=== PATIENT | female | born 1955 | race Caucasian/White ===

== ENCOUNTER 2023-04-13 06:42 | Outpatient (OUT) | payer MEDICARE, BC, SELFPAY ==
[2023-04-13 07:28] LABS: Basophils Percent Auto 0.5 % (0.2-2.0); Eosinophils Absolute Auto 0.2 10^3/uL (0.0-0.7); Eosinophils Percent Auto 2.4 % (0.9-7.0); Hematocrit 40.5 % (36.0-48.0); Hemoglobin 13.2 g/dL (12.0-16.0); Immature Granulocytes Abs Auto 0.03 10^3/uL (0.00-0.03); Immature Granulocytes Pct Auto 0.4 % (0.0-0.5); Mean Corpuscular HGB Conc 32.6 g/dL (29.9-35.2); Mean Corpuscular Hemoglobin 29.4 pg (26.7-34.0); Mean Corpuscular Volume 90.2 fL (81.0-99.0); Mean Platelet Volume 10.6 fL (9.5-13.5); Monocytes Absolute Auto 0.6 10^3/uL (0.3-0.8); Monocytes Percent Auto 6.9 % (1.7-12.0); Neutrophils Absolute Auto 5.2 10^3/uL (1.4-6.5); Neutrophils Percent Auto 64.8 % (43.0-75.0); Platelet Count 255 10^3/uL (150-450); Red Blood Count 4.49 10^6/uL (4.20-5.40); Red Cell Distribution Width 14.8 % (11.0-15.0); White Blood Count 8.1 10^3/uL (4.0-11.0)
[2023-04-13 08:36] LABS: Alanine Aminotransferase 17 U/L (14-59); Albumin Globulin Ratio 1.1; Alkaline Phosphatase 77 U/L (46-116); Anion Gap 10.5; Aspartate Amino Transferase 16 U/L (15-37); BUN Creatinine Ratio 10.7; Bilirubin Total 0.6 mg/dL (0.2-1.0); Calcium 9.4 mg/dL (8.5-10.1); Carbon Dioxide 29.9 mmol/L (21.0-32.0); Chloride 106 mmol/L (98-107); Chol HDL Ratio 3.5; Cholesterol 184 mg/dL (<=200); Estimated GFR (African America >60 (>=60); Estimated GFR (Non-African Ame >60 (>=60); Globulin 3.8 g/dL; Glucose 101 mg/dL (74-106); HDL Cholesterol 52 mg/dL (40-60); LDL Cholesterol Calculated 108.6 mg/dL; Potassium 4.4 mmol/L (3.5-5.1); Sodium 142 mmol/L (136-145); Thyroid Stimulating Hormone 2.246 uIU/mL (0.358-3.740); Total Protein 7.8 g/dL (6.4-8.2); Triglycerides 117 mg/dL (<=150); VLDL CHOLESTEROL 23.4 mg/dL
[2023-04-13 09:28] LABS: Estimated Average Glucose 103 mg/dL; Glycohemoglobin A1C 5.2 % (4.5-6.2)
== END 2023-04-13 06:43 | disposition home or self-care (01) ==
PROVIDERS: PCP Family Medicine; Visit Provider Family Medicine
DX: E05.90 Thyrotoxicosis, unspecified without thyrotoxic crisis or storm (principal); E78.5 Hyperlipidemia, unspecified; R73.09 Other abnormal glucose; D64.9 Anemia, unspecified
CPT/HCPCS: 36415; 80053; 80061; 83036; 83540; 84436; 84443; 84479; 85025

== ENCOUNTER 2023-12-04 12:12 | Outpatient (OUT) | payer MEDICARE, BC, SELFPAY ==
--- NOTE | 2023-12-04 12:26 | XR_ITS ---
The [address] [address] Patient Name: KEIKO ESCOBEDO MRN: [id number] date: 1955 Sex: F Assigned Patient Location: [facility] Current Patient Location: Accession/Order Number: [id number] Exam Date: 12/04/2023 12:20 Report Date: 12/05/2023 07:45 At the request of: JASS UNDERWOOD Procedure: XR cervical spine 5V EXAMINATION: XR cervical spine 5V HISTORY: Cervical Arthritis M46.92 ; chronic left side neck pain ; no known injury. COMPARISON: No relevant comparison available. FINDINGS: BONES: Grade 1 anterolisthesis of C4 on 5. No fracture or bone lesion. Mild degenerative facet arthropathy C4-C5, C5-C6. DISC SPACES: Moderate narrowing C5-C6, C6-C7 with posterior disc-osteophyte complexes causing bilateral foramen narrowing, and likely central canal narrowing. PARASPINOUS: Negative. No paraspinous abnormality is seen. OTHER: Negative. XR/XR cervical spine 5V IMPRESSION: 1. Degenerative disc disease of lower cervical spine resulting in foramen, and likely central canal, narrowing. Electronically authenticated by: EDINSON GREGORIO Date: 12/05/2023 07:45
== END 2023-12-04 12:13 | disposition home or self-care (01) ==
LOC: RAD 12:13
PROVIDERS: PCP Family Medicine; Visit Provider Family Medicine
DX: M46.92 Unspecified inflammatory spondylopathy, cervical region (principal); M50.30 Other cervical disc degeneration, unspecified cervical region
CPT/HCPCS: 72050

== ENCOUNTER 2023-12-10 13:27 | Outpatient (OUT) | payer MEDICARE, BC, SELFPAY ==
--- NOTE | 2023-12-10 13:31 | MR_ITS ---
[address] [address] Patient Name: KEIKO ESCOBEDO MRN: [id number] date: 1955 Sex: F Assigned Patient Location: MRI Current Patient Location: MRI Accession/Order Number: [id number] Exam Date: 12/10/2023 13:38 Report Date: 12/10/2023 14:37 At the request of: JASS UNDERWOOD Procedure: MR cervical spine wo con EXAM: MR cervical spine wo con HISTORY: Cervical Arthritis M46.92 COMPARISON: Cervical spine radiographs from 12/04/2023 TECHNIQUE: Multiplanar multisequence MRI was obtained through the cervical spine without contrast. FINDINGS: Osseous: The vertebral body heights are maintained. No fracture. No bone marrow edema. Disc height loss at C5-C6 and C6-C7 with associated osteophytes. Anterolisthesis of C4 relative to C5 of 0.2 cm. Cervical spinal cord: No abnormal signal is demonstrated within the substance of the cervical spinal cord. Soft tissues/ligaments: The ligaments appear intact. The prevertebral soft tissues and posterior paraspinal musculature are normal in signal intensity. Disc levels: C2-C3: No disc protrusion, spinal canal stenosis, or neural foraminal stenosis. C3-C4: Small posterior disc bulge. Mild spinal canal stenosis. No significant foraminal stenosis C4-C5: A small broad-based posterior disc bulge. Mild left facet arthrosis. Mild left foraminal stenosis. Mild spinal canal stenosis. C5-C6: Broad-based posterior disc bulge/osteophyte complex. Posterior ligamentous thickening. Moderate spinal canal stenosis. Mild left foraminal stenosis. C6-C7: Broad-based posterior disc bulge/osteophyte complex. Moderate spinal canal stenosis. Moderate left foraminal stenosis. C7-T1: Small posterior disc bulge. Mild spinal canal stenosis. Mild bilateral facet arthrosis. No significant spinal canal stenosis. MR/MR cervical spine wo con IMPRESSION: 1. Multilevel degenerative changes of the cervical spine most notably at C5-C6 and C6/C7 where there is moderate spinal canal stenosis and mild to moderate foraminal stenosis as above. Electronically authenticated by: JESUS QUIJANO Date: 12/10/2023 14:37
== END 2023-12-10 13:28 | disposition home or self-care (01) ==
LOC: MRI 13:27
PROVIDERS: PCP Family Medicine; Visit Provider Family Medicine
DX: M46.92 Unspecified inflammatory spondylopathy, cervical region (principal); M50.322 Other cervical disc degeneration at C5-C6 level; M50.323 Other cervical disc degeneration at C6-C7 level
CPT/HCPCS: 72141

== ENCOUNTER 2023-12-23 08:59 | Outpatient (OUT) | payer MEDICARE, BC, SELFPAY ==
--- NOTE | 2023-12-23 09:01 | MM_ITS ---
Patient Name: KEIKO ESCOBEDO MR#: [id number] : 1955 Exam Date: 12/23/2023 Ordering Doctor: DR Ivan Ortega . RADIOLOGY REPORT PROCEDURE: MM TOMOSYNTHESIS SCREENING BI COMPARISON: MG MAMM SCREEN 3D BEATRICE CAD, 09/18/2022. MG MAMM SCREEN 3D BEATRICE CAD, 02/27/2021. MG MAMM SCREEN BEATRICE W CAD, 02/28/2019. MG MAMM SCREEN BEATRICE W CAD, 01/12/2018. INDICATIONS: Screening Calculator Name NCI Breast Cancer Risk Assessment Tool 5 Year Breast Cancer Risk 2.40% Lifetime Breast Cancer Risk 6.90% Personal Breast Cancer No Personal Ovarian Cancer No Treatments None Family Cancers None LOCATION: [facility] BREAST COMPOSITION: Extremely dense, which lowers the sensitivity of mammography. FINDINGS: DIAGNOSTIC CATEGORY 2--BENIGN FINDING: RIGHT BREAST: No significant suspicious finding. Stable benign-appearing calcification. No significant change has occurred. LEFT BREAST: No significant suspicious finding. Stable benign-appearing calcification. No significant change has occurred. RECOMMENDATIONS: ROUTINE MAMMOGRAM AND CLINICAL EVALUATION IN 12 MONTHS. PLEASE NOTE: A NORMAL MAMMOGRAM DOES NOT EXCLUDE THE POSSIBILITY OF BREAST CANCER. A CLINICALLY SUSPICIOUS PALPABLE LUMP SHOULD BE BIOPSIED. Dictated by: Medhat Luciano M.D. on 12/23/2023 at 15:45 Approved by: Medhat Luciano M.D. on 12/23/2023 at 15:53
--- OUTSIDE RECORDS SUMMARY | 2023-12-23 09:19 | XMS_ITS | CCD ---
Author Organization [facility] Care Team Providers Care Nut Roaster Helper Name Role Phone CORINA Thompson Attending Provider [phone] Lydia Thompson Attending Unavailable Lydia Thompson Admitting Unavailable NO FAMILY, PHYSICIAN Primary Care Unavailable KJ, DR REGAN Admitting Unavailable RITAY, DR REGAN Primary Care Unavailable RITAY, DR REGAN Attending Unavailable HOY, DR REGAN Admitting Unavailable HOY, DR REGAN Primary Care Unavailable HOY, DR REGAN Consulting Unavailable RITAY, DR REGAN Attending Unavailable ZIEBER, DR EDINSON Asencio Consulting Unavailable KJ, DR REGAN Admitting Unavailable HOY, DR REGAN Primary Care Unavailable HOY, DR REGAN Consulting Unavailable KJ, DR REGAN Attending Unavailable Problems Active Problems Problem Classification Problem Date Documented Da te Episodic/Chronic Disorders of lipid metabolism (1 source) Hyperlipidemia, unspecified; Translations: [HYPERLIPIDEMIA UNSPECIFIED] Onset: 03-18-2022 Chronic Nutritional deficiencies (4 sources) Vitamin D deficiency, unspecified; Translations: [VITAMIN D DEFICIENCY UNSPECIFIED] Onset: 03-17-2022 Chronic Other screening for suspected conditions (not mental disorders or infectious disease) (4 sources) Encounter for screening mammogram for malignant neoplasm of breast; Translations: [ENC SCR MAMMO MALIG NEOPLASM BREAST] Onset: 09-18-2022 Episodic Unclassified (1 source) Frequency of micturition; Translations: [Frequency of micturition] Onset: 07-05-2022 Past or Other Problems Problem Classification Problem Date Documented Da te Episodic/Chronic Deficiency and other anemia (1 source) Anemia, unspecified; Translations: [ANEMIA UNSPECIFIED] Onset: 03-18-2022 Episodic Diabetes mellitus without complication (1 source) Other abnormal glucose; Translations: [OTHER ABNORMAL GLUCOSE] Onset: 03-18-2022 Episodic Other gastrointestinal disorders (1 source) Constipation, unspecified; Translations: [CONSTIPATION UNSPECIFIED] Onset: 03-18-2022 Episodic Results Test Name Value Interpretation Reference Range Facility MG MAMM SCREEN 3D BEATRICE CADon 09-18-2022 MG MAMM SCREEN 3D BEATRICE CAD Patient: KEIKO ESCOBEDO Exam Date: 09/18/2022 : 1955 Gender:F Ordering : DR JASS UNDERWOOD . Admission #: [id number] Family : Order #: [id number] CLICK HERE TO VIEW EXAM RADIOLOGY REPORT PROCEDURE: MAMMOGRAM SCREENING 3D BILATERAL CAD COMPARISON: MG MAMM SCREEN 3D BEATRICE CAD, 02/27/2021. MG MAMM SCREEN BEATRICE W CAD, 02/28/2019. INDICATIONS: Screening mammography Calculator Name NCI Breast Cancer Risk Assessment Tool 5 Year Breast Cancer Risk 2.40% Lifetime Breast Cancer Risk 7.30% Personal Breast Cancer No Personal Ovarian Cancer No Treatments None Family Cancers None LOCATION: [facility] BREAST COMPOSITION: Extremely dense, which lowers the sensitivity of mammography. FINDINGS: DIAGNOSTIC CATEGORY 2--BENIGN FINDING: RIGHT BREAST: No significant suspicious finding. Scattered benign-appearing calcifications are present. No significant change has occurred. LEFT BREAST: No significant suspicious finding. Scattered benign-appearing calcifications are present. No significant change has occurred. RECOMMENDATIONS: ROUTINE MAMMOGRAM AND CLINICAL EVALUATION IN 12 MONTHS. PLEASE NOTE: A NORMAL MAMMOGRAM DOES NOT EXCLUDE THE POSSIBILITY OF BREAST CANCER. A CLINICALLY SUSPICIOUS PALPABLE LUMP SHOULD BE BIOPSIED. Dictated by: Edinson Luciano M.D. on 09/18/2022 at 15:42 Approved by: Edinson Luciano M.D. on 09/18/2022 at 15:45 Normal [facility] Urine Cultureon 07-05-2022 Bacteria identified Cx Nom (U) Reason for Exam Urinary frequency Urine ORGANISM: Escherichia coli (O:ESCCOL) [place] Count >100,000 Aerobic LELAND Charge (NUC86) ----- SUSCEPTIBILITY ---- ORGANISM: O:ESCCOL ANTIBIOTIC INTERPRETATION LELAND Amikacin S <16 Ampicillin S <8 Ampicillin/Sulbactam S <8/4 Aztreonam S <4 Cefazolin S <2 Cefepime S <2 Ceftazidime S <1 Ceftazidime/Avibacta m S <8 Ceftriaxone S <1 Ciprofloxacin S <1 Ertapenem S <0.5 Gentamicin S <4 Levofloxacin S <2 Meropenem S <1 Nitrofurantoin S <32 Piperacillin/Tazobac olsen S <16 Tetracycline S <4 Tigecycline S <2 Tobramycin S <4 Trimethoprim/Sulfame thoxazole S <2/38 S = SUSCEPTIBLE I = INTERMEDIATE R = RESISTANT BLANK = DATA NOT AVAILABLE, OR DRUG NOT ADVISABLE OR TESTED R* = RESISTANCE DUE TO EXTENDED SPECTRUM BETA-LACTAMASES ESBL = EXTENDED SPECTRUM BETA-LACTAMASE TFG = THYMIDINE-DEPENDENT STRAIN LILA = BETA-LACTAMASE POSITIVE IB = INDUCIBLE BETA-LACTAMASE. APPEARS IN PLACE OF 'S' WITH SPECIES KNOWN TO POSSESS INDUCIBLE BETA-LACTAMASES. POTENTIALLY THEY MAY BECOME RESISTANT TO ALL B-LACTAM DRUGS. PERFORMED BY: [place] [address] PATHOLOGIST APPEALS REPRESENTATIVE EDI HARVEY M.D. Normal [facility] Comment on above: Performed By: #### C UU #### [address] INSULINon 03-18-2022 Insulin 3.5 uIU/mL Normal 2.6-24.9 [facility] Comment on above: Performed By: #### I NSULIN #### [facility] [address] [place] [address] Dr. Chantel James CBC AUTO DIFFon 03-17-2022 BASO # 0.0 103/ul Normal 0.0-0.1 [facility] Comment on above: Performed By: #### C BC #### [facility] [address] [place] [address] Dr. Chantel James Basophils/100 WBC (Bld) 0.5 % Normal 0.2-2.0 [facility] Comment on above: Performed By: #### C BC #### [facility] [address] [place] [address] Dr. Chantel James EO # 0.2 103/ul Normal 0.0-0.7 [facility] Comment on above: Performed By: #### C BC #### [facility] [address] [place] [address] Dr. Chantel James Eosinophils/100 WBC (Bld) 2.6 % Normal 0.9-7.0 [facility] Comment on above: Performed By: #### C BC #### [facility] [address] [place] [address] Dr. Chantel James Erythrocyte distribution width (RBC) [Ratio] 14.6 % Normal 11.0-15.0 [facility] Comment on above: Performed By: #### C BC #### [facility] [address] [place] [address] Dr. Chantel James Hematocrit (Bld) [Volume fraction] 39.4 % Normal 36.0-48.0 [facility] Comment on above: Performed By: #### C BC #### [facility] [address] [place] [address] Dr. Chantel James Hemoglobin (Bld) [Mass/Vol] 12.6 g/dL Normal 12.0-16.0 [facility] Comment on above: Performed By: #### C BC #### [facility] [address] [place] [address] Dr. Chantel James IG # 0.03 10e3/ul Normal 0.00-0.03 [facility] Comment on above: Performed By: #### C BC #### [facility] [address] [place] [address] Dr. Chantel James IG % 0.4 % Normal 0.0-0.5 [facility] Comment on above: Performed By: #### C BC #### [facility] [address] [place] [address] Dr. Chantel James LYMPH # 2.3 103/ul Normal 1.2-3.8 [facility] Comment on above: Performed By: #### C BC #### [facility] [address] [place] [address] Dr. Chantel James Lymphocytes/100 WBC (Bld) 28.0 % Normal 20.5-60.0 [facility] Comment on above: Performed By: #### C BC #### [facility] [address] [place] [address] Dr. Chantel James MANUAL DIFF REQ NO Normal [facility] Comment on above: Performed By: #### C BC #### [facility] [address] [place] [address] Dr. Chantel James MCH (RBC) [Entitic mass] 29.4 pg Normal 26.7-34.0 [facility] Comment on above: Performed By: #### C BC #### [facility] [address] [place] [address] Dr. Chantel James MCHC (RBC) [Mass/Vol] 32.0 g/dL Normal 29.9-35.2 [facility] Comment on above: Performed By: #### C BC #### [facility] [address] [place] [address] Dr. Chantel James MCV (RBC) [Entitic vol] 91.8 fL Normal 81.0-99.0 [facility] Comment on above: Performed By: #### C BC #### [facility] [address] [place] [address] Dr. Chantel James MONO # 0.6 103/ul Normal 0.3-0.8 [facility] Comment on above: Performed By: #### C BC #### [facility] [address] [place] [address] Dr. Chantel James Monocytes/100 WBC (Bld) 7.7 % Normal 1.7-12.0 [facility] Comment on above: Performed By: #### C BC #### [facility] [address] [place] [address] Dr. Chantel James NEUT # 4.9 103/ul Normal 1.4-6.5 [facility] Comment on above: Performed By: #### C BC #### [facility] [address] [place] [address] Dr. Chantel James Neutrophils/100 WBC (Bld) 60.8 % Normal 43.0-75.0 [facility] Comment on above: Performed By: #### C BC #### [facility] [address] [place] [address] Dr. Chantel James Platelet mean volume (Bld) [Entitic vol] 10.5 fL Normal 9.5-13.5 [facility] Comment on above: Performed By: #### C BC #### [facility] [address] [place] [address] Dr. Chantel James PLT 261 103/ul Normal 150-450 [facility] Comment on above: Performed By: #### C BC #### [facility] [address] [place] [address] Dr. Chantel James RBC 4.29 106/ul Normal 4.20-5.40 [facility] Comment on above: Performed By: #### C BC #### [facility] [address] [place] [address] Dr. Chantel James WBC 8.1 103/ul Normal 4.0-11.0 [facility] Comment on above: Performed By: #### C BC #### [facility] [address] [place] [address] Dr. Chantel James GLYCOHEMOGLOBIN A1Con 2021 ADA RECOMMENDATION SEE BELOW Normal [facility] Comment on above: Result Comment: ADA RECOMMENDED LIMIT 4.0 - 6.0 ADA THERAPEUTIC TARGET < 7.0 ACTION SUGGESTED > 7.0 Performed By: #### A 1C #### [facility] [address] [place] [address] Dr. Chantel James Glucose [Mass/Vol] 105 mg/dL Normal [facility] Comment on above: Performed By: #### A 1C #### [facility] [address] [place] [address] Dr. Chantel James HbA1c (Bld) [Mass fraction] 5.3 % Normal 4.5-6.2 [facility] Comment on above: Performed By: #### A 1C #### [facility] [address] [place] [address] Dr. Chantel James IRONon 03-17-2022 Iron [Mass/Vol] 83.0 ug/dL Normal 50.0-170.0 [facility] Comment on above: Performed By: #### V ITAD, IRON #### [facility] [address] [address] [address] Chantel James LIPID PROFILEon 03-17-2022 CHOL-HDL RATIO NORM SEE BELOW Normal [facility] Comment on above: Result Comment: 3.3 - 4.4 LOW RISK 4.4 - 7.1 AVERAGE RISK 7.1 - 11.0 MODERATE RISK >11.0 HIGH RISK Performed By: #### L IPID, TSH, CMP #### [facility] [address] [address] [address] Chantel James Cholesterol [Mass/Vol] 250 mg/dL Critically high <=200 [facility] Comment on above: Performed By: #### L IPID, TSH, CMP #### [facility] [address] [address] [address] Chantel James Cholesterol in HDL [Mass/Vol] 49 mg/dL Normal 40-60 [facility] Comment on above: Performed By: #### L IPID, TSH, CMP #### [facility] [address] [address] [address] Chantel James Cholesterol in LDL [Mass/Vol] 173.8 mg/dL Normal [facility] Comment on above: Performed By: #### L IPID, TSH, CMP #### [facility] [address] [address] [address] Chantel James Cholesterol.total/Cho lesterol in HDL [Mass ratio] 5.1 {ratio} Normal [facility] Comment on above: Performed By: #### L IPID, TSH, CMP #### [facility] [address] [address] [address] Chantel James HDL NORMAL > or = 60 mg/dl - LOW CARDIOVASCULAR RISK <40 mg/dl - HIGH CARDIOVASCULAR RISK Normal [facility] Comment on above: Performed By: #### L IPID, TSH, CMP #### [facility] [address] [place] [address] Dr. Chantel James LDL CALC NORMAL SEE BELOW Normal [facility] Comment on above: Result Comment: <100 mg/dl OPTIMAL 100 - 129 mg/dl NEAR OR ABOVE OPTIMAL 130 - 159 mg/dl BORDERLINE HIGH 160 - 189 mg/dl HIGH >190 mg/dl VERY HIGH Performed By: #### L IPID, TSH, CMP #### [facility] [address] [address] [address] Chantel James Triglyceride [Mass/Vol] 136 mg/dL Normal <=150 [facility] Comment on above: Performed By: #### L IPID, TSH, CMP #### [facility] [address] [address] [address] Chanetl James VLDL CALC 27.2 mg/dL Normal [facility] Comment on above: Performed By: #### L IPID, TSH, CMP #### [facility] [address] [place] [address] Dr. Chantel James PROF 14(COMP METB)on 022 Albumin [Mass/Vol] 4.0 g/dL Normal 3.4-5.0 [facility] Comment on above: Performed By: #### L IPID, TSH, CMP #### [facility] [address] [place] [address] Dr. Chantel James Albumin/Globulin [Mass ratio] 1.1 {ratio} Normal [facility] Comment on above: Performed By: #### L IPID, TSH, CMP #### [facility] [address] [place] [address] Dr. Chantel James ALP [Catalytic activity/Vol] 75 U/L Normal 46-116 [facility] Comment on above: Performed By: #### L IPID, TSH, CMP #### [facility] [address] [address] [address] Chantel James ALT [Catalytic activity/Vol] 26 U/L Normal 14-59 [facility] Comment on above: Performed By: #### L IPID, TSH, CMP #### [facility] [address] [place] [address] Dr. Chantel James Anion gap [Moles/Vol] 13.3 mmol/L Normal [facility] Comment on above: Performed By: #### L IPID, TSH, CMP #### [facility] [address] [place] [address] Dr. Chantel James AST [Catalytic activity/Vol] 25 U/L Normal 15-37 [facility] Comment on above: Performed By: #### L IPID, TSH, CMP #### [facility] [address] [address] [address] Chantel James Bilirubin [Mass/Vol] 0.5 mg/dL Normal 0.2-1.0 [facility] Comment on above: Performed By: #### L IPID, TSH, CMP #### [facility] [address] [address] [address] Chantel James Calcium [Mass/Vol] 9.2 mg/dL Normal 8.5-10.1 [facility] Comment on above: Performed By: #### L IPID, TSH, CMP #### [facility] [address] [place] [address] Dr. Chantel James Chloride [Moles/Vol] 104 mmol/L Normal 98-107 [facility] Comment on above: Performed By: #### L IPID, TSH, CMP #### [facility] [address] [place] [address] Dr. Chantel James CO2 [Moles/Vol] 28.4 mmol/L Normal 21.0-32.0 [facility] Comment on above: Performed By: #### L IPID, TSH, CMP #### [facility] [address] [place] [address] Dr. Chantel James Creatinine [Mass/Vol] 1.23 mg/dL Critically high 0.55-1.02 [facility] Comment on above: Performed By: #### L IPID, TSH, CMP #### [facility] [address] [place] [address] Dr. Chantel James EGFR-AF [place] 53 mL/min/1.73m2 Critically low >=60 [facility] Comment on above: Performed By: #### L IPID, TSH, CMP #### [facility] [address] [place] [address] Dr. Chantel James EGFR-NON AF [place] 43 mL/min/1.73m2 Critically low >=60 [facility] Comment on above: Performed By: #### L IPID, TSH, CMP #### [facility] [address] [address] [address] Chantel James Globulin (S) [Mass/Vol] 3.8 g/dL Normal [facility] Comment on above: Performed By: #### L IPID, TSH, CMP #### [facility] [address] [place] [address] Dr. Chantel James Glucose [Mass/Vol] 99 mg/dL Normal 74-106 [facility] Comment on above: Performed By: #### L IPID, TSH, CMP #### [facility] [address] [place] [address] Dr. Chantel James Potassium [Moles/Vol] 4.7 mmol/L Normal 3.5-5.1 [facility] Comment on above: Performed By: #### L IPID, TSH, CMP #### [facility] [address] [place] [address] Dr. Chantel James Protein [Mass/Vol] 7.8 g/dL Normal 6.4-8.2 [facility] Comment on above: Performed By: #### L IPID, TSH, CMP #### [facility] [address] [place] [address] Dr. Chantel James Sodium [Moles/Vol] 141 mmol/L Normal 136-145 [facility] Comment on above: Performed By: #### L IPID, TSH, CMP #### [facility] [address] [place] [address] Dr. Chantel James Urea nitrogen [Mass/Vol] 17.0 mg/dL Normal 7.0-18.0 [facility] Comment on above: Performed By: #### L IPID, TSH, CMP #### [facility] [address] [place] [address] Dr. Chantel James Urea nitrogen/Creatinine [Mass ratio] 13.8 mg/mg Normal [facility] Comment on above: Performed By: #### L IPID, TSH, CMP #### [facility] [address] [place] [address] Dr. Chantel James TSHon 03-17-2022 TSH 1.674 uIU/mL Normal 0.358-3.740 [facility] Comment on above: Performed By: #### L IPID, TSH, CMP #### [facility] [address] [address] [address] Chantel James VITAMIN D 25 OHon 03-17-2022 VIT D 25-OH 29.9 ng/mL Normal [facility] Comment on above: Performed By: #### V ITAD, IRON #### [facility] [address] [address] [address] Chantel James VIT D RANGES SEE BELOW Normal [facility] Comment on above: Result Comment: <20 ng/mL Vit D deficient 20 - <30 ng/mL Vit D insufficient 30 - 100 ng/mL Vit D sufficient >100 ng/mL Potential Toxicity Performed By: #### V ITAD, IRON #### [facility] [address] [address] [address] Chantel James Consent for COVID Vaccineon 12-06-2020 SARS-CoV-2 (COVID-19) RNA GRAYSON+probe Ql (Unsp spec) [id number] 5#1.00CD:127 Normal [facility] Consent for COVID Vaccineon 11-01-2020 SARS-CoV-2 (COVID-19) RNA GRAYSON+probe Ql (Unsp spec) [id number] 4#1.00CD:127 Normal [facility] Consent for Treatmenton Consent for Treatment [id number] 7#1.00CD:127 Normal [facility] Coding Summary.on 10-31-2020 Coding Summary. CODING DATE: 10/31/2020 FINAL [facility] DSC STATUS: PAYOR: Medicare APC DESCRIPTION [employer] - Level 1B ($11-$20) ADMIT DX: REASON FOR VISIT DX: Z23 Encounter for immunization FINAL DX: PRINCIPAL: Z23 Encounter for immunization SECONDARY: PYMT PROC APC STAT DESCRIPTION DOCTOR NAME DATE NOTE: The code number assigned matches the documented diagnosis and / or procedure in the patient's chart. However, the narrative phrase printed from the coding software may appear abbreviated, or result in slightly different terminology. Coded By: Kamila Nogueira CphT Date Saved: 10/31/2020 01:42 pm Normal [facility] Encounters Encounter Date Encounter Type Care Provider Facility Start: 09-18-2022 End: 09-19-[address] JASS UNDERWOOD Facility:[facility] Start: 07-05-2022 End: 07-05-2022 ambulatory Lydia Thompson Facility:[facility] Start: 07-05-2022 End: 07-05-2022 ambulatory [facility] Lydia Thompson Work Phone: [facility] Work Phone: Start: 07-05-2022 End: 07-05-2022 Departed Referred [facility] Lydia Thompson Work Phone: [facility] [place] Start: 03-17-2022 End: 03-18-[address] JASS UNDERWOOD Facility:[facility] Start: 01-17-[address] JASS UNDERWOOD Facility :[facility] Plan of Treatment Date Care Activity Detail Author Bacteria identified in Urine by Culture [facility] Payers Date Payer Category Payer Medicare [id number] 1961 Self-pay 1961 Unknown [id number] 1955 Unknown [id number] .16.84 [id number] 1955 Unknown [id number] .16.84 [id number] 1955 Unknown [id number] .16.84 [id number] Unknown [id number] .16.8 [id number] Social History Date Type Detail Facility [facility] Work Phone: Start: 1955 Sex Assigned At Female [facility] Evaluation note Note Date & Type Note Facility Evaluation note No assessment information availa luciano [facility] Work Phone: Summary Purpose Family History No Family History Records FoundNo Family History Records FoundNo Family History Records Found Advance Directives No Advanced Directives Records FoundNo Advanced Directives Records FoundNo Advanced Directives Records Found Chief Complaint and Reason for Visit Chief Complaint Urinary frequency Additional Source Comments INFORMATION SOURCE (unrecogn ized section and content) DATE CREATED AUTHOR 02/27/2021 [facility] DATE CREATED AUTHOR AUTHOR'S ORGANIZ ATION 07/09/2022 [facility] DATE CREATED AUTHOR AUTHOR'S ORGANIZ ATION 09/25/2022 [facility] Care Teams (unrecognized sec tion and content) Team Status: Inactive Member Role Status Dates CORINA Sabillon Attending Provider Active Goals (unrecognized section and content) Goals may be documented in a n alternate section FOR RECORDS PERTAINING TO PATIENTS WHO ARE OR HAVE BEEN ENROLLED IN A CHEMICAL DEPENDENCY/SUBSTANCEABUSE PROGRAM, SOME INFORMATION MAY BE OMITTED. This clinical summary was aggregated from multiple sources. Caution should be exercised in using it in the provision of clinical care. This summary normalizes information from multiple sources, and as a consequence, information in this document may materially change the coding, format and clinical context of patient data. In addition, data may be omitted in some cases. CLINICAL DECISIONS SHOULD BE BASED ON THE PRIMARY CLINICAL RECORDS. [facility] provides no warranty or guarantee of the accuracy or completeness of information in this document.
== END 2023-12-23 09:00 | disposition home or self-care (01) ==
LOC: MAMMO 08:59
PROVIDERS: PCP Family Medicine; Visit Provider Family Medicine
DX: Z12.31 Encounter for screening mammogram for malignant neoplasm of breast (principal)
CPT/HCPCS: 77063; 77067

== ENCOUNTER 2024-05-17 07:03 | Outpatient (OUT) | payer MEDICARE, BC, SELFPAY ==
--- OUTSIDE RECORDS SUMMARY | 2024-05-17 07:07 | XMS_ITS | CCD ---
Author Organization [facility] Care Team Providers Care Powdered Metal Supervisor Name Role Phone CORINA Thompson Attending Provider [phone] Lydia Thompson Attending Unavailable Lydia Thompson Admitting Unavailable NO FAMILY, PHYSICIAN Primary Care Unavailable KJ, DR REGAN Admitting Unavailable HOY, DR REGAN Primary Care Unavailable HOY, DR REGAN Attending Unavailable HOY, DR REGAN Admitting Unavailable HOY, DR REGAN Primary Care Unavailable HOY, DR REGAN Consulting Unavailable HOY, DR REGAN Attending Unavailable ZIEBER, DR EDINSON Asencio Consulting Unavailable KJ, DR REGAN Admitting Unavailable KJ, DR REGAN Primary Care Unavailable HOY, DR [...] : DR JASS UNDERWOOD . Admission #: [id number] Family : Order #: [id number] CLICK HERE TO VIEW EXAM RADIOLOGY REPORT [...] Treatments None Family Cancers None LOCATION: [facility] BREAST COMPOSITION: Extremely dense, which lowers the [...] M.D. on 09/18/2022 at 15:45 Normal [facility] Urine Cultureon 07-05-2022 Bacteria identified Cx Nom (U) Reason for Exam Urinary frequency Urine ORGANISM: Escherichia coli (O:ESCCOL) [place] Count >100,000 Aerobic LELAND Charge (NUC86) ----- [...] RESISTANT TO ALL B-LACTAM DRUGS. PERFORMED BY: [place] [id number] PATHOLOGIST CORE DRILLER HELPER EDI HARVEY M.D. [facility] Comment on above: Performed By: #### C UU #### [facility] [address] [place] [address] INSULINon 03-18-2022 Insulin 3.5 uIU/mL Normal 2.6-24.9 [facility] Comment on above: Performed By: #### I NSULIN #### [facility] [address] [place] [address] Dr. Chantel James CBC AUTO DIFFon 03-17-2022 BASO # 0.0 103/ul Normal 0.0-0.1 [facility] Comment on above: Performed By: #### C BC #### [facility] [address] [place] [address] Dr. Chantel James Basophils/100 WBC (Bld) 0.5 % Normal 0.2-2.0 [facility] Comment on above: Performed By: #### C BC #### [facility] [address] [place] [address] Dr. Chantel James EO # 0.2 103/ul Normal 0.0-0.7 [facility] Comment on above: Performed By: #### C BC #### [facility] [address] [place] [address] Dr. Chantel James Eosinophils/100 WBC (Bld) 2.6 % Normal 0.9-7.0 [facility] Comment on above: Performed By: #### C BC #### [facility] [address] [place] [address] Dr. Chantel James Erythrocyte distribution width (RBC) [Ratio] 14.6 % Normal 11.0-15.0 [facility] Comment on above: Performed By: #### C BC #### [facility] [address] [place] [address] Dr. Chantel James Hematocrit (Bld) [Volume fraction] 39.4 % Normal 36.0-48.0 [facility] Comment on above: Performed By: #### C BC #### [facility] [address] [place] [address] Dr. Chantel James Hemoglobin (Bld) [Mass/Vol] 12.6 g/dL Normal 12.0-16.0 [facility] Comment on above: Performed By: #### C BC #### [facility] [address] [place] [address] Dr. Chantel James IG # 0.03 10e3/ul Normal 0.00-0.03 [facility] Comment on above: Performed By: #### C BC #### [facility] [address] [place] [address] Dr. Chantel James IG % 0.4 % Normal 0.0-0.5 [facility] Comment on above: Performed By: #### C BC #### [facility] [address] [place] [address] Dr. Chantel James LYMPH # 2.3 103/ul Normal 1.2-3.8 [facility] Comment on above: Performed By: #### C BC #### [facility] [address] [place] [address] Dr. Chantel James Lymphocytes/100 WBC (Bld) 28.0 % Normal 20.5-60.0 [facility] Comment on above: Performed By: #### C BC #### [facility] [address] [place] [address] Dr. Chantel James MANUAL DIFF REQ NO Normal [facility] Comment on above: Performed By: #### C BC #### [facility] [address] [place] [address] Dr. Chantel James MCH (RBC) [Entitic mass] 29.4 pg Normal 26.7-34.0 [facility] Comment on above: Performed By: #### C BC #### [facility] [address] [place] [address] Dr. Chantel James MCHC (RBC) [Mass/Vol] 32.0 g/dL Normal 29.9-35.2 [facility] Comment on above: Performed By: #### C BC #### [facility] [address] [place] [address] Dr. Chantel James MCV (RBC) [Entitic vol] 91.8 fL Normal 81.0-99.0 [facility] Comment on above: Performed By: #### C BC #### [facility] [address] [place] [address] Dr. Chantel James MONO # 0.6 103/ul Normal 0.3-0.8 [facility] Comment on above: Performed By: #### C BC #### [facility] [address] [place] [address] Dr. Chantel James Monocytes/100 WBC (Bld) 7.7 % Normal 1.7-12.0 [facility] Comment on above: Performed By: #### C BC #### [facility] [address] [place] [address] Dr. Chantel James NEUT # 4.9 103/ul Normal 1.4-6.5 [facility] Comment on above: Performed By: #### C BC #### [facility] [address] [place] [address] Dr. Chantel James Neutrophils/100 WBC (Bld) 60.8 % Normal 43.0-75.0 [facility] Comment on above: Performed By: #### C BC #### [facility] [address] [place] [address] Dr. Chantel James Platelet mean volume (Bld) [Entitic vol] 10.5 fL Normal 9.5-13.5 [facility] Comment on above: Performed By: #### C BC #### [facility] [address] [place] [address] Dr. Chantel James PLT 261 103/ul Normal 150-450 [facility] Comment on above: Performed By: #### C BC #### [facility] [address] [address] [address] Chantel James RBC 4.29 106/ul Normal 4.20-5.40 [facility] Comment on above: Performed By: #### C BC #### [facility] [address] [place] [address] Dr. Chantel James WBC 8.1 103/ul Normal 4.0-11.0 [facility] Comment on above: Performed By: #### C BC #### [facility] [address] [place] [address] Dr. Chantel James GLYCOHEMOGLOBIN A1Con 2021 ADA RECOMMENDATION SEE BELOW Normal [facility] Comment on above: Result Comment: ADA RECOMMENDED LIMIT 4.0 - 6.0 ADA THERAPEUTIC TARGET < 7.0 ACTION SUGGESTED > 7.0 Performed By: #### A 1C #### [facility] [address] [place] [address] Dr. Chantel James Glucose [Mass/Vol] 105 mg/dL Normal [facility] Comment on above: Performed By: #### A 1C #### [facility] [address] [place] [address] Dr. Chantel James HbA1c (Bld) [Mass fraction] 5.3 % Normal 4.5-6.2 [facility] Comment on above: Performed By: #### A 1C #### [facility] [address] [place] [address] Dr. hCantel James IRONon 03-17-2022 Iron [Mass/Vol] 83.0 ug/dL Normal 50.0-170.0 [facility] Comment on above: Performed By: #### V ITAD, IRON #### [facility] [address] [address] [address] Chantel James LIPID PROFILEon 03-17-2022 CHOL-HDL RATIO NORM SEE BELOW Normal [facility] Comment on above: Result Comment: 3.3 - 4.4 LOW RISK 4.4 - 7.1 AVERAGE RISK 7.1 - 11.0 MODERATE RISK >11.0 HIGH RISK Performed By: #### L IPID, TSH, CMP #### [facility] [address] [address] [address] Chantel James Cholesterol [Mass/Vol] 250 mg/dL Critically high <=200 [facility] Comment on above: Performed By: #### L IPID, TSH, CMP #### [facility] [address] [address] [address] Chantel James Cholesterol in HDL [Mass/Vol] 49 mg/dL Normal 40-60 [facility] Comment on above: Performed By: #### L IPID, TSH, CMP #### [facility] [address] [address] [address] Chantel James Cholesterol in LDL [Mass/Vol] 173.8 mg/dL Normal [facility] Comment on above: Performed By: #### L IPID, TSH, CMP #### [facility] [address] [address] [address] Chantel James Cholesterol.total/Cho lesterol in HDL [Mass ratio] 5.1 {ratio} Normal [facility] Comment on above: Performed By: #### L IPID, TSH, CMP #### [facility] [address] [address] [address] Chantel James HDL NORMAL > or = 60 mg/dl - LOW CARDIOVASCULAR RISK <40 mg/dl - HIGH CARDIOVASCULAR RISK Normal [facility] Comment on above: Performed By: #### L IPID, TSH, CMP #### [facility] [address] [place] [address] Dr. Chantel James LDL CALC NORMAL SEE BELOW Normal [facility] Comment on above: Result Comment: <100 mg/dl OPTIMAL 100 - 129 mg/dl NEAR OR ABOVE OPTIMAL 130 - 159 mg/dl BORDERLINE HIGH 160 - 189 mg/dl HIGH >190 mg/dl VERY HIGH Performed By: #### L IPID, TSH, CMP #### [facility] [address] [place] [address] Dr. Chantel James Triglyceride [Mass/Vol] 136 mg/dL Normal <=150 [facility] Comment on above: Performed By: #### L IPID, TSH, CMP #### [facility] [address] [place] [address] Dr. Chantel James VLDL CALC 27.2 mg/dL Normal [facility] Comment on above: Performed By: #### L IPID, TSH, CMP #### [facility] [address] [place] [address] Dr. Chantel James PROF 14(COMP METB)on 022 Albumin [Mass/Vol] 4.0 g/dL Normal 3.4-5.0 [facility] Comment on above: Performed By: #### L IPID, TSH, CMP #### [facility] [address] [place] [address] Dr. Chantel James Albumin/Globulin [Mass ratio] 1.1 {ratio} Normal [facility] Comment on above: Performed By: #### L IPID, TSH, CMP #### [facility] [address] [place] [address] Dr. Chantel James ALP [Catalytic activity/Vol] 75 U/L Normal 46-116 [facility] Comment on above: Performed By: #### L IPID, TSH, CMP #### [facility] [address] [place] [address] Dr. Chantel James ALT [Catalytic activity/Vol] 26 U/L Normal 14-59 [facility] Comment on above: Performed By: #### L IPID, TSH, CMP #### [facility] [address] [place] [address] Dr. Chantel James Anion gap [Moles/Vol] 13.3 mmol/L Normal [facility] Comment on above: Performed By: #### L IPID, TSH, CMP #### [facility] [address] [place] [address] Dr. Chantel James AST [Catalytic activity/Vol] 25 U/L Normal 15-37 [facility] Comment on above: Performed By: #### L IPID, TSH, CMP #### [facility] [address] [address] [address] Chantel James Bilirubin [Mass/Vol] 0.5 mg/dL Normal 0.2-1.0 [facility] Comment on above: Performed By: #### L IPID, TSH, CMP #### [facility] [address] [place] [address] Dr. Chantel James Calcium [Mass/Vol] 9.2 mg/dL Normal 8.5-10.1 [facility] Comment on above: Performed By: #### L IPID, TSH, CMP #### [facility] [address] [place] [address] Dr. Chantel James Chloride [Moles/Vol] 104 mmol/L Normal 98-107 [facility] Comment on above: Performed By: #### L IPID, TSH, CMP #### [facility] [address] [place] [address] Dr. Chantel James CO2 [Moles/Vol] 28.4 mmol/L Normal 21.0-32.0 [facility] Comment on above: Performed By: #### L IPID, TSH, CMP #### [facility] [address] [place] [address] Dr. Chantel James Creatinine [Mass/Vol] 1.23 mg/dL Critically high 0.55-1.02 [facility] Comment on above: Performed By: #### L IPID, TSH, CMP #### [facility] [address] [place] [address] Dr. Chantel James EGFR-AF NIGERIAN 53 mL/min/1.73m2 Critically low >=60 [facility] Comment on above: Performed By: #### L IPID, TSH, CMP #### [facility] [address] [place] [address] Dr. Chantel James EGFR-NON AF NIGERIAN 43 mL/min/1.73m2 Critically low >=60 [facility] Comment on above: Performed By: #### L IPID, TSH, CMP #### [facility] [address] [address] [address] Chantel James Globulin (S) [Mass/Vol] 3.8 g/dL Normal [facility] Comment on above: Performed By: #### L IPID, TSH, CMP #### [facility] [address] [address] [address] Chantel James Glucose [Mass/Vol] 99 mg/dL Normal 74-106 [facility] Comment on above: Performed By: #### L IPID, TSH, CMP #### [facility] [address] [address] [address] Chantel James Potassium [Moles/Vol] 4.7 mmol/L Normal 3.5-5.1 [facility] Comment on above: Performed By: #### L IPID, TSH, CMP #### [facility] [address] [place] [address] Dr. Chantel James Protein [Mass/Vol] 7.8 g/dL Normal 6.4-8.2 [facility] Comment on above: Performed By: #### L IPID, TSH, CMP #### [facility] [address] [place] [address] Dr. Chantel James Sodium [Moles/Vol] 141 mmol/L Normal 136-145 [facility] Comment on above: Performed By: #### L IPID, TSH, CMP #### [facility] [address] [place] [address] Dr. Chantel James Urea nitrogen [Mass/Vol] 17.0 mg/dL Normal 7.0-18.0 [facility] Comment on above: Performed By: #### L IPID, TSH, CMP #### [facility] [address] [place] [address] Dr. Chantel James Urea nitrogen/Creatinine [Mass ratio] 13.8 mg/mg Normal [facility] Comment on above: Performed By: #### L IPID, TSH, CMP #### [facility] [address] [place] [address] Dr. Chantel James TSHon 03-17-2022 TSH 1.674 uIU/mL Normal 0.358-3.740 [facility] Comment on above: Performed By: #### L IPID, TSH, CMP #### [facility] [address] [place], [place] [address] Dr. Chantel James VITAMIN D 25 OHon 03-17-2022 VIT D 25-OH 29.9 ng/mL Normal [facility] Comment on above: Performed By: #### V ITAD, IRON #### [facility] [address] [place], [place] [address] Dr. Chantel James VIT D RANGES SEE BELOW Normal [facility] Comment on above: Result Comment: <20 ng/mL Vit D deficient 20 - <30 ng/mL Vit D insufficient 30 - 100 ng/mL Vit D sufficient >100 ng/mL Potential Toxicity Performed By: #### V ITAD, IRON #### [facility] [address] [place], [place] [address] Dr. Chantel James Consent for COVID Vaccineon 12-06-2020 SARS-CoV-2 (COVID-19) RNA GRAYSON+probe Ql (Unsp spec) [id number] 5#1.00CD:127 Normal [facility] Consent for COVID Vaccineon 11-01-2020 SARS-CoV-2 (COVID-19) RNA GRAYSON+probe Ql (Unsp spec) [id number] 4#1.00CD:127 Normal [facility] Consent for Treatmenton Consent for Treatment [id number] 7#1.00CD:127 Normal [facility] Coding Summary.on 10-31-2020 Coding Summary. CODING DATE: 10/31/2020 FINAL [facility] STATUS: PAYOR: Medicare APC DESCRIPTION 1492 New [...] CphT Date Saved: 10/31/2020 01:42 pm Normal [facility] Encounters Encounter Date Encounter Type Care Provider Facility Start: 09-18-2022 End: 09-19-[address] JASS UNDERWOOD Facility:[facility] Start: 07-05-2022 End: 07-05-2022 ambulatory Lydia Thompson Facility:[facility] Start: 07-05-2022 End: 07-05-2022 ambulatory [employer] Lydia Thompson Work Phone: [facility] Work Phone: Start: 07-05-2022 End: 07-05-2022 Departed Referred [employer] Lydia Thompson Work Phone: [facility] [place] Start: 03-17-2022 End: 03-18-[address] JASS UNDERWOOD Facility:[facility] Start: 01-17-[address] JASS UNDERWOOD Facility :[facility] Plan of Treatment Date Care Activity Detail Author Bacteria identified in Urine by Culture [facility] Payers Date Payer Category Payer Medicare [id number] 1961 Self-pay 1961 Unknown [id number] 1955 Unknown [id number] .16.84 [id number] 1955 Unknown [id number] .16.84 [id number] 1955 Unknown [id number] .16.84 [id number] Unknown [id number] Social History Date Type Detail [facility] Work Phone: Start: 1955 Sex Assigned At Female [facility] Evaluation note Note Date & Type Note Facility Evaluation note No assessment information availa luciano [facility] Work Phone: Summary Purpose Family History No Family History Records FoundNo Family History Records FoundNo Family History Records Found Advance Directives No Advanced Directives Records FoundNo Advanced Directives Records FoundNo Advanced Directives Records Found Chief Complaint and Reason for Visit Chief Complaint Urinary frequency Additional Source Comments INFORMATION SOURCE (unrecogn ized section and content) DATE CREATED AUTHOR 02/27/2021 [employer] [facility] DATE CREATED AUTHOR AUTHOR'S ORGANIZ ATION 07/09/2022 [facility] DATE CREATED AUTHOR AUTHOR'S ORGANIZ ATION 09/25/2022 [facility] Care Teams (unrecognized sec tion and content) [...] BE BASED ON THE PRIMARY CLINICAL RECORDS. [facility]. provides no warranty or guarantee of the accuracy or completeness of information in this document.
[2024-05-17 07:29] LABS: Basophils Percent Auto 0.5 % (0.2-2.0); Eosinophils Absolute Auto 0.2 10^3/uL (0.0-0.7); Eosinophils Percent Auto 2.1 % (0.9-7.0); Hemoglobin 12.3 g/dL (12.0-16.0); Immature Granulocytes Abs Auto 0.02 10^3/uL (0.00-0.03); Immature Granulocytes Pct Auto 0.2 % (0.0-0.5); Lymphocytes Absolute Auto 2.1 10^3/uL (1.2-3.8); Lymphocytes Percent Auto 25.9 % (20.5-60.0); Mean Corpuscular HGB Conc 32.4 g/dL (29.9-35.2); Mean Corpuscular Hemoglobin 29.5 pg (26.7-34.0); Mean Corpuscular Volume 91.1 fL (81.0-99.0); Mean Platelet Volume 10.7 fL (9.5-13.5); Monocytes Absolute Auto 0.6 10^3/uL (0.3-0.8); Monocytes Percent Auto 7.7 % (1.7-12.0); Neutrophils Absolute Auto 5.2 10^3/uL (1.4-6.5); Neutrophils Percent Auto 63.6 % (43.0-75.0); Platelet Count 291 10^3/uL (150-450); Red Blood Count 4.17 10^6/uL (4.20-5.40); Red Cell Distribution Width 15.1 % (11.0-15.0); White Blood Count 8.2 10^3/uL (4.0-11.0)
[2024-05-17 07:54] LABS: Estimated Average Glucose 108 mg/dL; Glycohemoglobin A1C 5.4 % (4.5-6.2)
[2024-05-17 08:05] LABS: Alanine Aminotransferase 20 U/L (14-59); Albumin Globulin Ratio 1.1; Albumin Level 3.7 g/dL (3.4-5.0); Alkaline Phosphatase 63 U/L (46-116); Aspartate Amino Transferase 15 U/L (15-37); Bilirubin Total 0.5 mg/dL (0.2-1.0); Calcium 9.4 mg/dL (8.5-10.1); Chloride 106 mmol/L (98-107); Chol HDL Ratio 3.5; Cholesterol 175 mg/dL (<=200); Estimated GFR (African America >60 (>=60); Estimated GFR (Non-African Ame >60 (>=60); Free T3 2.14 pg/mL (2.18-3.98); Globulin 3.3 g/dL; Glucose 94 mg/dL (74-106); HDL Cholesterol 50 mg/dL (40-60); Sodium 145 mmol/L (136-145); Triglycerides 100 mg/dL (<=150)
[2024-05-17 08:16] LABS: Anion Gap 12.4; Carbon Dioxide 30.6 mmol/L (21.0-32.0)
== END 2024-05-17 07:04 | disposition home or self-care (01) ==
LOC: LAB 07:05
PROVIDERS: PCP Family Medicine; Visit Provider Family Medicine
DX: E05.90 Thyrotoxicosis, unspecified without thyrotoxic crisis or storm (principal); E55.9 Vitamin D deficiency, unspecified; E78.5 Hyperlipidemia, unspecified; R73.09 Other abnormal glucose; D64.9 Anemia, unspecified
CPT/HCPCS: 36415; 80053; 80061; 82306; 83036; 84436; 84443; 84481; 85025

== ENCOUNTER 2025-01-02 09:52 | Outpatient (OUT) | payer MEDICARE, BC, SELFPAY ==
--- NOTE | 2025-01-02 09:58 | MM_ITS ---
Patient Name: KEIKO ESCOBEDO MR#: [id number] : 1955 Exam Date: 01/02/2025 Ordering Doctor: DR Ivan Ortega . RADIOLOGY REPORT PROCEDURE: MM TOMOSYNTHESIS SCREENING BI COMPARISON: MM TOMOSYNTHESIS SCREENING BI, 12/23/2023. MG MAMM SCREEN 3D BEATRICE CAD, 09/18/2022. MG MAMM SCREEN 3D BEATRICE CAD, 02/27/2021. MG MAMM SCREEN BEATRICE W CAD, 01/12/2018. INDICATIONS: Screening Calculator Name NCI Breast Cancer Risk Assessment Tool 5 Year Breast Cancer Risk 2.40% Lifetime Breast Cancer Risk 6.60% Personal Breast Cancer No Personal Ovarian Cancer No Treatments None Family Cancers None LOCATION: [facility] BREAST COMPOSITION: The breasts are heterogeneously dense,which may obscure small masses. FINDINGS: DIAGNOSTIC CATEGORY 1--NEGATIVE. LEFT BREAST: No significant suspicious finding. RIGHT BREAST: No significant suspicious finding. RECOMMENDATIONS: ROUTINE MAMMOGRAM AND CLINICAL EVALUATION IN 12 MONTHS. PLEASE NOTE: A NORMAL MAMMOGRAM DOES NOT EXCLUDE THE POSSIBILITY OF BREAST CANCER. A CLINICALLY SUSPICIOUS PALPABLE LUMP SHOULD BE BIOPSIED. Dictated by: Hasmukh Elder DO on 01/02/2025 at 15:53 Approved by: Hasmukh Elder DO on 01/02/2025 at 15:55
--- OUTSIDE RECORDS SUMMARY | 2025-01-02 10:03 | XMS_ITS | CCD ---
Author Organization [facility] Care Team Providers Care Wardrobe Supervisor Name Role Phone CORINA Thompson Attending Provider [phone] Lydia Thompson Attending Unavailable Lydia Thompson Admitting [...] : DR JASS UNDERWOOD . Admission #: [id number] Family : Order #: [id number] CLICK HERE TO VIEW EXAM RADIOLOGY REPORT [...] Treatments None Family Cancers None LOCATION: [facility] BREAST COMPOSITION: Extremely dense, which lowers the [...] M.D. on 09/18/2022 at 15:45 Normal [facility] Urine Cultureon 07-05-2022 Bacteria identified Cx Nom (U) Reason for Exam Urinary frequency Urine ORGANISM: Escherichia coli (O:ESCCOL) [place] Count >100,000 Aerobic LELAND Charge (NUC86) ----- [...] RESISTANT TO ALL B-LACTAM DRUGS. PERFORMED BY: [place] [address] PATHOLOGIST VIDEO GAME ANIMATOR EDI HARVEY M.D. [facility] Comment on above: Performed By: #### C UU #### [facility] [address] [place] [address] INSULINon 03-18-2022 Insulin 3.5 uIU/mL Normal 2.6-24.9 [facility] Comment on above: Performed By: #### I NSULIN #### [facility] [address] [place] [address] Dr. Chantel James CBC AUTO DIFFon 03-17-2022 BASO # 0.0 103/ul Normal 0.0-0.1 [facility] Comment on above: Performed By: #### C BC #### [facility] [address] [place] [address] Dr. Chantel James Basophils/100 WBC (Bld) 0.5 % Normal 0.2-2.0 [facility] Comment on above: Performed By: #### C BC #### [facility] [address] [place] [address] Dr. Chantel James EO # 0.2 103/ul Normal 0.0-0.7 [facility] Comment on above: Performed By: #### C BC #### [facility] [address] [place] [address] Dr. Chantel James Eosinophils/100 WBC (Bld) 2.6 % Normal 0.9-7.0 [facility] Comment on above: Performed By: #### C BC #### [facility] [address] [place] [address] Dr. Chantel James Erythrocyte distribution width (RBC) [Ratio] 14.6 % Normal 11.0-15.0 [facility] Comment on above: Performed By: #### C BC #### [facility] [address] [place] [address] Dr. Chantel James Hematocrit (Bld) [Volume fraction] 39.4 % Normal 36.0-48.0 [facility] Comment on above: Performed By: #### C BC #### [facility] [address] [place] [address] Dr. Chantel James Hemoglobin (Bld) [Mass/Vol] 12.6 g/dL Normal 12.0-16.0 [facility] Comment on above: Performed By: #### C BC #### [facility] [address] [place] [address] Dr. Chantel James IG # 0.03 10e3/ul Normal 0.00-0.03 [facility] Comment on above: Performed By: #### C BC #### [facility] [address] [place] [address] Dr. Chantel James IG % 0.4 % Normal 0.0-0.5 [facility] Comment on above: Performed By: #### C BC #### [facility] [address] [place] [address] Dr. Chantel James LYMPH # 2.3 103/ul Normal 1.2-3.8 [facility] Comment on above: Performed By: #### C BC #### [facility] [address] [place] [address] Dr. Chantel James Lymphocytes/100 WBC (Bld) 28.0 % Normal 20.5-60.0 [facility] Comment on above: Performed By: #### C BC #### [facility] [address] [place] [address] Dr. Chantel James MANUAL DIFF REQ NO Normal [facility] Comment on above: Performed By: #### C BC #### [facility] [address] [place] [address] Dr. Chantel James MCH (RBC) [Entitic mass] 29.4 pg Normal 26.7-34.0 [facility] Comment on above: Performed By: #### C BC #### [facility] [address] [place] [address] Dr. Chantel James MCHC (RBC) [Mass/Vol] 32.0 g/dL Normal 29.9-35.2 [facility] Comment on above: Performed By: #### C BC #### [facility] [address] [place] [address] Dr. Chantel James MCV (RBC) [Entitic vol] 91.8 fL Normal 81.0-99.0 [facility] Comment on above: Performed By: #### C BC #### [facility] [address] [place] [address] Dr. Chantel James MONO # 0.6 103/ul Normal 0.3-0.8 [facility] Comment on above: Performed By: #### C BC #### [facility] [address] [place] [address] Dr. Chantel James Monocytes/100 WBC (Bld) 7.7 % Normal 1.7-12.0 [facility] Comment on above: Performed By: #### C BC #### [facility] [address] [place] [address] Dr. Chantel James NEUT # 4.9 103/ul Normal 1.4-6.5 [facility] Comment on above: Performed By: #### C BC #### [facility] [address] [place] [address] Dr. Chantel James Neutrophils/100 WBC (Bld) 60.8 % Normal 43.0-75.0 [facility] Comment on above: Performed By: #### C BC #### [facility] [address] [place] [address] Dr. Chantel James Platelet mean volume (Bld) [Entitic vol] 10.5 fL Normal 9.5-13.5 [facility] Comment on above: Performed By: #### C BC #### [facility] [address] [place] [address] Dr. Chantel James PLT 261 103/ul Normal 150-450 [facility] Comment on above: Performed By: #### C BC #### [facility] [address] [address] [address] Chantel James RBC 4.29 106/ul Normal 4.20-5.40 [facility] Comment on above: Performed By: #### C BC #### [facility] [address] [place] [address] Dr. Chantel James WBC 8.1 103/ul Normal 4.0-11.0 [facility] Comment on above: Performed By: #### C BC #### [facility] [address] [place] [address] Dr. Chantel James GLYCOHEMOGLOBIN A1Con 2021 ADA RECOMMENDATION SEE BELOW Normal [facility] Comment on above: Result Comment: ADA RECOMMENDED LIMIT 4.0 - 6.0 ADA THERAPEUTIC TARGET < 7.0 ACTION SUGGESTED > 7.0 Performed By: #### A 1C #### [facility] [address] [place] [address] Dr. Chantel James Glucose [Mass/Vol] 105 mg/dL Normal [facility] Comment on above: Performed By: #### A 1C #### [facility] [address] [place] [address] Dr. Chantel James HbA1c (Bld) [Mass fraction] 5.3 % Normal 4.5-6.2 [facility] Comment on above: Performed By: #### A 1C #### [facility] [address] [place] [address] Dr. Chantel James IRONon 03-17-2022 Iron [Mass/Vol] 83.0 ug/dL Normal 50.0-170.0 [facility] Comment on above: Performed By: #### V ITAD, IRON #### [facility] [address] [address] [address] Chantel James LIPID PROFILEon 03-17-2022 CHOL-HDL RATIO NORM SEE BELOW Normal [facility] Comment on above: Result Comment: 3.3 - 4.4 LOW RISK 4.4 - 7.1 AVERAGE RISK 7.1 - 11.0 MODERATE RISK >11.0 HIGH RISK Performed By: #### L IPID, TSH, CMP #### [facility] [address] [address] [address] Chantel James Cholesterol [Mass/Vol] 250 mg/dL Critically high <=200 [facility] Comment on above: Performed By: #### L IPID, TSH, CMP #### [facility] [address] [address] [address] Chantel James Cholesterol in HDL [Mass/Vol] 49 mg/dL Normal 40-60 [facility] Comment on above: Performed By: #### L IPID, TSH, CMP #### [facility] [address] [address] [address] Chantel James Cholesterol in LDL [Mass/Vol] 173.8 mg/dL Normal [facility] Comment on above: Performed By: #### L IPID, TSH, CMP #### [facility] [address] [address] [address] Chantel James Cholesterol.total/Cho lesterol in HDL [Mass ratio] 5.1 {ratio} Normal [facility] Comment on above: Performed By: #### L IPID, TSH, CMP #### [facility] [address] [address] [address] Chantel James HDL NORMAL > or = 60 mg/dl - LOW CARDIOVASCULAR RISK <40 mg/dl - HIGH CARDIOVASCULAR RISK Normal [facility] Comment on above: Performed By: #### L IPID, TSH, CMP #### [facility] [address] [place] [address] Dr. Chantel James LDL CALC NORMAL SEE BELOW Normal [facility] Comment on above: Result Comment: <100 mg/dl OPTIMAL 100 - 129 mg/dl NEAR OR ABOVE OPTIMAL 130 - 159 mg/dl BORDERLINE HIGH 160 - 189 mg/dl HIGH >190 mg/dl VERY HIGH Performed By: #### L IPID, TSH, CMP #### [facility] [address] [place] [address] Dr. Chantel James Triglyceride [Mass/Vol] 136 mg/dL Normal <=150 [facility] Comment on above: Performed By: #### L IPID, TSH, CMP #### [facility] [address] [place] [address] Dr. Chantel James VLDL CALC 27.2 mg/dL Normal [facility] Comment on above: Performed By: #### L IPID, TSH, CMP #### [facility] [address] [place] [address] Dr. Chantel James PROF 14(COMP METB)on 022 Albumin [Mass/Vol] 4.0 g/dL Normal 3.4-5.0 [facility] Comment on above: Performed By: #### L IPID, TSH, CMP #### [facility] [address] [place] [address] Dr. Chantel James Albumin/Globulin [Mass ratio] 1.1 {ratio} Normal [facility] Comment on above: Performed By: #### L IPID, TSH, CMP #### [facility] [address] [place] [address] Dr. Chantel James ALP [Catalytic activity/Vol] 75 U/L Normal 46-116 [facility] Comment on above: Performed By: #### L IPID, TSH, CMP #### [facility] [address] [place] [address] Dr. Chantel James ALT [Catalytic activity/Vol] 26 U/L Normal 14-59 [facility] Comment on above: Performed By: #### L IPID, TSH, CMP #### [facility] [address] [place] [address] Dr. Chantel James Anion gap [Moles/Vol] 13.3 mmol/L Normal [facility] Comment on above: Performed By: #### L IPID, TSH, CMP #### [facility] [address] [place] [address] Dr. Chantel James AST [Catalytic activity/Vol] 25 U/L Normal 15-37 [facility] Comment on above: Performed By: #### L IPID, TSH, CMP #### [facility] [address] [address] [address] Chantel James Bilirubin [Mass/Vol] 0.5 mg/dL Normal 0.2-1.0 [facility] Comment on above: Performed By: #### L IPID, TSH, CMP #### [facility] [address] [place] [address] Dr. Chantel James Calcium [Mass/Vol] 9.2 mg/dL Normal 8.5-10.1 [facility] Comment on above: Performed By: #### L IPID, TSH, CMP #### [facility] [address] [place] [address] Dr. Chantel James Chloride [Moles/Vol] 104 mmol/L Normal 98-107 [facility] Comment on above: Performed By: #### L IPID, TSH, CMP #### [facility] [address] [place] [address] Dr. Chantel James CO2 [Moles/Vol] 28.4 mmol/L Normal 21.0-32.0 [facility] Comment on above: Performed By: #### L IPID, TSH, CMP #### [facility] [address] [place] [address] Dr. Chantel James Creatinine [Mass/Vol] 1.23 mg/dL Critically high 0.55-1.02 [facility] Comment on above: Performed By: #### L IPID, TSH, CMP #### [facility] [address] [place] [address] Dr. Chantel James EGFR-AF TOGOLESE 53 mL/min/1.73m2 Critically low >=60 [facility] Comment on above: Performed By: #### L IPID, TSH, CMP #### [facility] [address] [place] [address] Dr. Chantel James EGFR-NON AF TOGOLESE 43 mL/min/1.73m2 Critically low >=60 [facility] Comment on above: Performed By: #### L IPID, TSH, CMP #### [facility] [address] [address] [address] Chantel James Globulin (S) [Mass/Vol] 3.8 g/dL Normal [facility] Comment on above: Performed By: #### L IPID, TSH, CMP #### [facility] [address] [address] [address] Chantel James Glucose [Mass/Vol] 99 mg/dL Normal 74-106 [facility] Comment on above: Performed By: #### L IPID, TSH, CMP #### [facility] [address] [address] [address] Chantel James Potassium [Moles/Vol] 4.7 mmol/L Normal 3.5-5.1 [facility] Comment on above: Performed By: #### L IPID, TSH, CMP #### [facility] [address] [place] [address] Dr. Chantel James Protein [Mass/Vol] 7.8 g/dL Normal 6.4-8.2 [facility] Comment on above: Performed By: #### L IPID, TSH, CMP #### [facility] [address] [place] [address] Dr. Chantel James Sodium [Moles/Vol] 141 mmol/L Normal 136-145 [facility] Comment on above: Performed By: #### L IPID, TSH, CMP #### [facility] [address] [place] [address] Dr. Chantel James Urea nitrogen [Mass/Vol] 17.0 mg/dL Normal 7.0-18.0 [facility] Comment on above: Performed By: #### L IPID, TSH, CMP #### [facility] [address] [place] [address] Dr. Chantel James Urea nitrogen/Creatinine [Mass ratio] 13.8 mg/mg Normal [facility] Comment on above: Performed By: #### L IPID, TSH, CMP #### [facility] [address] [place] [address] Dr. Chantel James TSHon 03-17-2022 TSH 1.674 uIU/mL Normal 0.358-3.740 [facility] Comment on above: Performed By: #### L IPID, TSH, CMP #### [facility] [address] [place], [place] [address] Dr. Chantel James VITAMIN D 25 OHon 03-17-2022 VIT D 25-OH 29.9 ng/mL Normal [facility] Comment on above: Performed By: #### V ITAD, IRON #### [facility] [address] [place], [place] [address] Dr. Chantel James VIT D RANGES SEE BELOW Normal [facility] Comment on above: Result Comment: <20 ng/mL Vit D deficient 20 - <30 ng/mL Vit D insufficient 30 - 100 ng/mL Vit D sufficient >100 ng/mL Potential Toxicity Performed By: #### V ITAD, IRON #### [facility] [address] [place], [place] [address] Dr. Chantel James Consent for COVID Vaccineon 12-06-2020 SARS-CoV-2 (COVID-19) RNA GRAYSON+probe Ql (Unsp spec) [id number] 5#1.00CD:127 Normal [facility] Consent for COVID Vaccineon 11-01-2020 SARS-CoV-2 (COVID-19) RNA GRAYSON+probe Ql (Unsp spec) [id number] 4#1.00CD:127 Normal [facility] Consent for Treatmenton Consent for Treatment [id number] 7#1.00CD:127 Normal [facility] Coding Summary.on 10-31-2020 Coding Summary. CODING DATE: 10/31/2020 FINAL [facility] STATUS: PAYOR: Medicare APC DESCRIPTION [...] CphT Date Saved: 10/31/2020 01:42 pm Normal [facility] Encounters Encounter Date Encounter Type Care Provider Facility Start: 09-18-2022 End: 09-19-[address] JASS UNDERWOOD Facility:[facility] Start: 07-05-2022 End: 07-05-2022 ambulatory Lydia Thompson Facility:[facility] Start: 07-05-2022 End: 07-05-2022 ambulatory [facility] Lydia Thompson Work Phone: [facility] Work Phone: Start: 07-05-2022 End: 07-05-2022 Departed Referred [facility] Lydia Thompson Work Phone: [facility] [place] Start: 03-17-2022 End: 03-18-[address] JASS UNDERWOOD Facility:[facility] Start: 01-17-[address] JASS UNDERWOOD Facility :[facility] Plan of Treatment Date Care Activity Detail Author Bacteria identified in Urine by Culture [facility] Payers Date Payer Category Payer Medicare [id number] 1961 Self-pay 1961 Unknown [id number] 1955 Unknown [id number] [id number] 1955 Unknown [id number] .16.84 [id number] 1955 Unknown [id number] .16.84 [id number] Unknown [id number] Social History Date Type Detail [facility] Work Phone: Start: 1955 Sex Assigned At Female F [facility] [place] [facility] Evaluation note Note Date & [...] section and content) DATE CREATED AUTHOR 02/27/2021 [employer] [facility] DATE CREATED AUTHOR AUTHOR'S ORGANIZ ATION 07/09/2022 [facility] DATE CREATED AUTHOR AUTHOR'S ORGANIZ ATION 09/25/2022 [facility] Care Teams (unrecognized sec tion and content) [...] BE BASED ON THE PRIMARY CLINICAL RECORDS. [facility] [facility]. provides no warranty or guarantee of the accuracy or completeness of information in this document.
== END 2025-01-02 09:53 | disposition home or self-care (01) ==
LOC: MAMMO 09:52
PROVIDERS: PCP Family Medicine; Visit Provider Family Medicine
DX: Z12.31 Encounter for screening mammogram for malignant neoplasm of breast (principal); Z00.00 Encounter for general adult medical examination without abnormal findings
CPT/HCPCS: 77063; 77067

== ENCOUNTER 2025-06-22 06:54 | Outpatient (OUT) | payer MEDICARE, BC, SELFPAY ==
--- OUTSIDE RECORDS SUMMARY | 2025-06-21 05:00 | XMS_ITS ---
Author Organization The [facility] in [place] Address [address] [place] [address] Care Team Providers Care Office Agent Name Role Phone Shannon Michael Primary Care Provider [phone] Allergies No Known Allergies REASON FOR VISIT medicare wellness Medications Medication SIG (Take, Route, Fr equency, Duration) Notes Start Date End Date Status Lactulose 10 GM/15ML 30ml Oral QID-as ne eded for constipation; Duration: 90 days Active Simvastatin 20 MG TAKE ONE TABLET BY M OUT ONCE DAILY Oral; Duration: 90 Days Ac tive Social History Tobacco Use: Social History Observation Description Date Details (start date - stop date) Former Smoker 09/28/1990 - 09/28/1990 Tobacco Use/Smoking Question Answer Notes Patient is a former smoker When did you start smoking? 09/28/1990 When did you stop smoking? 09/28/1990 AUDIT-C (Standard) Question Answer Notes Did you have a drink containing alcohol in the p ast year? No Points 0 Interpretation Negative Vital Signs Weight 114 lbs 06/21/2025 Height 61 in 06/21/2025 Blood pressure systolic 110 mm Hg 06/21/20 25 Blood pressure diastolic 62 mm Hg 025 BMI 21.54 kg/m2 06/21/2025 Encounters Encounter Location Date Provider Diagnosis [facility] Medicine [address] [facility] [place] [address] 06/21/2025 Michael Ortega Encounter for Medica re annual wellness exam Z00.00 ; Vitamin D deficiency E55.9 ; Hyperthyroidism E05.90 and Cervical arthritis M46.92 Assessments Encounter Date Diagnosis (ICD Code) Assessment Notes Treatment Notes Treatment Clinical Notes Section Notes 06/21/2025 Encounter for Medicare annual wellness exam (ICD-10 - Z00.00) patient presents to the office for a subsequent medicare wellness appointment, completed was a anxiety screening, safety screening and depression screening, all were completed without concerns. A slums memory test was completed and the patient scored a 28/30. patient is up to date on her colonoscopy and immunizations, dexa scan is 3 years old, labs were ordered. a total of 15 minutes was spent with the patient 06/21/2025 Vitamin D deficiency (ICD-10 - E55.9) patient presents to the office for a subsequent medicare wellness appointment, completed was a anxiety screening, safety screening and depression screening, all were completed without concerns. A slums memory test was completed and the patient scored a 28/30. patient is up to date on her colonoscopy and immunizations, dexa scan is 3 years old, labs were ordered. a total of 15 minutes was spent with the patient 06/21/2025 Hyperthyroidism (ICD-10 - E05.90) patient presents to the office for a subsequent medicare wellness appointment, completed was a anxiety screening, safety screening and depression screening, all were completed without concerns. A slums memory test was completed and the patient scored a 28/30. patient is up to date on her colonoscopy and immunizations, dexa scan is 3 years old, labs were ordered. a total of 15 minutes was spent with the patient 06/21/2025 Cervical arthritis (ICD-10 - M46.92) patient presents to the office for a subsequent medicare wellness appointment, completed was a anxiety screening, safety screening and depression screening, all were completed without concerns. A slums memory test was completed and the patient scored a 28/30. patient is up to date on her colonoscopy and immunizations, dexa scan is 3 years old, labs were ordered. a total of 15 minutes was spent with the patient Plan Of Treatment Pending Test Test Name Order Date COMPREHENSIVE METABOLIC PROFILE WITH GFR 06/21/2025 OCCULT BLOOD, FECAL, IMMUNOASSAY 025 CBC W/AUTO DIFF 06/21/2025 GLYCOHEMOGLOBIN A1C 06/21/2025 THYROID PANEL (T4/TSH/FREE T3) Vitamin D 06/21/2025 Lipid Panel 06/21/2025 Progress Notes * Natali ESCOBEDOOB:1955 (70 yo F)Acc No.[id number]:06/21/2025 UNLOCKED PROGRESS NOTE Progress Note Patient: Natali HERRING Provider: Polly Ortega ([facility])MD :1955 A ge:70 Y S ex:Female Date:06/21/2025 Address:[address] [place] [address] , [place], [id number] Check In:08:50 AM ESTCheck O ut:09:53 AM EST Subjective: * Chief Complaints: * 1 . Medicare wellness. * HPI: Riky parekh Annual Wellness Visit: Type of Visit: S nathaliaoleg Annual Wellness Visit (SAWV).? Visual Acuity: N /A. Other Providers of Care: C are Team reviewed with patient: Damaris sellers, and updates made in [place] of Care Physical Activity: D o you exercise regularly? Y es T ype of exercise: _ __ F requency: _ __ Nutrition/Diet: O n a typical day, how many servings of fruits and vegetables do you consume? 0 I n a typical week, how many servings of fried or high fat (such as cheese, fatty meat) do you consume? 0 I n a typical week, how many servings of high fiber or whole grain foods do you consume? 0 Seat Belt: D o you always use your seat belt in your car??Yes A re you having difficulties driving your car??No C an you get to places out of walking distance without help? Y es Dental: H ow would you describe the condition of your mouth and teeth, including any false teeth or dentures? E xcellent Medication List Follow-Up: D uring the past four weeks, how much bodily pain do you have? N o pain D o you have a current opioid prescription??No Self Assessment of Health: H ow would you rate your overall health the past four weeks? E xcellent H ow confident are you that you can control and manage most of your health problems? V myke confident H ow have things been going for you during the past four weeks? V myke well; could hardly be better D uring the past four weeks, was someone available to help you if you needed and wanted help? Y es, as much as I wanted (Example: if you felt nervous, lonely, or blue; got sick and had to stay in bed; needed someone to talk to; help with daily chores; or needed help just taking care of yourself) D o you have any sexual problems? N o D o you have any troubles eating well? N o D o you have any problems with tiredness or fatigue? N o H ave you noticed any hearing difficulties??No Sun Exposure: D o you protect yourself from over exposure to the sun when outdoors? Y es Mental Wellness: D uring the past four weeks, how much have you been bothered by emotional problems such as feeling anxious, depressed, irritable, sad, or downhearted and blue? N ot at all D uring the past four weeks, has your physical and emotional health limited your social activities with family, friends, neighbors, or groups??Not at all Functional Ability and Safety Screening: D o you need assistance with any of the following? Select all that apply. N one D oes your home have rugs in the hallway, lack grab bars in the bathroom, lack handrails on the stairs or have poor lighting? N o D o you feel unsteady and/or dizzy when standing or walking? N o D o you have smoke detectors in your home and routinely change the batteries? Y es D o you have a fire extinguisher and know how to use it properly? Y es D o you have any problems with your living situation, food, transportation, utilities, or safety? N o Cognitive Screening: H ave you experienced any memory issues or problems with thinking? N o H ave your family members, friends, caretakers, or others raised any concerns? N o D o you get confused or easily distracted more than you used to? N o H as your ability to concentrate seem to have declined recently? N o O verall Cognitive Status I ntact End of Life Planning: D o you have a living will? Y es D o you have a Durable Power of Relay Shop Supervisor? Y es W ould you like to discuss this topic today??Yes SDOH A gree to complete Social Determinants of Health questionnaire Y es W ithin the past 12 months, did you worry that your food would run out before you got money to buy more? N o W ithin the past 12 months, did the food you bought just not last and you didn't have money to buy more? N o W ithin the past 12 months, have you ever stayed: outside, in a car, in a a tent, in an overnight care home, or temporarily in someone else's home??No A re you worried about losing your housing??No W ithin the past 12 months, have you been able to get utilities (heat, electricity) when it was really needed? N o W ithin the past 12 months, has a lack of transportation kept you from medical appointments or from doing things needed for daily living? N o D o you feel physically or emotionally unsafe where you currently live? N o W ould you like help with any of these needs that you have identified? 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 * Surgical History: T ubal 1988, left breast biopsy 1999, bilat cataract , cyst removal left arm , colonooscopy 2013, 2016. * Hospitalization/Major Diagno stic Procedure: s ee above . * Family History: F ather: , diagnosed with Unspecified heart disease, Chronic kidney disease, unspecified, Atrial fibrillation, unspecified type. M other: , alzheimers, macular deg, high cholesterol, , glaucoma. B rother(s): alive, macular degeneration, diagnosed with Diabetes mellitus without mention of complication, type II or unspecified type, not stated as uncontrolled. S ister(s): alive, Sjoren's syndrome, Raynauds, diagnosed with Other malignant neoplasm of unspecified site. S on(s): alive, Cerebral palsy. D elizaer(s): alive, diagnosed with Diabetes mellitus without mention of complication, type II or unspecified type, not stated as uncontrolled. 1 brother(s) , 2 sister(s) . 1 son(s) , 1 daughter(s) . . 1 sister from liver ca. * Social History: T obacco Use: T obacco Use/Smoking P atient is a f ormer smoker W hen did you start smoking? 0 09/28/1990 W hen did you stop smoking? 0 09/28/1990 D rug/Alcohol: A WALTER-C (Standard) D id you have a drink containing alcohol in the past year? N o P oints 0 I nterpretation N egative * Medications: T aking Lactulose 10 GM/15ML Solution 30ml Oral QID-as needed for constipation , Taking Simvastatin 20 MG Tablet TAKE ONE TABLET BY MOUTH ONCE DAILY Oral , Medication List reviewed and reconciled with the patient * Allergies: N .K.D.A. Objective: * Vitals: W t:114lbs, Ht: 61 in, BP:110/62mm Hg, BMI:21.54Index. Assessment: * Assessment: 1. E ncounter for Medicare annual wellness exam - Z00.00 (Primary) 2 . V itamin D deficiency - E55.9 3 . H yperthyroidism - E05.90 4 . C ervical arthritis - M46.92 patient presents to the [facility] for a subsequent medicare wellness appointment, completed was a anxiety screening, safety screening and depression screening, all were completed without concerns. A slums memory test was completed and the patient scored a 28/30. patient is up to date on her colonoscopy and immunizations, dexa scan is 3 years old, labs were ordered. a total of 15 minutes was spent with the patient Plan: * Treatment: 2. V itamin D deficiency L AB: COMPREHENSIVE METABOLIC PROFILE WITH GFR L AB: OCCULT BLOOD, FECAL, IMMUNOASSAY L AB: CBC W/AUTO DIFF L AB: GLYCOHEMOGLOBIN A1C L AB: THYROID PANEL (T4/TSH/FREE T3) L AB: Vitamin D L AB: Lipid Panel 3. H yperthyroidism L AB: COMPREHENSIVE METABOLIC PROFILE WITH GFR L AB: OCCULT BLOOD, FECAL, IMMUNOASSAY L AB: CBC W/AUTO DIFF L AB: GLYCOHEMOGLOBIN A1C L AB: THYROID PANEL (T4/TSH/FREE T3) L AB: Vitamin D L AB: Lipid Panel 4. C ervical arthritis L AB: COMPREHENSIVE METABOLIC PROFILE WITH GFR L AB: OCCULT BLOOD, FECAL, IMMUNOASSAY L AB: CBC W/AUTO DIFF L AB: GLYCOHEMOGLOBIN A1C L AB: THYROID PANEL (T4/TSH/FREE T3) L AB: Vitamin D L AB: Lipid Panel * Procedure Codes: G 0439 ANNUAL WELLNESS, SUBSEQ * Preventive Medicine: Screenings/Counseling: F ALL RISK SCREENING Fall Risk Assessment: N o falls in the past year Are you afraid of falling? N o * * Electronic signature of Michael Ortega MD, [id number] on 06/22/2025 at 06:57 AM EDT Sign off status: Pending Visit Status: Fadia ANN (Check Out) * Provider: Polly Ortega ([facility])MD Date: 0 06/21/2025 Generated for Juanitoi ng/Faraoulg/eTransmitting on: 0 06/22/2025 06:57 AM EDT History and Physical Notes * HPI (History of Present Illness) Category Sub-Category Detail Notes Category Not es Medicare Annual Wellness Visit Type of Visit: Subsequent Annual Wellness Visit (SAWV) Cognitive Screening: Have you experience d any memory issues or problems with thinking?: No Have your family members, fr iends, caretakers, or others raised any concerns?: No Do you get confused or easily distracted more than you used to?: No Has your ability to concentrate seem to have declined recently?: No Overall Cognitive Status: Intact Self Assessment of Health: How would you rate your overall health the past four weeks?: Excellent How confident are you that y ou can control and manage most of your health problems?: Very confident How have things been going f or you during the past four weeks?: Very well; could hardly be better During the past four weeks, was someone available to help you if you needed and wanted help?: Yes, as much as I wanted (Example: if you felt nervous, lonely, o r blue; got sick and had to stay in bed; needed someone to talk to; help with daily chores; or needed help just taking care of yourself) Do you have any sexual problems?: No Do you have any troubles eating well?: N o Do you have any problems wit h tiredness or fatigue?: No Have you noticed any hearing difficulties?: No Physical Activity: Do you exercise regularly?: Y es Type of exercise:: ___ Frequency:: ___ Functional Ability and Safety Screening: Do you need assistance with any of the following? Select all that apply.: None Does your home have rugs in the hallway, lack grab bars in the bathroom, lack handrails on the stairs or have poor lighting?: No Do you feel unsteady and/or dizzy when s tanding or walking?: No Do you have smoke detectors in your home and routinely change the batteries?: Yes Do you have a fire extinguisher and know how to use it properly?: Yes Do you have any problems wit h your living situation, food, transportation, utilities, or safety?: No Visual Acuity: N/A Nutrition/Diet: On a typical day, ho w many servings of fruits and vegetables do you consume?: 0 In a typical week, how many servings of fried or high fat (such as cheese, fatty meat) do you consume?: 0 In a typical week, how many servings of high fiber or whole grain foods do you consume?: 0 Seat Belt: Do you always use your seat belt in your car?: Yes Are you having difficulties driving your car?: No Can you get to places out of walking dis tance without help?: Yes Dental: How would you descri be the condition of your mouth and teeth, including any false teeth or dentures?: Excellent Medication List Follow-Up: During the st four weeks, how much bodily pain do you have?: No pain Do you have a current opioid prescriptio n?: No Mental Wellness: During the past four weeks, how much have you been bothered by emotional problems such as feeling anxious, depressed, irritable, sad, or downhearted and blue?: Not at all During the past four weeks, has your physical and emotional health limited your social activities with family, friends, neighbors, or groups?: Not at all Sun Exposure: Do you protect yours elf from over exposure to the sun when outdoors?: Yes End of Life Planning: Do you have a living will? : Yes Do you have a Durable Power of Relay Shop Supervisor? : Yes Would you like to discuss this topic tod ay?: Yes Other Providers of Care: Care Team karen solano with patient:: Yes, and updates made in [place] of Care [facility] Agree to complete So [facility] Determinants of Health questionnaire: Yes Within the past 12 months, did you worry that your food would run out before you got money to buy more?: No Within the past 12 months, did the food you bought just not last and you didn't have money to buy more?: No Within the past 12 months, have you ever stayed: outside, in a car, in a a tent, in an overnight care home, or temporarily in someone else's home?: No Are you worried about losing your housing?: No Within the past 12 months, have you been able to get utilities (heat, electricity) when it was really needed?: No Within the past 12 months, has a lack of transportation kept you from medical appointments or from doing things needed for daily living?: No Do you feel physically or emotionally unsafe where you currently live?: No Would you like help with any of these needs that you have identified?: No
--- OUTSIDE RECORDS SUMMARY | 2025-06-21 05:25 | XMS_ITS ---
Author Organization The [facility] in [place] Address [address] [place] [address] Care Team Providers Care Rectifier Operator Name Role Phone Michael Ortega Primary Care Provider REASON FOR VISIT medicare wellness Encounters Encounter Location Date Provider Diagnosis [facility] [address] [place] [facility] [place] [address] 06/21/2025 Michael Ortega Senile osteopenia M85.80 Assessments Encounter Date Diagnosis (ICD Code) Assessment Notes Treatment Notes Treatment Clinical Notes Section Notes 06/21/2025 Senile osteopenia (ICD-10 - M85.80) Plan Of Treatment Pending Test Test Name Order Date XR DEXA BONE DENSITY 06/21/2025 Progress Notes * Natali ESCOBEDO KDOB:1955 (70 yo F)Acc No.[id number]:06/21/2025 Patient: Elif XIAO Natali Cisneros :1955 A ge:70 Y S ex:Female Address:[address] [place] [address] [place], [address] Subjective: * Chief Complaints: * M edicare wellness * Medical History: * Surgical History: * Hospitalization/Major Diagno stic Procedure: * Medications: Objective: * Vitals: * Physical Examination: Assessment: * Assessment: 1. S enile osteopenia - M85.80 (Primary) Plan: * Treatment: * Procedure Codes: * true * Date: Generated for Printi ng/Faxing/eTransmitting on: 0 06/22/2025 06:58 AM EDT
--- OUTSIDE RECORDS SUMMARY | 2025-06-22 06:58 | XMS_ITS | Clinical Summary ---
Author Organization [facility] Address [address] [facility] [place] [address] Care Team Providers Care Maintenance Planning Clerk Name Role Phone Unavailable Primary Care Provider Unavailabl e Source Comments The following information is NOT included in Care Everywhere downloads:Psychiatric notes, ECG results, Cardiac Rehab notes, Pulmonary Function notes, data from [facility] [employer] (includes but not limited toPregnancy data,audiograms, eye exams, pre-surgical evaluation notes, well-child exam data).[facility] Allergies No known active allergies Medications No known medications Social History Tobacco Use Types Packs/Day Years Used Date Smoking Tobacco: Never Assessed Comments Unknown Sex and Gender Information Value Date Recorded Sex Assigned at Not on file Legal Sex Female 10:09 AM EDT Gender Identity Not on file Sexual Orientation Not on file Last Filed Vital Signs Vital Sign Reading Time Taken Comments Blood Pressure 144/66 01/15/2016 3:01 PM EDT Pulse 78 01/15/2016 3:01 PM EDT Temperature 36.7 C (98 F) 01/15/2016 3:01 PM EDT Respiratory Rate 17 01/15/2016 3:01 PM EDT Oxygen Saturation 98% 01/15/2016 3:01 PM EDT Inhaled Oxygen Concentration - - Weight - - Height - - Body Mass Index - - Plan of Treatment Health Maintenance Due Date Last Done Comments Colonoscopy 1955 Hepatitis C Antibody 1971 Tdap Booster 1971 Hepatitis A (HAV) Vaccine (optional start 19+ years) 0 1972 Mammography 1993 CRC Screening 1998 Cholesterol 1998 Cologuard (Stool DNA) 1998 FIT 1998 Pneumococcal Vaccine(s) (50+ yrs) (1 of 1 - PCV) 06/14 Shingles (RZV) Vaccine (1 of 2) 2003 Hepatitis B (HBV) Vaccine (optional start 60+ years) 0 2013 Bone Densitometry 2018 COVID-19 Vaccine ( season) 2025 Influenza Vaccine (#1) 2025 RSV vaccine (adult) (1 - 1-dose 75+ series) 2028 [place] [address] [facility]
--- OUTSIDE RECORDS SUMMARY | 2025-06-22 06:58 | XMS_ITS | Patient Health Record ---
Author Organization [facility] in [place] Address [address] [place] [address] Care Team Providers Care Procedures Analyst Name Role Phone Michael Ortega Primary Care Provider Allergies No Known Allergies Results Component Value Reference Range Notes MM tomosynthesis screening B I Reviewed date:01/02/2025 06:08:36 PM Interpretation: Performing Lab: Notes/Report: Source Facility: [place] [address] Mammography Report Signed Patient: NATALI ESCOBEDO MR#: [id number] : 1955 Acct:[id number] Age/Sex: 69 / F ADM Date: 01/02/25 Loc: MAMMO Attending Dr: Ivan Ortega M.D. Ordering Physician: Ivan Ortega M.D. Results: Date of Service: 01/02/25 Follow Up: Procedure(s): MM tomosynthesis screening BI Accession Number(s): [id number] cc: Ivan Ortega M.D. Patient Name: NATALI ESCOBEDO MR#: [id number] : 1955 Exam Date: 01/02/2025 Ordering Doctor: DR Ivan Ortega . RADIOLOGY REPORT PROCEDURE: MM TOMOSYNTHESIS SCREENING BI COMPARISON: MM TOMOSYNTHESIS SCREENING BI, 12/23/2023. MG MAMM SCREEN 3D BEATRICE CAD, 09/18/2022. MG MAMM SCREEN 3D BEATRICE CAD, 02/27/2021. MG MAMM SCREEN BEATRICE W CAD, 01/12/2018. INDICATIONS: Screening Calculator Name NCI Breast Cancer Risk Assessment Tool 5 Year Breast Cancer Risk 2.40% Lifetime Breast Cancer Risk 6.60% Personal Breast Cancer No Personal Ovarian Cancer No Treatments None Family Cancers None LOCATION: [facility] BREAST COMPOSITION: The breasts are heterogeneously dense,which may obscure small masses. FINDINGS: DIAGNOSTIC CATEGORY 1--NEGATIVE. LEFT BREAST: No significant suspicious finding. RIGHT BREAST: No significant suspicious finding. RECOMMENDATIONS: ROUTINE MAMMOGRAM AND CLINICAL EVALUATION IN 12 MONTHS. PLEASE NOTE: A NORMAL MAMMOGRAM DOES NOT EXCLUDE THE POSSIBILITY OF BREAST CANCER. A CLINICALLY SUSPICIOUS PALPABLE LUMP SHOULD BE BIOPSIED. Dictated by: Hasmukh Elder DO on 01/02/2025 at 15:53 Approved by: Hasmukh Elder DO on 01/02/2025 at 15:55 Dictated By: Hasmukh Elder M.D. Signed By: 01/02/25 1556 DD/ 1556 TD/TT: Dish Person: Reason For Referral No Information Medications Medication SIG (Take, Route, Fr equency, Duration) Notes Start Date End Date Status Lactulose 10 GM/15ML 30ml Oral QID-as ne eded for constipation; Duration: 90 days Active Simvastatin 20 MG TAKE ONE TABLET BY M OUT ONCE DAILY Oral; Duration: 90 Days Ac tive Immunizations Vaccine Route Administration Date Status Comme nts Flu, Fluad (14068) 65 yrs + High Dose Seasonal (3976-9912) Unknown 07/11/2022 Administered Flu, Fluad (41701) 65 yrs an d older, single-dose syringe () Unknown 08/13/2018 Administered Flu, Fluad (89944) 65 yrs an d older, single-dose syringe () Unknown 08/01/2019 Administered Flu, Fluad (70770) 65 yrs an d older, single-dose syringe () Unknown 07/04/2021 Administered Flu, Fluad (91051) 65 yrs an d older, single-dose syringe () Unknown 06/29/2024 Administered Flu, Fluzone (14518) 6-35mo, multi-dose vial () Unknown 08/07/2014 Administered Flu, Fluzone (31930) 6-35mo, multi-dose vial (2570-5831) Unknown 07/18/2015 Administered Flu, Fluzone (90512) 6-35mo, multi-dose vial (9698-0367) Unknown 07/11/2016 Administered Flu, Fluzone (61750) 6-35mo, multi-dose vial (7038-2799) Unknown 08/03/2017 Administered Flu, Unspecified Unknown 07/29/2013 Administered Pneumococcal (Pneumovax 23) Unknown 08/21/2020 Administ ered Pneumococcal (Prevnar 13) Unknown 08/01/2019 Administer ed SARS-COV-2 (COVID 19 Moderna - Booster 0.25mL) Unknown 10/31/2020 Administered SARS-COV-2 (COVID 19 Moderna - Booster 0.25mL) Unknown 11/28/2020 Administered SARS-COV-2 (COVID 19 Moderna - Booster 0.25mL) Unknown 08/26/2021 Administered ZOSTER (SHINGLES) VACCINE (HZV) Unknown 09/26/2019 Admi nistered ZOSTER (SHINGLES) VACCINE (HZV) Unknown 12/09/2019 Admi nistered Social History Tobacco Use: Social History Observation Description Date Details (start date - stop date) Former Smoker 09/28/1990 - 09/28/1990 Tobacco Use/Smoking Question Answer Notes Patient is a former smoker When did you start smoking? 09/28/1990 When did you stop smoking? 09/28/1990 Alcohol Screen (Audit-C) Question Answer Notes Did you have a drink containing alcohol in the p ast year? No Points 0 Interpretation Negative AUDIT-C (Standard) Question Answer Notes Did you have a drink containing alcohol in the p ast year? No Points 0 Interpretation Negative Problems Problem Type SNOMED Code ICD Code Onset Dates Problem Status W/U Status Risk Notes Problem Thyrotoxicosis (19697206) Thyrotoxicosis, unspecified without thyrotoxic crisis or storm (E05.90) Active confirmed Problem Vitamin D deficiency (24916994) Vitamin D deficiency (E55.9) Active confirmed Problem Constipation (01641156) Constipation (K59.00) Active confirmed Problem Well adult (731067738) Well adult (Z00.00) Active confirmed Problem Hyperthyroidism (56167728) Hyperthyroidism (E05.90) Active confirmed Problem Cervical arthritis (284858379) Cervical arthritis (M46.92) Active confirmed Vital Signs Blood pressure diastolic 62 mm Hg 06/21/2025 Height 61 in 06/21/2025 Blood pressure systolic 110 mm Hg 06/21/2025 Weight 114 lbs 06/21/2025 BMI 21.54 kg/m2 06/21/2025 Encounters Encounter Location Date Provider Diagnosis [facility] [address] [facility] [place] [address] 12/26/2024 Michael Ortega Hyperthyroidism E05. 90 [facility] [address] [place] [address] 01/02/2025 Michael Sharmay [facility] [address] [facility] [place] [address] 06/21/2025 Michael Ortega Senile osteopenia M8 5.[address] [address] 06/21/2025 Michael Ortega Encounter for [employer] annual wellness exam Z00.00 ; Vitamin D deficiency E55.9 ; Hyperthyroidism E05.90 and Cervical arthritis M46.92 [facility] [address] [place] [address] 12/21/2024 Michael Ortega Well adult Z00.00 Assessments Encounter Date Diagnosis (ICD Code) Assessment Notes Treatment Notes Treatment Clinical Notes Section Notes 12/21/2024 Well adult (ICD-10 - Z00.00) 06/21/2025 Encounter for Medicare annual wellness exam [...] 15 minutes was spent with the patient 12/26/2024 Hyperthyroidism (ICD-10 - E05.90) 06/21/2025 Senile osteopenia (ICD-10 - M85.80) 06/21/2025 Hyperthyroidism (ICD-10 - E05.90) patient presents [...] Treatment Pending Test Test Name Order Date CMP (COMPLETE METABOLIC PANEL) 4 HEMOGLOBIN A1C (GLYCO) 12/21/2023 LIPID PANEL (CHOL/TRIG/HDL/LDL) 12/21/19 24 CBC WITH DIFF 12/21/2023 VITAMIN D, 25 LEVEL (TOTAL) 12/21/2023 MAMM Mammograms CAD 12/21/2023 MRI Cervical Spine w/o contrast * 2023 COMPREHENSIVE METABOLIC PROFILE WITH GFR 06/21/2025 OCCULT BLOOD, FECAL, IMMUNOASSAY 025 CBC W/AUTO DIFF 06/21/2025 GLYCOHEMOGLOBIN A1C 06/21/2025 XR CSPINE MIN 4 VIEWS 12/04/2023 XR DEXA BONE DENSITY 06/21/2025 THYROID PANEL (T4/TSH/FREE T3) THYROID PANEL (T4/TSH/FREE T3) 5 MM screening mammo BI 12/21/2024 Vitamin D 06/21/2025 Lipid Panel 06/21/2025 Insurance Providers Payer Name Payer Address Payer Phone Subscriber Number Group Number Insured Name Patient Relationship to Insured Coverage Start Date Coverage End Date [place]IC[place] [address] [place] [address] [phone] [id number] Natali Escobedo Self - patient is the insured [facility] MEDIC[facility] SUPPLEMENT [address] [place] [address] [id number] Natali Escobedo Self - patient is the insured Medical (General) History Medical History History ICD Code Vitamin D deficiency E55.9 Constipation K59.00 Arterial thoracic 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
--- OUTSIDE RECORDS SUMMARY | 2025-06-22 06:59 | XMS_ITS | CCD ---
Author Organization [facility] Care Team Providers Care Tribunal Member Name Role Phone CORINA Thompson Attending Provider [phone] Lydia Thompson Attending Unavailable Lydia Thompson Admitting [...] : DR JASS UNDERWOOD . Admission #: [id number] Family : Order #: [id number] CLICK HERE TO VIEW EXAM RADIOLOGY REPORT [...] Treatments None Family Cancers None LOCATION: [facility] BREAST COMPOSITION: Extremely dense, which lowers the [...] M.D. on 09/18/2022 at 15:45 Normal [facility] Urine Cultureon 07-05-2022 Bacteria identified Cx Nom (U) Reason for Exam Urinary frequency Urine ORGANISM: Escherichia coli (O:ESCCOL) [place] Count >100,000 Aerobic LELAND Charge (NUC86) ----- [...] RESISTANT TO ALL B-LACTAM DRUGS. PERFORMED BY: [place] [address] PATHOLOGIST CONTROL AND RECOVERY COMBAT RESCUE EDI HARVEY M.D. [facility] Comment on above: Performed By: #### C UU #### [facility] [address] [place] [address] INSULINon 03-18-2022 Insulin 3.5 uIU/mL Normal 2.6-24.9 [facility] Comment on above: Performed By: #### I NSULIN #### [facility] [address] [place] [address] Dr. Chantel James CBC AUTO DIFFon 03-17-2022 BASO # 0.0 103/ul Normal 0.0-0.1 [facility] Comment on above: Performed By: #### C BC #### [facility] [address] [place] [address] Dr. Chantel James Basophils/100 WBC (Bld) 0.5 % Normal 0.2-2.0 [facility] Comment on above: Performed By: #### C BC #### [facility] [address] [place] [address] Dr. Chantel James EO # 0.2 103/ul Normal 0.0-0.7 [facility] Comment on above: Performed By: #### C BC #### [facility] [address] [place] [address] Dr. Chantel James Eosinophils/100 WBC (Bld) 2.6 % Normal 0.9-7.0 [facility] Comment on above: Performed By: #### C BC #### [facility] [address] [place] [address] Dr. Chantel James Erythrocyte distribution width (RBC) [Ratio] 14.6 % Normal 11.0-15.0 [facility] Comment on above: Performed By: #### C BC #### [facility] [address] [place] [address] Dr. Chantel James Hematocrit (Bld) [Volume fraction] 39.4 % Normal 36.0-48.0 [facility] Comment on above: Performed By: #### C BC #### [facility] [address] [place] [address] Dr. Chantel James Hemoglobin (Bld) [Mass/Vol] 12.6 g/dL Normal 12.0-16.0 [facility] Comment on above: Performed By: #### C BC #### [facility] [address] [place] [address] Dr. Chantel James IG # 0.03 10e3/ul Normal 0.00-0.03 [facility] Comment on above: Performed By: #### C BC #### [facility] [address] [place] [address] Dr. Chantel James IG % 0.4 % Normal 0.0-0.5 [facility] Comment on above: Performed By: #### C BC #### [facility] [address] [place] [address] Dr. Chantel James LYMPH # 2.3 103/ul Normal 1.2-3.8 [facility] Comment on above: Performed By: #### C BC #### [facility] [address] [place] [address] Dr. Chantel James Lymphocytes/100 WBC (Bld) 28.0 % Normal 20.5-60.0 [facility] Comment on above: Performed By: #### C BC #### [facility] [address] [place] [address] Dr. Chantel James MANUAL DIFF REQ NO Normal [facility] Comment on above: Performed By: #### C BC #### [facility] [address] [place] [address] Dr. Chantel James MCH (RBC) [Entitic mass] 29.4 pg Normal 26.7-34.0 [facility] Comment on above: Performed By: #### C BC #### [facility] [address] [place] [address] Dr. Chantel James MCHC (RBC) [Mass/Vol] 32.0 g/dL Normal 29.9-35.2 [facility] Comment on above: Performed By: #### C BC #### [facility] [address] [place] [address] Dr. Chantel James MCV (RBC) [Entitic vol] 91.8 fL Normal 81.0-99.0 [facility] Comment on above: Performed By: #### C BC #### [facility] [address] [place] [address] Dr. Chantel James MONO # 0.6 103/ul Normal 0.3-0.8 [facility] Comment on above: Performed By: #### C BC #### [facility] [address] [place] [address] Dr. Chantel James Monocytes/100 WBC (Bld) 7.7 % Normal 1.7-12.0 [facility] Comment on above: Performed By: #### C BC #### [facility] [address] [place] [address] Dr. Chantel James NEUT # 4.9 103/ul Normal 1.4-6.5 [facility] Comment on above: Performed By: #### C BC #### [facility] [address] [place] [address] Dr. Chantel James Neutrophils/100 WBC (Bld) 60.8 % Normal 43.0-75.0 [facility] Comment on above: Performed By: #### C BC #### [facility] [address] [place] [address] Dr. Chantel James Platelet mean volume (Bld) [Entitic vol] 10.5 fL Normal 9.5-13.5 [facility] Comment on above: Performed By: #### C BC #### [facility] [address] [place] [address] Dr. Cahntel James PLT 261 103/ul Normal 150-450 [facility] Comment on above: Performed By: #### C BC #### [facility] [address] [address] [address] Chantel James RBC 4.29 106/ul Normal 4.20-5.40 [facility] Comment on above: Performed By: #### C BC #### [facility] [address] [place] [address] Dr. Chantel James WBC 8.1 103/ul Normal 4.0-11.0 [facility] Comment on above: Performed By: #### C BC #### [facility] [address] [place] [address] Dr. Chantel James GLYCOHEMOGLOBIN A1Con 2021 ADA RECOMMENDATION SEE BELOW Normal [facility] Comment on above: Result Comment: ADA RECOMMENDED LIMIT 4.0 - 6.0 ADA THERAPEUTIC TARGET < 7.0 ACTION SUGGESTED > 7.0 Performed By: #### A 1C #### [facility] [address] [place] [address] Dr. Chantel James Glucose [Mass/Vol] 105 mg/dL Normal [facility] Comment on above: Performed By: #### A 1C #### [facility] [address] [place] [address] Dr. Chantel James HbA1c (Bld) [Mass fraction] 5.3 % Normal 4.5-6.2 [facility] Comment on above: Performed By: #### A 1C #### [facility] [address] [place] [address] Dr. Chantel James IRONon 03-17-2022 Iron [Mass/Vol] 83.0 ug/dL Normal 50.0-170.0 [facility] Comment on above: Performed By: #### V ITAD, IRON #### [facility] [address] [address] [address] Chantel James LIPID PROFILEon 03-17-2022 CHOL-HDL RATIO NORM SEE BELOW Normal [facility] Comment on above: Result Comment: 3.3 - 4.4 LOW RISK 4.4 - 7.1 AVERAGE RISK 7.1 - 11.0 MODERATE RISK >11.0 HIGH RISK Performed By: #### L IPID, TSH, CMP #### [facility] [address] [address] [address] Chantel James Cholesterol [Mass/Vol] 250 mg/dL Critically high <=200 [facility] Comment on above: Performed By: #### L IPID, TSH, CMP #### [facility] [address] [address] [address] Chanetl James Cholesterol in HDL [Mass/Vol] 49 mg/dL Normal 40-60 [facility] Comment on above: Performed By: #### L IPID, TSH, CMP #### [facility] [address] [address] [address] Chantel James Cholesterol in LDL [Mass/Vol] 173.8 mg/dL Normal [facility] Comment on above: Performed By: #### L IPID, TSH, CMP #### [facility] [address] [address] [address] Chantel James Cholesterol.total/Cho lesterol in HDL [Mass ratio] 5.1 {ratio} Normal [facility] Comment on above: Performed By: #### L IPID, TSH, CMP #### [facility] [address] [address] [address] Chantel James HDL NORMAL > or = 60 mg/dl - LOW CARDIOVASCULAR RISK <40 mg/dl - HIGH CARDIOVASCULAR RISK Normal [facility] Comment on above: Performed By: #### L IPID, TSH, CMP #### [facility] [address] [place] [address] Dr. Chantel James LDL CALC NORMAL SEE BELOW Normal [facility] Comment on above: Result Comment: <100 mg/dl OPTIMAL 100 - 129 mg/dl NEAR OR ABOVE OPTIMAL 130 - 159 mg/dl BORDERLINE HIGH 160 - 189 mg/dl HIGH >190 mg/dl VERY HIGH Performed By: #### L IPID, TSH, CMP #### [facility] [address] [place] [address] Dr. Chantel James Triglyceride [Mass/Vol] 136 mg/dL Normal <=150 [facility] Comment on above: Performed By: #### L IPID, TSH, CMP #### [facility] [address] [place] [address] Dr. Chantel James VLDL CALC 27.2 mg/dL Normal [facility] Comment on above: Performed By: #### L IPID, TSH, CMP #### [facility] [address] [place] [address] Dr. Chantel James PROF 14(COMP METB)on 022 Albumin [Mass/Vol] 4.0 g/dL Normal 3.4-5.0 [facility] Comment on above: Performed By: #### L IPID, TSH, CMP #### [facility] [address] [place] [address] Dr. Chantel James Albumin/Globulin [Mass ratio] 1.1 {ratio} Normal [facility] Comment on above: Performed By: #### L IPID, TSH, CMP #### [facility] [address] [place] [address] Dr. Chantel James ALP [Catalytic activity/Vol] 75 U/L Normal 46-116 [facility] Comment on above: Performed By: #### L IPID, TSH, CMP #### [facility] [address] [place] [address] Dr. Chantel James ALT [Catalytic activity/Vol] 26 U/L Normal 14-59 [facility] Comment on above: Performed By: #### L IPID, TSH, CMP #### [facility] [address] [place] [address] Dr. Chantel James Anion gap [Moles/Vol] 13.3 mmol/L Normal [facility] Comment on above: Performed By: #### L IPID, TSH, CMP #### [facility] [address] [place] [address] Dr. Chantel James AST [Catalytic activity/Vol] 25 U/L Normal 15-37 [facility] Comment on above: Performed By: #### L IPID, TSH, CMP #### [facility] [address] [address] [address] Chantel James Bilirubin [Mass/Vol] 0.5 mg/dL Normal 0.2-1.0 [facility] Comment on above: Performed By: #### L IPID, TSH, CMP #### [facility] [address] [place] [address] Dr. Chantel James Calcium [Mass/Vol] 9.2 mg/dL Normal 8.5-10.1 [facility] Comment on above: Performed By: #### L IPID, TSH, CMP #### [facility] [address] [place] [address] Dr. Chantel James Chloride [Moles/Vol] 104 mmol/L Normal 98-107 [facility] Comment on above: Performed By: #### L IPID, TSH, CMP #### [facility] [address] [place] [address] Dr. Chantel James CO2 [Moles/Vol] 28.4 mmol/L Normal 21.0-32.0 [facility] Comment on above: Performed By: #### L IPID, TSH, CMP #### [facility] [address] [place] [address] Dr. Chantel James Creatinine [Mass/Vol] 1.23 mg/dL Critically high 0.55-1.02 [facility] Comment on above: Performed By: #### L IPID, TSH, CMP #### [facility] [address] [place] [address] Dr. Chantel James EGFR-AF [place]IZ[place] 53 mL/min/1.73m2 Critically low >=60 [facility] Comment on above: Performed By: #### L IPID, TSH, CMP #### [facility] [address] [place] [address] Dr. Chantel James EGFR-NON AF [place]IZEN [place] 43 mL/min/1.73m2 Critically low >=60 [facility] Comment on above: Performed By: #### L IPID, TSH, CMP #### [facility] [address] [address] [address] Chantel James Globulin (S) [Mass/Vol] 3.8 g/dL Normal [facility] Comment on above: Performed By: #### L IPID, TSH, CMP #### [facility] [address] [address] [address] Chantel James Glucose [Mass/Vol] 99 mg/dL Normal 74-106 [facility] Comment on above: Performed By: #### L IPID, TSH, CMP #### [facility] [address] [address] [address] Chantel James Potassium [Moles/Vol] 4.7 mmol/L Normal 3.5-5.1 [facility] Comment on above: Performed By: #### L IPID, TSH, CMP #### [facility] [address] [place] [address] Dr. Chantel James Protein [Mass/Vol] 7.8 g/dL Normal 6.4-8.2 [facility] Comment on above: Performed By: #### L IPID, TSH, CMP #### [facility] [address] [place] [address] Dr. Chantel James Sodium [Moles/Vol] 141 mmol/L Normal 136-145 [facility] Comment on above: Performed By: #### L IPID, TSH, CMP #### [facility] [address] [place] [address] Dr. Chantel James Urea nitrogen [Mass/Vol] 17.0 mg/dL Normal 7.0-18.0 [facility] Comment on above: Performed By: #### L IPID, TSH, CMP #### [facility] [address] [place] [address] Dr. Chantel James Urea nitrogen/Creatinine [Mass ratio] 13.8 mg/mg Normal [facility] Comment on above: Performed By: #### L IPID, TSH, CMP #### [facility] [address] [place] [address] Dr. Chantel James TSHon 03-17-2022 TSH 1.674 uIU/mL Normal 0.358-3.740 [facility] Comment on above: Performed By: #### L IPID, TSH, CMP #### [facility] [address] [place], [place] [address] Dr. Chantel James VITAMIN D 25 OHon 03-17-2022 VIT D 25-OH 29.9 ng/mL Normal [facility] Comment on above: Performed By: #### V ITAD, IRON #### [facility] [address] [place], [place] [address] Dr. Chantel James VIT D RANGES SEE BELOW Normal [facility] Comment on above: Result Comment: <20 ng/mL Vit D deficient 20 - <30 ng/mL Vit D insufficient 30 - 100 ng/mL Vit D sufficient >100 ng/mL Potential Toxicity Performed By: #### V ITAD, IRON #### [facility] [address] [place], [place] [address] Dr. Chantel James Consent for COVID Vaccineon 12-06-2020 SARS-CoV-2 (COVID-19) RNA GRAYSON+probe Ql (Unsp spec) [id number] 5#1.00CD:127 Normal [facility] Consent for COVID Vaccineon 11-01-2020 SARS-CoV-2 (COVID-19) RNA GRAYSON+probe Ql (Unsp spec) [id number] 4#1.00CD:127 Normal [facility] Consent for Treatmenton Consent for Treatment [id number] 7#1.00CD:127 Normal [facility] Coding Summary.on 10-31-2020 Coding Summary. CODING DATE: 10/31/[address] [facility] STATUS: PAYOR: Medicare APC DESCRIPTION [id number] [...] CphT Date Saved: 10/31/2020 01:42 pm Normal [facility] Encounters Encounter Date Encounter Type Care Provider Facility Start: 09-18-2022 End: 09-19-[address] JASS UNDERWOOD Facility:[facility] Start: 07-05-2022 End: 07-05-2022 ambulatory Lydia Thompson Facility:[facility] Start: 07-05-2022 End: 07-05-2022 ambulatory THERAPY MANAGER-C Lydia Thompson Work Phone: [facility] Work Phone: Start: 07-05-2022 End: 07-05-2022 Departed Referred THERAPY MANAGER-C Lydia Thompson Work Phone: [facility] [place] Start: 03-17-2022 End: 03-18-[address] JASS UNDERWOOD Facility:[facility] Start: 01-17-[address] JASS UNDERWOOD Facility :[facility] Plan of Treatment Date Care Activity Detail Author Bacteria identified in Urine by Culture [facility] Payers Date Payer Category Payer Medicare [id number] 1961 Self-pay 1961 Unknown [id number] 1955 Unknown [id number] .16.84 [id number] 1955 Unknown [id number] .16.84 [id number] 1955 Unknown [id number] .16.84 [id number] Unknown [id number] Social History Date Type Detail [facility] Work Phone: Start: 1955 Sex Assigned At Female F [facility] Evaluation note Note Date & Type Note Facility Evaluation note No assessment information availa luciano [facility] Work Phone: Summary Purpose Family History No Family History Records FoundNo Family History Records FoundNo Family History Records Found Advance Directives No Advanced Directives Records FoundNo Advanced Directives Records FoundNo Advanced Directives Records Found Chief Complaint and Reason for Visit Chief Complaint Urinary frequency Additional Source Comments INFORMATION SOURCE (unrecogn ized section and content) DATE CREATED AUTHOR 02/27/2021 [facility] DATE CREATED AUTHOR AUTHOR'S ORGANIZ ATION 07/09/2022 [facility] DATE CREATED AUTHOR AUTHOR'S ORGANIZ ATION 09/25/2022 [facility] Care Teams (unrecognized sec tion and content) [...] BE BASED ON THE PRIMARY CLINICAL RECORDS. [facility] [facility]. provides no warranty or guarantee of the accuracy or completeness of information in this document.
[2025-06-22 07:13] LABS: Hematocrit 38.5 % (36.0-48.0); Hemoglobin 12.7 g/dL (12.0-16.0); Immature Granulocytes Abs Auto 0.02 10^3/uL (0.00-0.03); Immature Granulocytes Pct Auto 0.3 % (0.0-0.5); Lymphocytes Absolute Auto 1.8 10^3/uL (1.2-3.8); Mean Corpuscular HGB Conc 33.0 g/dL (29.9-35.2); Mean Corpuscular Hemoglobin 29.8 pg (26.7-34.0); Mean Corpuscular Volume 90.4 fL (81.0-99.0); Platelet Count 283 10^3/uL (150-450); Red Blood Count 4.26 10^6/uL (4.20-5.40); White Blood Count 7.4 10^3/uL (4.0-11.0)
[2025-06-22 07:54] LABS: Alanine Aminotransferase 18 U/L (14-59); Albumin Globulin Ratio 1.0; Albumin Level 3.8 g/dL (3.4-5.0); Alkaline Phosphatase 70 U/L (46-116); Anion Gap 10.1; Aspartate Amino Transferase 17 U/L (15-37); Blood Urea Nitrogen 11.0 mg/dL (7.0-18.0); Calcium 9.3 mg/dL (8.5-10.1); Carbon Dioxide 31.2 mmol/L (21.0-32.0); Chloride 106 mmol/L (98-107); Cholesterol 172 mg/dL (<=200); Estimated GFR (African America >60 (>=60 mL/min/1.73m^2); Estimated GFR (Non-African Ame >60 (>=60 mL/min/1.73m^2); Free T3 2.39 pg/mL (2.18-3.98); Globulin 3.8 g/dL; Glucose 96 mg/dL (74-106); HDL Cholesterol 47 mg/dL (40-60); Potassium 4.3 mmol/L (3.5-5.1); Sodium 143 mmol/L (136-145); Thyroid Stimulating Hormone 2.338 uIU/mL (0.358-3.740); Total Protein 7.6 g/dL (6.4-8.2); Triglycerides 138 mg/dL (<=150); VLDL CHOLESTEROL 27.6 mg/dL
== END 2025-06-22 06:55 | disposition home or self-care (01) ==
LOC: LAB 06:56
PROVIDERS: PCP Family Medicine; Visit Provider Family Medicine
DX: Z00.00 Encounter for general adult medical examination without abnormal findings (principal); E55.9 Vitamin D deficiency, unspecified; E05.90 Thyrotoxicosis, unspecified without thyrotoxic crisis or storm; M46.92 Unspecified inflammatory spondylopathy, cervical region
CPT/HCPCS: 36415; 80053; 80061; 82306; 83036; 84436; 84443; 84481; 85025

== ENCOUNTER 2025-06-23 08:12 | Outpatient (REF) | payer MEDICARE, BC, SELFPAY ==
--- OUTSIDE RECORDS SUMMARY | 2025-06-23 08:17 | XMS_ITS | CCD ---
Author Organization [facility] Care Team Providers Care Dog Pound Attendant Name Role Phone CORINA Thompson Attending Provider [phone] Lydia Thompson Attending Unavailable Lydia Thompson Admitting [...] : DR JASS UNDERWOOD . Admission #: [id number] Family : Order #: [id number] CLICK HERE TO VIEW EXAM RADIOLOGY REPORT [...] Treatments None Family Cancers None LOCATION: [facility] BREAST COMPOSITION: Extremely dense, which lowers the [...] M.D. on 09/18/2022 at 15:45 Normal [facility] Urine Cultureon 07-05-2022 Bacteria identified Cx Nom (U) Reason for Exam Urinary frequency Urine ORGANISM: Escherichia coli (O:ESCCOL) Percy Count >100,000 Aerobic LELAND Charge (NUC86) ----- [...] RESISTANT TO ALL B-LACTAM DRUGS. PERFORMED BY: [place] [address] PATHOLOGIST PLASTIC BLOCK BOILER RELINER EDI HARVEY M.D. [facility] Comment on above: Performed By: #### C UU #### [facility] [address] [place] [address] INSULINon 03-18-2022 Insulin 3.5 uIU/mL Normal 2.6-24.9 [facility] Comment on above: Performed By: #### I NSULIN #### [facility] Laboratory [address] [place] [address] Dr. Chantel James CBC AUTO DIFFon 03-17-2022 BASO # 0.0 103/ul Normal 0.0-0.1 [facility] Comment on above: Performed By: #### C BC #### [facility] Laboratory [address] [place] [address] Dr. Chantel James Basophils/100 WBC (Bld) 0.5 % Normal 0.2-2.0 [facility] Comment on above: Performed By: #### C BC #### [facility] [address] [place] [address] Dr. Chantel James EO # 0.2 103/ul Normal 0.0-0.7 [facility] Comment on above: Performed By: #### C BC #### [facility] [address] [place] [address] Dr. Chantel James Eosinophils/100 WBC (Bld) 2.6 % Normal 0.9-7.0 [facility] Comment on above: Performed By: #### C BC #### [facility] [address] [place] [address] Dr. Chantel James Erythrocyte distribution width (RBC) [Ratio] 14.6 % Normal 11.0-15.0 [facility] Comment on above: Performed By: #### C BC #### [facility] [address] [place] [address] Dr. Chantel James Hematocrit (Bld) [Volume fraction] 39.4 % Normal 36.0-48.0 [facility] Comment on above: Performed By: #### C BC #### [facility] [address] [place] [address] Dr. Chantel James Hemoglobin (Bld) [Mass/Vol] 12.6 g/dL Normal 12.0-16.0 [facility] Comment on above: Performed By: #### C BC #### [facility] [address] [place] [address] Dr. Chantel James IG # 0.03 10e3/ul Normal 0.00-0.03 [facility] Comment on above: Performed By: #### C BC #### [facility] [address] [place] [address] Dr. Chantel James IG % 0.4 % Normal 0.0-0.5 [facility] Comment on above: Performed By: #### C BC #### [facility] [address] [place] [address] Dr. Chantel James LYMPH # 2.3 103/ul Normal 1.2-3.8 [facility] Comment on above: Performed By: #### C BC #### [facility] [address] [place] [address] Dr. Chantel James Lymphocytes/100 WBC (Bld) 28.0 % Normal 20.5-60.0 [facility] Comment on above: Performed By: #### C BC #### [facility] [address] [place] [address] Dr. Chantel James MANUAL DIFF REQ NO Normal [facility] Comment on above: Performed By: #### C BC #### [facility] [address] [place] [address] Dr. Chantel James MCH (RBC) [Entitic mass] 29.4 pg Normal 26.7-34.0 [facility] Comment on above: Performed By: #### C BC #### [facility] [address] [place] [address] Dr. Chantel James MCHC (RBC) [Mass/Vol] 32.0 g/dL Normal 29.9-35.2 [facility] Comment on above: Performed By: #### C BC #### [facility] [address] [place] [address] Dr. Chantel James MCV (RBC) [Entitic vol] 91.8 fL Normal 81.0-99.0 [facility] Comment on above: Performed By: #### C BC #### [facility] [address] [place] [address] Dr. Chantel James MONO # 0.6 103/ul Normal 0.3-0.8 [facility] Comment on above: Performed By: #### C BC #### [facility] [address] [place] [address] Dr. Chantel James Monocytes/100 WBC (Bld) 7.7 % Normal 1.7-12.0 [facility] Comment on above: Performed By: #### C BC #### [facility] [address] [place] [address] Dr. Chantel James NEUT # 4.9 103/ul Normal 1.4-6.5 [facility] Comment on above: Performed By: #### C BC #### [facility] [address] [place] [address] Dr. Chantel James Neutrophils/100 WBC (Bld) 60.8 % Normal 43.0-75.0 [facility] Comment on above: Performed By: #### C BC #### [facility] [address] [place] [address] Dr. Chantel James Platelet mean volume (Bld) [Entitic vol] 10.5 fL Normal 9.5-13.5 [facility] Comment on above: Performed By: #### C BC #### [facility] [address] [place] [address] Dr. Chantel James PLT 261 103/ul Normal 150-450 [facility] Comment on above: Performed By: #### C BC #### [facility] [address] [address] [address] Chantel James RBC 4.29 106/ul Normal 4.20-5.40 [facility] Comment on above: Performed By: #### C BC #### [facility] [address] [place] [address] Dr. Chantel James WBC 8.1 103/ul Normal 4.0-11.0 [facility] Comment on above: Performed By: #### C BC #### [facility] [address] [place] [address] Dr. Chantel James GLYCOHEMOGLOBIN A1Con 2021 ADA RECOMMENDATION SEE BELOW Normal [facility] Comment on above: Result Comment: ADA RECOMMENDED LIMIT 4.0 - 6.0 ADA THERAPEUTIC TARGET < 7.0 ACTION SUGGESTED > 7.0 Performed By: #### A 1C #### [facility] [address] [place] [address] Dr. Chantel James Glucose [Mass/Vol] 105 mg/dL Normal [facility] Comment on above: Performed By: #### A 1C #### [facility] [address] [place] [address] Dr. Chantel James HbA1c (Bld) [Mass fraction] 5.3 % Normal 4.5-6.2 [facility] Comment on above: Performed By: #### A 1C #### [facility] [address] [place] [address] Dr. Chantel James IRONon 03-17-2022 Iron [Mass/Vol] 83.0 ug/dL Normal 50.0-170.0 [facility] Comment on above: Performed By: #### V ITAD, IRON #### [facility] [address] [address] [address] Chantel James LIPID PROFILEon 03-17-2022 CHOL-HDL RATIO NORM SEE BELOW Normal [facility] Comment on above: Result Comment: 3.3 - 4.4 LOW RISK 4.4 - 7.1 AVERAGE RISK 7.1 - 11.0 MODERATE RISK >11.0 HIGH RISK Performed By: #### L IPID, TSH, CMP #### [facility] [address] [address] [address] Chantel James Cholesterol [Mass/Vol] 250 mg/dL Critically high <=200 [facility] Comment on above: Performed By: #### L IPID, TSH, CMP #### [facility] [address] [address] [address] Chantel James Cholesterol in HDL [Mass/Vol] 49 mg/dL Normal 40-60 [facility] Comment on above: Performed By: #### L IPID, TSH, CMP #### [facility] [address] [address] [address] Chantel James Cholesterol in LDL [Mass/Vol] 173.8 mg/dL Normal [facility] Comment on above: Performed By: #### L IPID, TSH, CMP #### [facility] [address] [address] [address] Chantel James Cholesterol.total/Cho lesterol in HDL [Mass ratio] 5.1 {ratio} Normal [facility] Comment on above: Performed By: #### L IPID, TSH, CMP #### [facility] [address] [address] [address] Chantel James HDL NORMAL > or = 60 mg/dl - LOW CARDIOVASCULAR RISK <40 mg/dl - HIGH CARDIOVASCULAR RISK Normal [facility] Comment on above: Performed By: #### L IPID, TSH, CMP #### [facility] [address] [place] [address] Dr. Chantel James LDL CALC NORMAL SEE BELOW Normal [facility] Comment on above: Result Comment: <100 mg/dl OPTIMAL 100 - 129 mg/dl NEAR OR ABOVE OPTIMAL 130 - 159 mg/dl BORDERLINE HIGH 160 - 189 mg/dl HIGH >190 mg/dl VERY HIGH Performed By: #### L IPID, TSH, CMP #### [facility] [address] [place] [address] Dr. Chantel James Triglyceride [Mass/Vol] 136 mg/dL Normal <=150 [facility] Comment on above: Performed By: #### L IPID, TSH, CMP #### [facility] [address] [place] [address] Dr. Chantel James VLDL CALC 27.2 mg/dL Normal [facility] Comment on above: Performed By: #### L IPID, TSH, CMP #### [facility] [address] [place] [address] Dr. Chantel James PROF 14(COMP METB)on 022 Albumin [Mass/Vol] 4.0 g/dL Normal 3.4-5.0 [facility] Comment on above: Performed By: #### L IPID, TSH, CMP #### [facility] [address] [place] [address] Dr. Chantel James Albumin/Globulin [Mass ratio] 1.1 {ratio} Normal [facility] Comment on above: Performed By: #### L IPID, TSH, CMP #### [facility] [address] [place] [address] Dr. Chantel James ALP [Catalytic activity/Vol] 75 U/L Normal 46-116 [facility] Comment on above: Performed By: #### L IPID, TSH, CMP #### [facility] [address] [place] [address] Dr. Chantel James ALT [Catalytic activity/Vol] 26 U/L Normal 14-59 [facility] Comment on above: Performed By: #### L IPID, TSH, CMP #### [facility] [address] [place] [address] Dr. Chantel James Anion gap [Moles/Vol] 13.3 mmol/L Normal [facility] Comment on above: Performed By: #### L IPID, TSH, CMP #### [facility] [address] [place] [address] Dr. Chantel James AST [Catalytic activity/Vol] 25 U/L Normal 15-37 [facility] Comment on above: Performed By: #### L IPID, TSH, CMP #### [facility] [address] [address] [address] Chantel James Bilirubin [Mass/Vol] 0.5 mg/dL Normal 0.2-1.0 [facility] Comment on above: Performed By: #### L IPID, TSH, CMP #### [facility] [address] [place] [address] Dr. Chantel James Calcium [Mass/Vol] 9.2 mg/dL Normal 8.5-10.1 [facility] Comment on above: Performed By: #### L IPID, TSH, CMP #### [facility] [address] [place] [address] Dr. Chantel James Chloride [Moles/Vol] 104 mmol/L Normal 98-107 [facility] Comment on above: Performed By: #### L IPID, TSH, CMP #### [facility] [address] [place] [address] Dr. Chantel James CO2 [Moles/Vol] 28.4 mmol/L Normal 21.0-32.0 [facility] Comment on above: Performed By: #### L IPID, TSH, CMP #### [facility] [address] [place] [address] Dr. Chantel James Creatinine [Mass/Vol] 1.23 mg/dL Critically high 0.55-1.02 [facility] Comment on above: Performed By: #### L IPID, TSH, CMP #### [facility] [address] [place] [address] Dr. Chantel James EGFR-AF RUSSIAN 53 mL/min/1.73m2 Critically low >=60 [facility] Comment on above: Performed By: #### L IPID, TSH, CMP #### [facility] [address] [place] [address] Dr. Chantel James EGFR-NON AF RUSSIAN 43 mL/min/1.73m2 Critically low >=60 [facility] Comment on above: Performed By: #### L IPID, TSH, CMP #### [facility] [address] [address] [address] Chantel James Globulin (S) [Mass/Vol] 3.8 g/dL Normal [facility] Comment on above: Performed By: #### L IPID, TSH, CMP #### [facility] [address] [address] [address] Chantel James Glucose [Mass/Vol] 99 mg/dL Normal 74-106 [facility] Comment on above: Performed By: #### L IPID, TSH, CMP #### [facility] [address] [address] [address] Chantel James Potassium [Moles/Vol] 4.7 mmol/L Normal 3.5-5.1 [facility] Comment on above: Performed By: #### L IPID, TSH, CMP #### [facility] [address] [place] [address] Dr. Chantel James Protein [Mass/Vol] 7.8 g/dL Normal 6.4-8.2 [facility] Comment on above: Performed By: #### L IPID, TSH, CMP #### [facility] [address] [place] [address] Dr. Chantel James Sodium [Moles/Vol] 141 mmol/L Normal 136-145 [facility] Comment on above: Performed By: #### L IPID, TSH, CMP #### [facility] [address] [place] [address] Dr. Chantel James Urea nitrogen [Mass/Vol] 17.0 mg/dL Normal 7.0-18.0 [facility] Comment on above: Performed By: #### L IPID, TSH, CMP #### [facility] [address] [place] [address] Dr. Chantel James Urea nitrogen/Creatinine [Mass ratio] 13.8 mg/mg Normal [facility] Comment on above: Performed By: #### L IPID, TSH, CMP #### [facility] [address] [place] [address] Dr. Chantel James TSHon 03-17-2022 TSH 1.674 uIU/mL Normal 0.358-3.740 [facility] Comment on above: Performed By: #### L IPID, TSH, CMP #### [facility] [address] [place], [place] [address] Dr. Chantel James VITAMIN D 25 OHon 03-17-2022 VIT D 25-OH 29.9 ng/mL Normal [facility] Comment on above: Performed By: #### V ITAD, IRON #### [facility] [address] [place], [place] [address] Dr. Chantel James VIT D RANGES SEE BELOW Normal [facility] Comment on above: Result Comment: <20 ng/mL Vit D deficient 20 - <30 ng/mL Vit D insufficient 30 - 100 ng/mL Vit D sufficient >100 ng/mL Potential Toxicity Performed By: #### V ITAD, IRON #### [facility] [address] [place], [place] [address] Dr. Chantel James Consent for COVID Vaccineon 12-06-2020 SARS-CoV-2 (COVID-19) RNA GRAYSON+probe Ql (Unsp spec) [id number] 5#1.00CD:127 Normal [facility] Consent for COVID Vaccineon 11-01-2020 SARS-CoV-2 (COVID-19) RNA GRAYSON+probe Ql (Unsp spec) [id number] 4#1.00CD:127 Normal [facility] Consent for Treatmenton Consent for Treatment [id number] 7#1.00CD:127 Normal [facility] Coding Summary.on 10-31-2020 Coding Summary. CODING DATE: 10/31/2020 FINAL [facility] STATUS: PAYOR: Medicare APC DESCRIPTION [...] CphT Date Saved: 10/31/2020 01:42 pm Normal [facility] Encounters Encounter Date Encounter Type Care Provider Facility Start: 09-18-2022 End: 09-19-[address] JASS UNDERWOOD Facility:[facility] Start: 07-05-2022 End: 07-05-2022 ambulatory Lydia Thompson Facility:[facility] Start: 07-05-2022 End: 07-05-2022 ambulatory EDUCATION ANALYST-C Lydia Thompson Work Phone: [facility] Work Phone: Start: 07-05-2022 End: 07-05-2022 Departed Referred EDUCATION ANALYST-C Lydia Thompson Work Phone: [facility] [place] Start: 03-17-2022 End: 03-18-[address] JASS UNDERWOOD Facility:[facility] Start: 01-17-[address] JASS UNDERWOOD Facility :[facility] Plan of Treatment Date Care Activity Detail Author Bacteria identified in Urine by Culture [facility] Payers Date Payer Category Payer Medicare [id number] 1961 Self-pay 1961 Unknown [id number] 1955 Unknown [id number] [id number] 1955 Unknown [id number] .16.84 [id number] 1955 Unknown [id number] .16.84 [id number] Unknown [id number] Social History Date Type Detail [facility] Work Phone: Start: 1955 Sex Assigned At Female F [facility] Evaluation note Note Date & Type Note Facility Evaluation note No assessment information availa luciano [facility] Work Phone: Summary Purpose Family History No Family History Records FoundNo Family History Records FoundNo Family History Records Found Advance Directives No Advanced Directives Records FoundNo Advanced Directives Records FoundNo Advanced Directives Records Found Chief Complaint and Reason for Visit Chief Complaint Urinary frequency Additional Source Comments INFORMATION SOURCE (unrecogn ized section and content) DATE CREATED AUTHOR 02/27/2021 [facility] DATE CREATED AUTHOR AUTHOR'S ORGANIZ ATION 07/09/2022 [facility] DATE CREATED AUTHOR AUTHOR'S ORGANIZ ATION 09/25/2022 [facility] Care Teams (unrecognized sec tion and [...] BE BASED ON THE PRIMARY CLINICAL RECORDS. [facility] Transfer To [facility]. provides no warranty or guarantee of the accuracy or completeness of information in this document.
== END 2025-06-23 08:13 | disposition home or self-care (01) ==
LOC: LAB 08:12
PROVIDERS: PCP Family Medicine; Visit Provider Family Medicine
DX: Z00.00 Encounter for general adult medical examination without abnormal findings (principal); E55.9 Vitamin D deficiency, unspecified; E05.90 Thyrotoxicosis, unspecified without thyrotoxic crisis or storm; M46.92 Unspecified inflammatory spondylopathy, cervical region
CPT/HCPCS: G0328

== ENCOUNTER 2025-06-28 08:09 | Outpatient (OUT) | payer MEDICARE, BC, SELFPAY ==
--- OUTSIDE RECORDS SUMMARY | 2025-06-21 05:00 | XMS_ITS ---
Author Organization The [facility] in [place] Address [address] [place] [address] Care Team Providers Care Conveyor Console Operator Name Role Phone Michael Ortega Primary Care Provider [phone] Allergies No Known Allergies Results Component Value Reference Range Notes GLYCOHEMOGLOBIN A1C Reviewed date:06/22/2025 12:53:32 PM Interpretation: Performing Lab: Notes/Report: [facility] , Glycohemoglobin A1C 5.6 4.5-6.2 % ADA RECOMMENDED LIMIT 4.0 - 6.0 ADA THERAPEUTIC TARGET < 7.0 ACTION SUGGESTED > 7.0 Estimated Average Glucose 114 Performing Lab: see note ML - [facility] REASON FOR VISIT medicare wellness Medications Medication [...] 06/21/2025 Encounters Encounter Location Date Provider Diagnosis [address] [place] [address] 06/21/2025 Michael Ortega Encounter for Medica re [...] FECAL, IMMUNOASSAY 025 CBC W/AUTO DIFF 06/21/2025 THYROID PANEL (T4/TSH/FREE T3) Vitamin D 06/21/2025 Lipid Panel 06/21/2025 Progress Notes * Natali ESCOBEDO KDOB:1955 (70 yo F)Acc No.[id number]:06/21/2025 Progress Note Patient: Natali HERRING Provider: Polly Ortega ([facility])MD :1955 A ge:70 Y S ex:Female Date:06/21/2025 Address:[address] [place] [address] , [place], [id number] Check In:08:50 AM ESTCheck O ut:09:53 AM EST Subjective: * Chief Complaints: * Riky parekh wellness * HPI: Riky parekh Annual Wellness Visit: [facility]: [facility] (SAWV[facility]? Visual Acuity: N /A. Other Providers of Care: C are Team reviewed with patient: Damaris marlo, and updates made in [place] of Care Physical Activity: D o you [...] o you have a Durable Power of Dye Machine Tender? Y es W ould you like to [...] in a a tent, in an overnight long-term, or temporarily in someone else's home??No A [...] that you have identified? N o * Active Problem List E55.9 Vitamin D deficiency Modified On:12/21/2023/U Status:confirmed K59.00 Constipation Modified On:12/04/2023U Status:confirmed E05.90 Hyperthyroidism Modified On:12/21/2023/U Status:confirmed E05.90 Thyrotoxicosis, unsp ecified without thyrotoxic crisis or storm Modified On:12/19/2022/U Status:confirmed M46.92 Cervical arthritis Modified On:12/07/2023/U Status:confirmed Z00.00 Well adult Modified On:12/21/2024/U Status:confirmed * Medical History: * Surgical History: T ubal 1989left breast biopsy 2000bilat cataract cyst removal left arm colonooscopy 2016 * Hospitalization/Major Diagno stic Procedure: s ee above * Family History: F ather: , diagnosed with Unspecified heart disease, Chronic kidney disease, unspecified, Atrial fibrillation, unspecified type. M other: , alzheimers, macular deg, high cholesterol, , glaucoma. B brader(s): alive, macular degeneration, diagnosed with Diabetes mellitus [...] I nterpretation N egative * Medications: T akingLactulose 10 GM/15ML Solution 30ml Oral QID-as needed for constipation Simvastatin 20 MG Tablet TAKE ONE TABLET BY MOUTH ONCE DAILY Oral Medication List reviewed and reconciled with the patientTaking Lactulose 10 GM/15ML Solution 30ml Oral QID-as needed for constipation Taking Simvastatin 20 MG Tablet TAKE ONE TABLET BY MOUTH ONCE DAILY Oral Medication List reviewed and reconciled with the patient * Allergies: N .K.D.A.no[Allergies Verified] Objective: * Vitals: W t:114lbs, Ht: 61 in, BP:110/62mm Hg, BMI:21.54Index. Assessment: * Assessment: 1. E ncounter for Medicare annual wellness exam - Z00.00 (Primary) 2 . V itamin D deficiency - E55.9 3 . H yperthyroidism - E05.90 4 . C ervical arthritis - M46.92 patient presents to the [facility] for a subsequent medicare wellness [...] L AB: CBC W/AUTO DIFF L AB: THYROID PANEL (T4/TSH/FREE T3) L AB: Vitamin D L AB: Lipid Panel L AB: GLYCOHEMOGLOBIN A1C (Collection Date & Time - 06/22/2025 07:09 AM) 3. H yperthyroidism L AB: COMPREHENSIVE METABOLIC PROFILE WITH GFR L AB: OCCULT BLOOD, FECAL, IMMUNOASSAY L AB: CBC W/AUTO DIFF L AB: THYROID PANEL (T4/TSH/FREE T3) L AB: Vitamin D L AB: Lipid Panel L AB: GLYCOHEMOGLOBIN A1C (Collection Date & Time - 06/22/2025 07:09 AM) 4. C ervical arthritis L AB: COMPREHENSIVE METABOLIC PROFILE WITH GFR L AB: OCCULT BLOOD, FECAL, IMMUNOASSAY L AB: CBC W/AUTO DIFF L AB: THYROID PANEL (T4/TSH/FREE T3) L AB: Vitamin D L AB: Lipid Panel L AB: GLYCOHEMOGLOBIN A1C (Collection Date & Time - 06/22/2025 07:09 AM) * Labs: * L ab: GLYCOHEMOGLOBIN A1C (Collection Date & Time - 06/22/2025 07:09 AM) * Procedure Codes: 3 078F DIAST BP < 80 MM [id number] SYST BP LT 130 MM [id number] ANNUAL WELLNESS, SUBSEQ * Preventive Medicine: Screenings/Counseling: F ALL RISK SCREENING Fall Risk Assessment: N o falls in the past year Are you afraid of falling? N o * * Sign off status: Completed Visit Status: C HK (Check Out) true * Provider: Polly Ortega ([facility])MD Date: 0 06/21/2025 Generated for Peter kraft/Azael/eTshannan on: 1 08:12 AM EDT History and Physical Notes * [...] dentures?: Excellent Medication List Follow-Up: During the pa st four weeks, how much bodily pain [...] Do you have a Durable Power of Dye Machine Tender? : Yes Would you like to discuss this topic tod ay?: Yes Other Providers of Care: Care Team karen solano with patient:: Yes, and updates made in [place] [facility] SDOH Agree to complete So [facility] Determinants of Health questionnaire: Yes Within [...] in a a tent, in an overnight long-term, or temporarily in someone else's home?: No [...]
--- OUTSIDE RECORDS SUMMARY | 2025-06-21 05:25 | XMS_ITS ---
Author Organization [facility] in [place] Address [address] [place] [address] Care Team Providers Care Greek Professor Name Role Phone Michael Ortega Primary Care Provider REASON FOR VISIT medicare wellness Encounters Encounter Location Date Provider Diagnosis [facility] [address] [facility] [place] [address] 06/21/2025 Michael Oretga Senile osteopenia M85.80 Assessments Encounter Date Diagnosis (ICD Code) Assessment Notes Treatment Notes Treatment Clinical Notes Section Notes 06/21/2025 Senile osteopenia (ICD-10 - M85.80) Plan Of Treatment Pending Test Test Name Order Date XR DEXA BONE DENSITY 06/21/2025 Progress Notes * Natali ESCOBEDO KDOB:1955 (70 yo F)Acc No.[id number]:06/21/2025 Patient: Elif XIAO Natali Cisneros :1955 A ge:70 Y S ex:Female Address:[address] [place] [address] [place], [address] Subjective: * Chief Complaints: * M edicare wellness * Medical History: * Surgical History: * Hospitalization/Major Diagno stic Procedure: * Medications: Objective: * Vitals: * Physical Examination: Assessment: * Assessment: 1. S enile osteopenia - M85.80 (Primary) Plan: * Treatment: * Procedure Codes: * true * Date: Generated for Printi ng/Faxing/eTransmitting on: 1 08:13 AM EDT
--- OUTSIDE RECORDS SUMMARY | 2025-06-23 08:00 | XMS_ITS ---
Author Organization [facility] in [place] Address [address] [place] [address] Care Team Providers Care Fresh Work Wrapper Layer Name Role Phone Michael Ortega Primary Care Provider Reason For Referral Reason egd and colonoscopy Diagnosis 1 Positive occult stoo l blood test (R19.5) Referral Organization [facility] Referring Provider First Name Michael Referring Provider Last Name Shannon [facility] icilolly Referred Provider Ashu Real Referred Provider Specialty General Surg myke Referral Priority Routine REASON FOR VISIT + OB- Encounters Encounter Location Date Provider Diagnosis [place] [address] [facility] [place] [address] 06/23/2025 Michael Ortega Positive occult stoo l blood test R19.5 Assessments Encounter Date Diagnosis (ICD Code) Assessment Notes Treatment Notes Treatment Clinical Notes Section Notes 06/23/2025 Positive occult stool blood test (ICD-10 - R19.5) Plan Of Treatment Referrals Referral Date Details 06/26/2025 06/26/2025, egd and colonoscopy, Ashu Real Progress Notes * Natali ESCOBEDO KDOB:1955 (70 yo F)Acc No.[id number]:06/23/2025 Patient: Elif SHRUTIVijayNatali :1955 A ge:70 Y S ex:Female Address:[address] [place] [address] [place], [address] Subjective: * Chief Complaints: * + OB- * Medical History: * Surgical History: * Hospitalization/Major Diagno stic Procedure: * Medications: Objective: * Vitals: * Physical Examination: Assessment: * Assessment: 1. P ositive occult stool blood test - R19.5 (Primary) Plan: * Treatment: * Procedure Codes: * true * Date: Generated for Peter kraft/Azael/Rinitting on: 1 08:13 AM EDT Consultation Request Notes Referral Date Referring Provider Referred Provider Not es 06/26/2025 Michael Ortega, Ashu jeff and flore[facility]
--- OUTSIDE RECORDS SUMMARY | 2025-06-26 10:21 | XMS_ITS ---
Author Name Auto Generated Organization OHIP PROBLEMS No Problem Records Found PROCEDURES No Procedure Records Found RESULTS No Result Records Found ALLERGIES DATE TYPE / CODE NAME / CODE REACTION SEVERITY SOURCE MARY [id number](SNOMED CT) No Known Allergies [facility] MARY [id number](SNOMED CT) Unable to obtain [facility] ENCOUNTERS ADMIT/DISCHARGE ACCOUNT NUMBER ADMITTING ENCOUNTER CLASS LOC ATION SOURCE 06/26/2025 [id number] [facility] PAYERS ENCOUNTER GUARANTOR PAYER SUBSCRIBER SOURCE 06/26/2025 KEIKO ESCOBEDODOB: [facility] DRTel: () Primary Insurance:MEDICAREPo licy Number: [id number] Date:[id number] [address]JN: KEIKO ARIAS [facility] 06/26/2025 Secondary Insurance:AnthemPoli cy Number: [id number] e Date:[id number]: 404 KEIKO ARIAS [facility]
--- OUTSIDE RECORDS SUMMARY | 2025-06-28 08:12 | XMS_ITS | Clinical Summary ---
Author Organization [facility] Address [address] [facility] [address] [place] [address] Care Team Providers Care Film Booker Name Role Phone Unavailable Primary Care Provider Unavailabl e Source Comments The following information is NOT included in Care Everywhere downloads:Psychiatric notes, ECG results, Cardiac Rehab notes, Pulmonary Function notes, data from [facility] (includes but not limited toPregnancy data,audiograms, eye exams, pre-surgical evaluation notes, well-child exam data).[facility] Allergies No known active allergies Medications No [...] 75+ series) 2028 [place] [address] [facility]
--- OUTSIDE RECORDS SUMMARY | 2025-06-28 08:13 | XMS_ITS | Patient Health Record ---
Author Organization [facility] [place] Address [address] [place] [address] Care Team Providers Care Automobile Damage Appraiser Name Role Phone Michael Ortega Primary Care Provider [phone] Allergies No Known Allergies Results Component Value Reference Range Notes GLYCOHEMOGLOBIN A1C Reviewed date:06/22/2025 12:53:32 PM Interpretation: Performing Lab: Notes/Report: [facility] , Glycohemoglobin A1C 5.6 4.5-6.2 % ACTION SUGGESTED > 7.0 ADA THERAPEUTIC TARGET < 7.0 ADA RECOMMENDED LIMIT 4.0 - 6.0 Estimated Average Glucose 114 Performing Lab: see note ML - [facility] LB VITAMIN D 25 OH Reviewed date:06/22/2025 12:53:32 PM Interpretation: Performing Lab: Notes/Report: [facility] , Vitamin D 18.9 20-<30 ng/mL Vit D insufficient 30-100 ng/mL Vit D sufficient >100 ng/mL Potential Toxicity <20 ng/mL Vit D deficient Performing Lab: see note ML - [facility] LB TSH Reviewed date:06/22/2025 12:53:32 PM Interpretation: Performing Lab: Notes/Report: [facility] , Thyroid Stimulating Hormone 2.338 0.358-3.740 u IU/mL Performing Lab: see note ML - [facility] LB T4 Reviewed date:06/22/2025 12:53:32 PM Interpretation: Performing Lab: Notes/Report: [facility] , T4 Thyroxine 8.20 4.80-13.90 ug/dL Performing Lab: see note ML - [facility] PROF 14(COMP METB) Reviewed date:06/22/2025 12:53:32 PM Interpretation: Performing Lab: Notes/Report: [facility] , Sodium 143 136-145 mmol/L Potassium 4.3 3.5-5.1 mmol/L Chloride 106 98-107 mmol/L Carbon Dioxide 31.2 21.0-32.0 mmol/L Anion Gap 10.1 Glucose 96 74-106 mg/dL Blood Urea Nitrogen 11.0 7.0-18.0 mg/dL Creatinine 0.89 0.55-1.02 mg/dL Estimated GFR ( Lulu >60 >=60 mL/min/1.73m 2 Estimated GFR (Non- Aracely >60 >=60 mL/min/1.73m 2 BUN Creatinine Ratio 12.4 Calcium 9.3 8.5-10.1 mg/dL Bilirubin Total 0.5 0.2-1.0 mg/dL Aspartate Amino Transferase 17 15-37 U/L Alanine Aminotransferase 18 14-59 U/L Alkaline Phosphatase 70 46-116 U/L Total Protein 7.6 6.4-8.2 g/dL Albumin Level 3.8 3.4-5.0 g/dL Globulin 3.8 Albumin Globulin Ratio 1.0 Performing Lab: see note ML - [facility] LB LIPID PROFILE Reviewed date:06/22/2025 12:53:32 PM Interpretation: Performing Lab: Notes/Report: [facility] , Triglycerides 138 <=150 mg/dL Cholesterol 172 <=200 mg/dL HDL Cholesterol 47 40-60 mg/dL > or =60 mg/dl - LOW CARDIOVASCULAR RISK <40 mg/dl - HIGH CARDIOVASCULAR RISK LDL Cholesterol Calculated 97.4 130-159 mg/dl BORDERLINE HIGH 100-129 mg/dl NEAR OR ABOVE OPTIMAL >190 mg/dl VERY HIGH <100 mg/dl OPTIMAL 160-189 mg/dl HIGH VLDL CHOLESTEROL 27.6 Chol HDL Ratio 3.7 7.1 - 11.0 MODERATE RISK 4.4 - 7.1 AVERAGE RISK 3.3 - 4.4 LOW RISK >11.0 HIGH RISK Performing Lab: see note ML - [facility] FREE T3 Reviewed date:06/22/2025 12:53:32 PM Interpretation: Performing Lab: Notes/Report: [facility] , Free T3 2.39 2.18-3.98 pg/mL Performing Lab: see note ML - [facility] LB CBC AUTO DIFF Reviewed date:06/22/2025 12:53:32 PM Interpretation: Performing Lab: Notes/Report: [facility] , White Blood Count 7.4 4.0-11.0 10 3/uL Red Blood Count 4.26 4.20-5.40 10 6/uL Hemoglobin 12.7 12.0-16.0 g/dL Hematocrit 38.5 36.0-48.0 % Mean Corpuscular Volume 90.4 81.0-99.0 fL Mean Corpuscular Hemoglobin 29.8 26.7-34.0 pg Mean Corpuscular HGB Conc 33.0 29.9-35.2 g/dL Red Cell Distribution Width 14.7 11.0-15.0 % Platelet Count 283 150-450 10 3/uL Mean Platelet Volume 10.3 9.5-13.5 fL Neutrophils Percent Auto 65.4 43.0-75.0 % Lymphocytes Percent Auto 24.1 20.5-60.0 % Monocytes Percent Auto 7.8 1.7-12.0 % Eosinophils Percent Auto 1.9 0.9-7.0 % Basophils Percent Auto 0.5 0.2-2.0 % Immature Granulocytes Pct Auto 0.3 0.0-0.5 % Neutrophils Absolute Auto 4.9 1.4-6.5 10 3/uL Lymphocytes Absolute Auto 1.8 1.2-3.8 10 3/uL Monocytes Absolute Auto 0.6 0.3-0.8 10 3/uL Eosinophils Absolute Auto 0.1 0.0-0.7 10 3/uL Basophils Absolute Auto 0.0 0.0-0.1 10 3/uL Immature Granulocytes Abs Auto 0.02 0.00-0.03 10 3/uL Performing Lab: see note ML - [facility] LB MM tomosynthesis screening B I Reviewed date:01/02/2025 06:08:36 PM Interpretation: Performing Lab: Notes/Report: Source Facility: [facility]-[address] [place] [address] [place] [address] Mammography Report Signed Patient: NATALI ESCOBEDO MR#: [id number] : 1955 Acct:[id number] Age/Sex: 69 / F ADM Date: 01/02/25 Loc: MAMMO Attending Dr: Ivan Ortega M.D. Ordering Physician: Ivan Ortega M.D. Results: Date of Service: 01/02/25 Follow Up: Procedure(s): MM tomosynthesis screening BI Accession Number(s): [id number] cc: Ivan Ortega M.D. Patient Name: NATALI ESCOBEDO MR#: [id number] : 1955 Exam Date: 01/02/2025 Ordering Doctor: [...] Family Cancers None LOCATION: [facility] BREAST COMPOSITION: The breasts are heterogeneously dense,which [...] Signed By: 01/02/25 1556 DD/ 1556 TD/TT: Hoisting Engine Operator: Occult Blood* Reviewed date:06/23/2025 12:02:09 PM Interpretation: Performing Lab: Notes/Report: [facility] , Occult Blood Positive Performing Lab: see note ML - [facility] LB Reason For Referral Reason egd and colonoscopy Diagnosis 1 Positive occult stoo l blood test (R19.5) Referral Organization [facility] Referring Provider First Name Michael Referring Provider Last Name Shannon Referring Provider Speciality Family Med yang Referred Provider Ashu Real Referred Provider Specialty General Surg myke Referral Priority Routine Medications Medication SIG (Take, Route, Frequency, Duration) Notes Start Date End Date Status Lactulose 10 GM/15ML 30ml Oral QID-as ne eded for constipation; Duration: 90 days Active Simvastatin 20 MG TAKE ONE TABLET BY M OUTH ONCE DAILY Oral; Duration: 90 Days Active Vitamin D (Cholecalciferol) 50 MCG (1999) 1 capsule Orally Once a day 06/22/2025 Active Immunizations Vaccine Route Administration Date Status Comme nts Flu, Fluad (20173) 65 yrs + High Dose Seasonal () Unknown 07/11/2022 Administered Flu, Fluad (40393) 65 yrs an d older, single-dose syringe () Unknown 08/13/2018 Administered Flu, Fluad (36972) 65 yrs an d older, single-dose syringe () Unknown 08/01/2019 Administered Flu, Fluad (24853) 65 yrs an d older, single-dose syringe () Unknown 07/04/2021 Administered Flu, Fluad (05818) 65 yrs an d older, single-dose syringe () Unknown 06/29/2024 Administered Flu, Fluzone (77763) 6-35mo, multi-dose vial () Unknown 08/07/2014 Administered Flu, Fluzone (53395) 6-35mo, multi-dose vial () Unknown 07/18/2015 Administered Flu, Fluzone (70375) 6-35mo, multi-dose vial () Unknown 07/11/2016 Administered Flu, Fluzone (69302) 6-35mo, multi-dose vial () Unknown 08/03/2017 Administered Flu, Unspecified Unknown 07/29/2013 [...] Status W/U Status Risk Notes Problem Thyrotoxicosis (96166561) Thyrotoxicosis, unspecified without thyrotoxic crisis or storm (E05.90) Active confirmed Problem Vitamin D deficiency (12433553) Vitamin D deficiency (E55.9) Active confirmed Problem Constipation (58443625) Constipation (K59.00) Active confirmed Problem Well adult (033269980) Well adult (Z00.00) Active confirmed Problem Hyperthyroidism (14355251) Hyperthyroidism (E05.90) Active confirmed Problem Cervical arthritis (771959288) Cervical arthritis (M46.92) Active confirmed Vital Signs Blood pressure diastolic 62 mm Hg 06/21/2025 Height 61 in 06/21/2025 Blood pressure systolic 110 mm Hg 06/21/2025 Weight 114 lbs 06/21/2025 BMI 21.54 kg/m2 06/21/2025 Encounters Encounter Location Date Provider Diagnosis [facility] [address] [place] [address] 06/21/2025 Michael Ortega Encounter for Medica re annual wellness exam Z00.00 ; Vitamin D deficiency E55.9 ; Hyperthyroidism E05.90 [address] M46.92 [facility] [address] [place] [place] [address] 12/21/2024 Michael Sharmay Well adult Z00.00 [facility] [address] [facility] [address] 12/26/2024 Michael Hoy Hyperthyroidism E05. 90 [facility] [address] [place] [place] [address] 01/02/[address] [facility] [address] [facility] [address] 06/21/2025 Michael Hoy Senile osteopenia M8 5.80 [facility] [address] [place] [address] 06/22/[address] [facility] [address] [place] [address] 06/23/2025 Michael Hoy Positive occult stoo l blood test R19.5 [...] E05.90) 06/21/2025 Senile osteopenia (ICD-10 - M85.80) 06/23/2025 Positive occult stool blood test (ICD-10 - R19.5) 06/21/2025 Hyperthyroidism (ICD-10 - E05.90) patient presents [...] A1C (GLYCO) 12/21/2023 LIPID PANEL (CHOL/TRIG/HDL/LDL) 12/21/19 CBC WITH DIFF 12/21/2023 VITAMIN D, 25 LEVEL (TOTAL) 12/21/2023 MAMM Mammograms CAD 12/21/2023 MRI Cervical Spine w/o contrast * 2023 COMPREHENSIVE METABOLIC PROFILE WITH GFR 06/21/2025 OCCULT BLOOD, FECAL, IMMUNOASSAY 025 CBC W/AUTO DIFF 06/21/2025 XR CSPINE MIN 4 VIEWS 12/04/2023 XR DEXA BONE DENSITY 06/21/2025 THYROID PANEL (T4/TSH/FREE T3) 5 THYROID PANEL (T4/TSH/FREE T3) 4 MM screening mammo BI 12/21/2024 Vitamin D 06/21/2025 Lipid Panel 06/21/2025 Insurance Providers Payer Name Payer Address Payer Phone Subscriber Number Group Number Insured Name Patient Relationship to Insured Coverage Start Date Coverage End Date [place]IC[place] [address] [place] [address] [id number] Natali Escobedo Self - patient is the insured [facility] SUPPLEMENT [address] [place] [address] [id number] Natali Escobedo Self - patient is the insured Medical (General) History Medical History History ICD Code Vitamin D deficiency E55.9 Constipation K59.00 Arterial thoracic 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
== END 2025-06-28 08:10 | disposition home or self-care (01) ==
LOC: RAD 08:10
PROVIDERS: PCP Family Medicine; Visit Provider Family Medicine
DX: M85.88 Other specified disorders of bone density and structure, other site (principal); M85.80 Other specified disorders of bone density and structure, unspecified site
CPT/HCPCS: 77080

== ENCOUNTER 2025-08-29 10:50 | Outpatient (OUT) | payer MEDICARE, BC, SELFPAY ==
--- OUTSIDE RECORDS SUMMARY | 2025-08-29 10:52 | XMS_ITS | Clinical Summary ---
Author Organization [facility] Address [address] [place] [facility] [place] [address] Care Team Providers Care Railroad Auditor Name Role Phone Unavailable Primary Care Provider Unavailabl e Social History Tobacco UseTypesPacks/DayYears UsedDateSmoking Tobacco: Never Assessed CommentsUnknownSex and Gender InformationValueDate RecordedSex Assigned at Not on fileLegal GpcYdbphm49/15/2023 6:52 PM EDTGender IdentityNot on fileSexual OrientationNot on file Plan of Treatment Not on file
--- OUTSIDE RECORDS SUMMARY | 2025-08-29 10:52 | XMS_ITS | Clinical Summary ---
Author Organization [facility] Address [address] [facility] [place] [address] Care Team Providers Care Telecasting Engineer Name Role Phone Unavailable Primary Care Provider Unavailabl e Source Comments The following information is NOT included in Care Everywhere downloads:Psychiatric notes, ECG results, Cardiac Rehab notes, Pulmonary Function notes, data from [facility] (includes but not limited toPregnancy data,audiograms, eye exams, pre-surgical evaluation notes, well-child exam data).[facility] Allergies No known active allergies Medications No known medications Social History Tobacco UseTypesPacks/DayYears UsedDateSmoking Tobacco: Never Assessed CommentsUnknownSex and Gender InformationValueDate RecordedSex Assigned at Not on fileLegal HovNmrwez74/19/2016 10:09 AM EDTGender IdentityNot on file Sexual OrientationNot on file Last Filed Vital Signs Vital SignReadingTime TakenCommentsBlood Gfbfyoov725/66001/15/2016 3:01 PM EDT Rcmrg932001/15/2016 3:01 PM MYIKewdlvlwpso84.7 ??C (98 ??F)01/15/2016 3:01 PM EDT Respiratory Kknn3687 3:01 PM EDTOxygen Tuhayyjhpo76%01/15/2016 3:01 PM EDTInhaled Oxygen Concentration--Weight--Height--Body Mass Index-- Plan of Treatment Health MaintenanceDue DateLast KpvyOfgeiitwJmotoflqzcp1955Hepatitis C Zorfmdye61/17/1971Tdap Qcinbyg1406/14/1971Hepatitis A (HAV) Vaccine (optional start 19+ years)06/14/19724794Jmnbatdeybp87/17/1993CRC Xpaluiprn03/17/1998 Btdtbkiitxv34/17/1998Cologuard (Stool DNA)1998FIT1998Pneumococcal Vaccine(s) (50+ yrs) (1 of 1 - PCV)2003Shingles (RZV) Vaccine (1 of 2) 2003Hepatitis B (HBV) Vaccine (optional start 60+ years)2013one Xgqpwvsdzmnv28/17/2018COVID-19 Vaccine (1 - 2024- season)2025Influenza Vaccine (#1)2025RSV vaccine (adult) (1 - 1-dose 75+ series)2028Pap SmearDiscontinued Insurance
--- OUTSIDE RECORDS SUMMARY | 2025-08-29 11:07 | XMS_ITS | CCD ---
Author Organization [facility] Care Team Providers Care Motorcycle Service Technician Name Role Phone CORINA Thompson Attending Provider Lydia Thompson Attending Unavailable Lydia Thompson Admitting Unavailable NO FAMILY, PHYSICIAN Primary Care Unavailable KJ, DR REGAN Admitting Unavailable KJ, DR REGAN Primary Care Unavailable KJ, DR REGAN Attending Unavailable KJ, DR REGAN Admitting Unavailable KJ, DR REGAN Primary Care Unavailable KJ, DR REGAN Consulting Unavailable KJ, DR REGAN Attending Unavailable DARLNIE, DR MEDHAT Asencio Consulting Unavailable KJ, DR REGAN Admitting Unavailable KJ, DR REGAN Primary Care Unavailable KJ, DR REGAN Consulting Unavailable KJ, DR REGAN Attending Unavailable Jass Ortega Primary Care Physician Ashu KINNEY Attending Unavailable Jass Ortega Referring Unavailable Allergies Allergy ClassificationReported Allergen(s)Allergy TypeDate of OnsetReaction(s) Facility (1 source)Unable to obtain; Translations: [Unable to obtain]Propensity to adverse reactions (disorder)[facility] Repository Medications Current Medications MedicationDrug Class(es)DatesSig (Normalized)Sig (Original)lactulose 667 mg/ml oral solution (1 source)Osmotic LaxativeStart: 46-23-4568znyw 20 g by mouth four times daily as needed for constipationlactulose 10 g/15 mL Oral Syrup 20 gm = 30 mL, Oral, QID, PRN as needed for constipation, Refills(s) 0 Start Date: 07/12/25 Status: Ordered Medication Dispense Status: Completed Total Allowed Fills: 1 Fills Dispensed: 0simvastatin 20 mg oral tablet (1 source)HMG-CoA Reductase InhibitorStart: 47-29-2731fkic 1 tablet by mouth once daily in the eveningsimvastatin 20 mg Tab 20 mg = 1 tab(s), Oral, qPM, Refills(s) 0 Start Date: 07/12/25 Status: Ordered Medication Dispense Status: Completed Total Allowed Fills: 1 Fills Dispensed: 0Vitamin D2 2000 intl units oral capsule (1 source)Start: 24-31-8608lrxt 1 capsule by mouth once dailyVitamin D2 2000 intl units oral capsule 50 mcg = 1 cap(s), Oral, Daily, cap(s), Refills(s) 0 Start Date: 07/12/25 Status: Ordered Medication Dispense Status: Completed Total Allowed Fills: 1 Fills Dispensed: 0 Problems Active Problems Problem ClassificationProblemDateDocumented DateEpisodic/ChronicDisorders of lipid metabolism (2 sources)Hyperlipidemia, unspecified; Translations: [Hyperlipidemia]Onset: 398650-74-2982IsyhnkzCymxxfmzypt deficiencies (5 sources)Vitamin D deficiency, unspecified; Translations: [Vitamin D deficiency]Onset: 28-49-2322MuncivvIlgqf gastrointestinal disorders (1 source)Other fecal abnormalitiesOnset: 00-42-0431IkhntihxZhsoi gastrointestinal disorders (1 source)Chronic mcfrowrnivyd12-48-1572ScexziiqLdipk gastrointestinal disorders (2 sources)Occult blood in jpujoq74-22-3981HiijknxxFagbu screening for suspected conditions (not mental disorders or infectious disease) (4 sources)Encounter for screening mammogram for malignant neoplasm of breast; Translations: [ENC SCR MAMMO MALIG NEOPLASM BREAST]Onset: 46-47-2167Mjewbyjc Thyroid disorders (1 source)Pxuudjxhmhlkble19-85-2405AuxodzwSysafnpxceri (1 source)Frequency of micturition; Translations: [Frequency of micturition] Onset: 07-05-2022 Past or Other Problems Problem ClassificationProblemDateDocumented DateEpisodic/ChronicDeficiency and other anemia (1 source)Anemia, unspecified; Translations: [ANEMIA UNSPECIFIED]Onset: 55-88-5671EgcnixipMyzmfchy mellitus without complication (1 source)Other abnormal glucose; Translations: [OTHER ABNORMAL GLUCOSE]Onset: 82-52-0468TpghgnjrNlwux gastrointestinal disorders (1 source)Constipation, unspecified; Translations: [CONSTIPATION UNSPECIFIED] Onset: 38-03-3637Gxxcmwrx Results Test NameValueInterpretationReference RangeFacilityAmbulatory Visit Summaryon 13-06-0630Czmbfapaic Visit SummaryAmbulatory Visit Summary KEIKO ESCOBEDO :1955 Visit Date:08/01/2025 Ambulatory Visit Instructions Your Care Team Attending Physician - GREGORIA GREENWOOD, Ashu Asencio Primary Care Physician - Jass Ortega MD Referring Physician - Jass Ortega MD This Is Your Medications List Contact prescribing physician if questions or concerns ergocalciferol (Vitamin D2 2000 intl units oral capsule) lactulose (lactulose 10 g/15 mL Oral Syrup) simvastatin (simvastatin 20 mg Tab) Procedures Performed Colonoscopy (12/01/2016), Bilateral cataract extraction, Biopsy of breast, Colonoscopy, Excision ofcyst, Tubal ligation. Discharge Vitals Heart Rate (Peripheral) 76 Respiratory Rate 16 Blood Pressure 136/76 Height 154.9 cm Height 61 in Weight 51.6 kg Weight 113.758 lb BMI 21.51 Medications What How Much When Instructions Unchanged ergocalciferol (Vitamin D2 2000 intl units oral capsule) 1 Capsules By Mouth Every day Contact prescribing physician if questions or concerns Unchanged lactulose (lactulose 10 g/ 15 mL Oral Syrup) 30 Milliliter By Mouth 4 times a day as needed for as needed for constipation Contact prescribing physician if questions or concerns Unchanged simvastatin (simvastatin 20 mg Tab) 1 Tablets By Mouth Once a day (in the evening) Contact prescribing physician if questions or concerns Allergies No Known Allergies Problems Ongoing - Any problem that you are currently receiving treatment for. Chronic constipation Hyperlipidemia Hyperthyroidism Occult blood positive stool Vitamin D deficiency Patient Survey You may receive a survey via text or e-mail asking about your office visit. Please share your experience with us by completing your survey. We appreciate your feedback and thank you for choosing us for your care. Patient Portal You may access all of your results and other medical record information on our secure patient portal. If you are not signed up for this yet, please contact [facility] at [phone] to get signed up today. Language Information Language assistance services are available as needed. [facility]D BEATRICE CADon 10-20-6362AT MAMM SCREEN 3D BEATRICE CADPatient: KEIKO ESCOBEDO Exam Date: 09/18/2022 : 1955 Gender:F Ordering : DR JASS ORTEGA . Admission #: [id number] Family : Order #: [id number] CLICK HERE TO VIEW EXAM RADIOLOGY REPORT [...] Treatments None Family Cancers None LOCATION: [facility] BREAST COMPOSITION: Extremely dense, which lowers the [...] PALPABLE LUMP SHOULD BE BIOPSIED. Dictated by: Medhat Luciano M.D. on 09/18/2022 at 15:42 Approved by: Medhat Luciano M.D. on 09/18/2022 at 15:45[facility] Cultureon 03-53-2117Jkrprhlp identified Cx Nom (U)Reason for Exam Urinary frequency Urine ORGANISM: Escherichia coli (O:ESCCOL) [place] Count >100,000 Aerobic LELAND Charge (NUC86) SUSCEPTIBILITY ORGANISM: O:ESCCOL ANTIBIOTIC INTERPRETATION LELAND Amikacin S <16 Ampicillin S <8 Ampicillin/Sulbactam S <8/4 Aztreonam S <4 Cefazolin S <2 Cefepime S <2 Ceftazidime S <1 Ceftazidime/Avibactam S <8 Ceftriaxone S <1 Ciprofloxacin S <1 Ertapenem S <0.5 Gentamicin S <4 Levofloxacin S <2 Meropenem S <1 Nitrofurantoin S <32 Piperacillin/Tazobactam S <16 Tetracycline S <4 Tigecycline S <2 Tobramycin S <4 Trimethoprim/Sulfamethoxazole S <2/38 S = SUSCEPTIBLE I = [...] RESISTANT TO ALL B-LACTAM DRUGS. PERFORMED BY: [facility] [address] [place] [address] PATHOLOGIST ERP SPECIALIST EDI HARVEY M.D.Del[facility] County HospitalComment on above: Performed By: #### CUU #### [facility] [address] [place] [address] USAINSULINon 92-54-6251Ocygviv3.5 uIU/mLNormal2.6-24.9The [facility] HealthComment on above:Performed By: #### INSULIN #### [facility] [address] [place] [address] Dr. Chantel Rocha AUTO DIFFon 24-18-0881CWPY #0.0 103/ulNormal0.0-0.1[facility] HospitalComment on above:Performed By: #### CBC #### [facility] [address] [address] [address] Chantel Rosenbaumsophils/100 WBC (Bld)0.5 %Normal0.2-2.0[facility] Comment on above:Performed By: #### CBC #### [facility] [address] [address] [address] Chantel Romero #0.2 103/ulNormal0.0-0.7The [facility] HealthComment on above: Performed By: #### CBC #### [facility] [address] [address] [address] Chantel Francisosinophils/100 WBC (Bld)2.6 %Normal0.9-7.0[facility] Comment on above:Performed By: #### CBC #### [facility] [address] [place] [address] Dr. Chantel Francisrythrocyte distribution width (RBC) [Ratio]14.6 %Fqvodx25.0-15.0 The [facility] HealthComment on above:Performed By: #### CBC #### [facility] [address] [place] [address] Dr. Chantel JamesHematocrit (Bld) [Volume fraction]39.4 %Fnxvrl22.0-48.0The [facility] HealthComment on above:Performed By: #### CBC #### [facility] [address] [place] [address] Dr. Chantel JamesHemoglobin (Bld) [Mass/Vol]12.6 g/jZSjytgh40.0-16.0The [facility] HealthComment on above:Performed By: #### CBC #### [facility] [address] [place] [address] Dr. Chantel Marinelli #0.03 10e3/ulNormal0.00-0.03The [facility] HealthComment on above:Performed By: #### CBC #### [facility] [address] [place] [address] Dr. Chantel Marinelli %0.4 %Normal0.0-0.5The [facility] HealthComment on above: Performed By: #### CBC #### [facility] [address] [place] [address] Dr. Chantel PorrasH #2.3 103/ulNormal1.2-3.8The [facility] HealthComment on above:Performed By: #### CBC #### [facility] [address] [place] [address] Dr. Chantel Mclainmphocytes/100 WBC (Bld)28.0 %Zysmji21.5-60.0The [facility] HealthComment on above:Performed By: #### CBC #### [facility] [address] [place] [address] Dr. Chantel Callahan DIFF REQNONormalThe [facility]view HealthComment on above: Performed By: #### CBC #### [facility] [address] [place] [address] Dr. Chantel Rodriguez (RBC) [Entitic mass]29.4 noTxsndn16.7-34.0The [facility] HealthComment on above:Performed By: #### CBC #### [facility] [address] [place] [address] Dr. Chantel Rodriguez (RBC) [Mass/Vol]32.0 g/rJIewvmu19.9-35.2The [facility] HealthComment on above:Performed By: #### CBC #### [facility] [address] [place] [address] Dr. Chantel Rodriguez (RBC) [Entitic vol]91.8 dNGdgicb07.0-99.0The [facility] HealthComment on above:Performed By: #### CBC #### [facility] [address] [place] [address] Dr. Chantel Vargas #0.6 103/ulNormal0.3-0.8The [facility] HealthComment on above:Performed By: #### CBC #### [facility] [address] [place] [address] Dr. Chantel Vegaocytes/100 WBC (Bld)7.7 %Normal1.7-12.0[facility] Comment on above:Performed By: #### CBC #### [facility] [address] [place] [address] Dr. Chantel Shelley #4.9 103/ulNormal1.4-6.5The [facility] HealthComment on above:Performed By: #### CBC #### [facility] [address] [place] [address] Dr. Chantel Desouzautrophils/100 WBC (Bld)60.8 %Yhvrxr07.0-75.0The [facility] HealthComment on above:Performed By: #### CBC #### [facility] [address] [place] [address] Dr. Chantel JamesPlatelet mean volume (Bld) [Entitic vol]10.5 fLNormal9.5-13.5The [facility] HealthComasc[facility] providence hospital on above:Performed By: #### CBC #### [facility] [address] [place] [address] Dr. Chantel JamesPLT261 103/cxGhsnua634-901Izu [facility] HealthCom[facility] on above: Performed By: #### CBC #### [facility] [address] [place] [address] Dr. Chantel JamesRBC4.29 106/ulNormal4.20-5.40The [facility] on above:Performed By: #### CBC #### [facility] [address] [place] [address] Dr. Chantel JamesWBC8.1 103/ulNormal4.0-11.0The [facility] on above: Performed By: #### CBC #### [facility] [address] [place] [address] Dr. Chantel JamesGLYCOHEMOGLOBIN A1Con 52-55-7328RKU RECOMMENDATIONSEE BELOWNormBlanchard Valley Health System Bluffton HospitalComascension providence hospital on above:Result Comment: ADA RECOMMENDED LIMIT 4.0 - 6.0 ADA THERAPEUTIC TARGET < 7.0 ACTION SUGGESTED > 7.0Performed By: #### A1C #### [facility] [address] [place] [address] Dr. Chantel JamesGlucose [Mass/Vol]105 mg/dLNormalThProvidence HospitalComascension providence hospital on above:Performed By: #### A1C #### [facility] [address] [place] [address] Dr. Chantel JamesHbA1c (Bld) [Mass fraction]5.3 %Normal4.5-6.2The [facility] on above:Performed By: #### A1C #### [facility] [address] [place] [address] Dr. Chantel JamesIROAlisa 25-01-3795Qcai [Mass/Vol]83.0 ug/rTDnboxk07.0-170.0The [facility] on above:Performed By: #### VITAD, IRON #### [facility] [address] [address] [address] Chantel TamayoID PROFILEon 23-36-2062URZD-HDL RATIO NORMSEE [facility] on above:Result Comment: 3.3 - 4.4 LOW RISK 4.4 - 7.1 AVERAGE RISK 7.1 - 11.0 MODERATE RISK >11.0 HIGH RISKPerformed By: #### LIPID, TSH, CMP #### [facility] [address] [address] [address] Chantel JamesCholesterol [Mass/Vol]250 mg/dLCritically high<=200[facility] on above:Performed By: #### LIPID, TSH, CMP #### [facility] [address] [address] [address] Chantel JamesCholesterol in HDL [Mass/Vol]49 mg/uHFmowpo29-51SkgSelect Medical Specialty Hospital - Trumbull on above:Performed By: #### LIPID, TSH, CMP #### [facility] [address] [address] [address] Chantel JamesCholesterol in LDL [Mass/Vol]173.8 mg/dLRegency Hospital Cleveland East on above:Performed By: #### LIPID, TSH, CMP #### [facility] [address] [address] [address] Chantel Singletonestershayan.total/Cholesterol in HDL [Mass ratio]5.1 {ratio} NormalThe [facility] on above:Performed By: #### LIPID, TSH, CMP #### [facility] [address] [address] [address] Chantel JamesHDL NORMAL> or = 60 mg/dl - LOW CARDIOVASCULAR RISK <40 mg/dl - HIGH CARDIOVASCULAR RISKRegency Hospital [facility] on above:Performed By: #### LIPID, TSH, CMP #### [facility] [address] [address] [address] Chantel JamesLDL CALC NORMALSEE BELOWNormalThe [place] HospitalComment on above:Result Comment: <100 mg/dl OPTIMAL 100 - 129 mg/dl NEAR OR ABOVE OPTIMAL 130 - 159 mg/dl BORDERLINE HIGH 160 - 189 mg/dl HIGH >190 mg/dl VERY HIGH Performed By: #### LIPID, TSH, CMP #### [facility] [address] [address] [address] hCantel JamesTriglyceride [Mass/Vol]136 mg/dLNormal<=150[facility] Comment on above:Performed By: #### LIPID, TSH, CMP #### [facility] [address] [address] [address] Chantel JamesVLDL CALC27.2 mg/dLNormalThe [facility] HealthComment on above: Performed By: #### LIPID, TSH, CMP #### [facility] [address] [place] [address] Dr. Chantel Chávez 14(COMP METB)on 81-90-4591Aydubve [Mass/Vol]4.0 g/dLNormal 3.4-5.0The [facility] HealthComment on above:Performed By: #### LIPID, TSH, CMP #### [facility] [address] [address] [address] Chantel JamesAlbumin/Globulin [Mass ratio]1.1 {ratio}NormalThe [facility] HealthComment on above:Performed By: #### LIPID, TSH, CMP #### [facility] [address] [place] [address] Dr. Chantel Rosario [Catalytic activity/Vol]75 U/ABrsmnb12-760Cny [facility] HealthComment on above:Performed By: #### LIPID, TSH, CMP #### [facility] [address] [address] [address] Chantel Santos [Catalytic activity/Vol]26 U/BHxkwue00-00Ydk [facility] HealthComment on above:Performed By: #### LIPID, TSH, CMP #### [facility] [address] [place] [address] Dr. Chantel Valenzuela gap [Moles/Vol]13.3 mmol/LNormalThe [facility] Comment on above:Performed By: #### LIPID, TSH, CMP #### [facility] [address] [place] [address] Dr. Chantel JamesAST [Catalytic activity/Vol]25 U/SGefvas88-55Ktp [facility] HealthComment on above:Performed By: #### LIPID, TSH, CMP #### [facility] [address] [place] [address] Dr. Chantel JamesBilirubin [Mass/Vol]0.5 mg/dLNormal0.2-1.0[facility] Comment on above:Performed By: #### LIPID, TSH, CMP #### [facility] [address] [place] [address] Dr. Chantel JamesCalcium [Mass/Vol]9.2 mg/dLNormal8.5-10.1The [facility] Comment on above:Performed By: #### LIPID, TSH, CMP #### [facility] [address] [place] [address] Dr. Chantel JamesChloride [Moles/Vol]104 mmol/PMnpnco97-990Csh [facility] Comment on above:Performed By: #### LIPID, TSH, CMP #### [facility] [address] [place] [address] Dr. Chantel JamesCO2 [Moles/Vol]28.4 mmol/ISqcovu74.0-32.0[facility] Comment on above:Performed By: #### LIPID, TSH, CMP #### [facility] [address] [place] [address] Dr. Chantel JamesCreatinine [Mass/Vol]1.23 mg/dLCritically high0.55-1.02The [facility] HealthComment on above:Performed By: #### LIPID, TSH, CMP #### [facility] [address] [place] [address] Dr. Chantel EucedaAF KLFRTBGI30 mL/min/1.98y4Adhcvxguna low>=60The [facility] HealthComment on above:Performed By: #### LIPID, TSH, CMP #### [facility] [address] [place] [address] Dr. Yilan ChangEGFR-NON AF HFIYYHDW28 mL/min/1.69s8Rthzormrmi low>=60The [facility] HealthComment on above:Performed By: #### LIPID, TSH, CMP #### [facility] [address] [address] [address] Chantel JamesGlobulin (S) [Mass/Vol]3.8 g/dLNormOhioHealth Riverside Methodist HospitalComment on above:Performed By: #### LIPID, TSH, CMP #### [facility] [address] [address] [address] Chantel JamesGlucose [Mass/Vol]99 mg/iDEojnrk05-259BkzCleveland Clinic [facility]inte Hospital Comment on above:Performed By: #### LIPID, TSH, CMP #### [facility] [address] [place] [address] Dr. Chantel JamesPotassium [Moles/Vol]4.7 mmol/LNormal3.5-5.1The [facility] Comment on above:Performed By: #### LIPID, TSH, CMP #### [facility] [address] [place] [address] Dr. Chantel JamesProtein [Mass/Vol]7.8 g/dLNormal6.4-8.2The [facility] Comment on above:Performed By: #### LIPID, TSH, CMP #### [facility] [address] [place] [address] Dr. Chantel JamesSodium [Moles/Vol]141 mmol/YLbvkwi888-899UbjCleveland Clinic South Pointe Hospital Comment on above:Performed By: #### LIPID, TSH, CMP #### [facility] [address] [place] [address] Dr. Chantel JamesUrea nitrogen [Mass/Vol]17.0 mg/dLNormal7.0-18.0The [facility] HealthComment on above:Performed By: #### LIPID, TSH, CMP #### [facility] [address] [place] [address] Dr. Chantel JamesUrea nitrogen/Creatinine [Mass ratio]13.8 mg/mgNoSelect Medical OhioHealth Rehabilitation HospitalComment on above:Performed By: #### LIPID, TSH, CMP #### [facility] [address] [address] [address] Chantel Perry 88-36-1193OWT9.674 uIU/mLNormal0.358-3.740The [facility] HealthComment on above:Performed By: #### LIPID, TSH, CMP #### [facility] [address] [address] [address] Chantel JamesVITAMIN D 25 OHon 35-83-5822UBO D 25-OH29.9 ng/mLNormalThe [facility] HealthComment on above:Performed By: #### VITAD, IRON #### [facility] [address] [place] [address] Dr. Chantel Matias [facility] HospitalComment on above: Result Comment: <20 ng/mL Vit D deficient 20 - <30 ng/mL Vit D insufficient 30 - 100 ng/mL Vit D sufficient >100 ng/mL Potential ToxicityPerformed By: #### VITAD, IRON #### [facility] [address] [place] [address] Dr. Chantel James Encounters Encounter DateEncounter TypeCare ProviderFacilityStart: 08-01-2025 End: 01-56-1448yqluektemlRomatas R NILLFacility:[facility]tart: 08-01-2025 End: 72-64-8706Lktxoty encounter procedureMichael R NILL [phone]-LtgxgClermont County Hospital [facility] [place] Start: 59-30-9788crzpmriwqrLhpfnwr NILLFacility:[facility] SystemueStart: 09-18-2022 End: 57-40-1079stkumhwliiBI DOUGLAS HOYFacility:H7Bybqi: 07-05-2022 End: 72-85-9414jbjkdnowymTrdredmre BreaultFacility:[facility] Centertart: 07-05-2022 End: 94-80-0908qsdqlxklcxLGR-C Stephanie Breault Work Phone: [facility] Work Phone: Start: 07-05-2022 End: 93-52-2373Mofzicvw ReferredFNP-C Lydia Thompson Work Phone: [facility] Main CampusStart: 03-17-2022 End: 78-94-0481uglobhlwdcCJ JASS HOYFacility:V0Hrzrh: 85-98-5970mmqunoqztsWF JASS HOYFacility:H1 Procedures DateProcedureProcedure DetailPerforming ClinicianStart: 35-61-6464Wkxrhebivxf Ashu NILL Bilateral cataract extractionMichael NILL Biopsy of breastMichael NILL ColonoscopyMichael NILL Excision of cystMichael NILL Ligation of fallopian tubeMichael NILL Plan of Treatment DateCare ActivityDetailAuthorBacteria identified in Urine by CultureHarrison Community Hospital Immunizations Immunization DateImmunizationNotesCare MdylvmfzOcdtxxsz16-12-4404lsfahbinj virus vaccine, unspecified formulationMichael NILL [phone]-CvwpcClermont County Hospital [facility] [place] 88-83-2867TMST-CoV-2 (COVID-19) mRNA-1273 vaccineMichael NILL [phone]-WtkykMartin [facility] [place] Comment on above:Result Comment: 2025-07-12: UJN4709-88-9948DVSE-NfZ-7 (COVID- 19) mRNA-1273 vaccineMichael NILL [facility] CenterComment on above:Reason for Medication: Other (see comment)10-89-8917CKCP-CoV-2 (COVID-19) mRNA-1273 vaccineMichael NILL [facility] CenterComment on above:Reason for Medication: Other (see comment) Payers DatePayer CategoryPayerPolicy [id number] 1960Self-pay [id number] [id number] [id number] [id number] [id number] Social History DateTypeDetailFacilityTobacco smoking status NHISUnknown if ever smokedSelect Medical Ohiohealth Rehabilitation Hospital Work Phone: Start: 03-49-4401Dvi Assigned At [facility] Generaltart: 78-73-6626Ytlecoa smoking statusEx-smoker (finding)[facility] [place]vueTobacco smoking statusNeverClermont County Hospital [facility] [place]vueSexual OrientationClermont County Hospital [facility] Chip Sex Assigned At [facility] Centertart: 71-54-5340NlrZcwbmw (finding)[facility] Clinical Note 08-01-2025 Note Date & GxcpVdinGtrdktop16-65-0045 NoteGeneral Surgery Office/Clinic Note Chief Complaint consultation for positive occult stool HPI Staff 70 year old female presents on consultation from Dr. Ortega for positive occult stool. Denies abdominal or rectal pain. No rectal bleeding or change in bowel habits. Patient with history of chronic constipation; utilizes Lactulose for this. Denies nausea, vomiting or weight loss. Last colonoscopy completed 11/2016 with spastic left colon. No known family history of colon cancer. History of Present Illness 70 yo female with h/o hyperlipidemia, hyperthyroidism, chronic constipation, referred for positive fecal occult blood test; patient denies change in bms or gross blood in stools, normal formed bm daily on lactulose; last colonoscopy 2016 with spastic colon; abd operations significant for tubal ligation; no asa or NSAID use; no tobacco use; no fmhx of GI malignancy or IBD. Review of Systems PHQ Score Initial Depression Screen Score: 0 SCORE ROS - Provider Constitutional: no fever, no sweats, no weight loss. Eyes: no glasses, no blurred vision, no visual loss. ENMT: no dentures, no hoarseness, no swallowing difficulties, no hearing loss, no ear infection(s),no nose bleeds. Cardiovascular: normal blood pressure, no chest pain, regular heartbeat, no heart murmur. Respiratory: no shortness of breath, no cough, no asthma, no wheezing. Gastrointestinal: no nausea, no vomiting, no diarrhea, no constipation, no blood in stool, no change in bowel habits, no abdominal pain, no hepatitis. Genitourinary: no kidney stones, no urine infection, no dysuria. Musculoskeletal: no pain, no weakness. Skin: no changing moles, no rash, no skin lumps. Neurologic: no seizures, no epilepsy, no headache. Psychiatric: no emotional or psychiatric problem. Heme/Lymph: no bleeding problems, no anemia, no blood clots, no transfusions. Allergy/Immunologic: no swollen lymph nodes/glands, no IV drug abuse. Other: Additional ROS info: Except as noted in the above Review of Systems and in the History of Present Illness, all other systems have been reviewed and are negative or noncontributory. Physical Exam Vitals & Measurements HR: 76(Peripheral) RR: 16 BP: 136/76 HT: 61 in HT: 154.9 cm WT: 113.758 lb WT: 51.6 kg BMI: 21.51 HEENT: normal conjunctiva, sclera clear, no scleral icterus, EOM intact, PERRLA, oral mucosa moist without lesions. Neck: trachea midline, no mass, symmetric, no thyromegaly or nodules, no adenopathy Respiratory: lungs CTA, respirations non labored. Cardiovascular: regular rate and rhythm, no murmur, no pedal edema or varicosities. Gastrointestinal: soft, non distended, no tenderness, no masses, no palpable hernias, diastasis recti no, no hepatosplenomegaly; normal bs Musculoskeletal: normal gait, digits and nails without infection, nodes, cyanosis, clubbing. Skin: no rashes, no lesions, no ulcers, no subcutaneous nodules, induration. Psychiatric/Neuro: oriented to time, place, person, judgement normal, affect appropriate for age, insight intact, no focal deficits. Tests: labs reviewed, , review of old records completed , Discussed surgical options, risks, and possible complications with patient. Assessment/Plan 1. Positive fecal occult blood test (R19.5: Other fecal abnormalities) plan colonoscopy under anesthesia, informed consent obtained. Follow-up No qualifying data available Problem List/Past Medical History Ongoing Chronic constipation Hyperlipidemia Hyperthyroidism Occult blood positive stool Positive fecal occult blood test Vitamin D deficiency Historical No qualifying data Procedure/Surgical History Colonoscopy (12/01/2016), Bilateral cataract extraction, Biopsy of breast, Colonoscopy, Excision ofcyst, Tubal ligation. Medications lactulose 10 g/15 mL Oral Syrup, 20 gm= 30 mL, Oral, QID, PRN simvastatin 20 mg Tab, 20 mg= 1 tab(s), Oral, qPM Vitamin D2 2000 intl units oral capsule, 50 mcg= 1 cap(s), Oral, Daily Allergies No Known Allergies Social History Alcohol - Denies Alcohol Use, 08/01/2025 Never., 07/27/2025 Substance Abuse - Denies Substance Abuse, 08/01/2025 Tobacco Former smoker, quit more than 30 days ago Tobacco Use:. Never Smokeless Tobacco Use:. Cigarettes, 0.5 per day. Started age 18.0 Years. Stopped age 36 Years., 08/01/2025 Family History Alzheimer's disease: Mother. Cardiac arrhythmia: Father. Diabetes mellitus type 2: Brother. Heart disease: Father. Hypercholesterolemia: Mother. Immunizations Vaccine Date Status Comments influenza virus vaccine, inactivated 07/05/2025 Recorded SARS-CoV-2 (COVID-19) mRNA-1273 vaccine 08/26/2021 Recorded 2025-07-12: [id number] SARS-CoV-2 (COVID-19) mRNA-1273 vaccine 11/28/2020 Given Other (see comment) SARS-CoV-2 (COVID-19) mRNA-1273 vaccine 10/31/2020 Given [facility] (see comment) [facility] Comment: Electronically Signed By: GREGORIA GREENWOOD, Ashu Rodríguez\Date and Time Signed: 08/01/25 15:26 EST Evaluation note Note Date & TypeNoteFacilityEvaluation noteNo assessment information available [facility] Work Phone: Hospital course Narrative Note Date & TypeNoteFacilityHospital course Narrative No data available for this section [facility] Discharge instructions Note Date & TypeNoteFacilityHospital Discharge instructions No data available for this section [facility] Progress note Note Date & TypeNoteFacilityProgress note No data available for this section [facility] Chief Complaint and Reason for Visit Chief Complaint Urinary frequency Summary Purpose Family History No Family History Records FoundNo Family History Records Found No data available for this section No Family History Records Found Advance Directives No Advanced Directives Records FoundNo Advanced Directives Records FoundNo Advanced Directives Records Found Additional Source Comments Care Teams (unrecognized sec tion and content) Team Status: Inactive Member Role Status Dates CORINA Sabillon Attending Provider Active Goals (unrecognized section and content) Goals may be documented in a n alternate section No data available for this section INFORMATION SOURCE (unrecogn ized section and content) DATE CREATED AUTHOR 07/09/2022 [facility] DATE CREATED AUTHOR AUTHOR'S ORGANIZ ATION 09/25/2022 [facility] DATE CREATED AUTHOR AUTHOR'S ORGANIZ ATION 08/03/2025 [facility] FOR RECORDS PERTAINING TO PATIENTS WHO ARE [...] BE BASED ON THE PRIMARY CLINICAL RECORDS. [facility]. provides no warranty or guarantee of the accuracy or completeness of information in this document.
== END 2025-08-29 10:51 | disposition home or self-care (01) ==
LOC: PST 10:50
PROVIDERS: PCP Family Medicine; Visit Provider Surgery
DX: Z01.818 Encounter for other preprocedural examination (principal); R19.5 Other fecal abnormalities

== ENCOUNTER 2025-09-06 06:25 | Day surgery (SDC) | payer MEDICARE, BC, SELFPAY ==
--- NOTE | 2025-09-06 | OP_ITS ---
OPERATION DATE: 09/06/2025 PREOPERATIVE DIAGNOSIS: Positive fecal occult blood test. POSTOPERATIVE DIAGNOSIS: Severe sigmoid diverticulosis. PROCEDURE: Colonoscopy to cecum. SURGEON: Ashu Real M.D. ANESTHESIA: Monitored anesthesia care. ESTIMATED BLOOD LOSS: Zero. INDICATIONS AND CONSENT: Patient is a 70-year-old female who presents for positive fecal occult blood testing. Indications, risks, benefits, alternatives of proceeding with colonoscopy were explained extensively to the patient, including the risks of bleeding, colon perforation or anesthetic complications. All of her questions were answered. Informed consent was obtained. PROCEDURE: Patient brought to the operating room, placed in the left lateral decubitus position. Monitored anesthesia care was provided. Rectal exam was performed which showed no masses or blood. The scope was inserted into the anal canal. Under direct visualization was advanced. It was advanced to the cecum where cecal markings were clearly identified. Upon withdrawal of the scope, mucosal surfaces were carefully examined. There were no mass lesions or polyps. No inflammatory changes or ulcerations. There was noted to be a good prep. There was severe sigmoid diverticulosis with spasm of the colon. No inflammatory changes or scarring. The scope was retroflexed in the anal canal. There was no significant hemorrhoidal disease. The scope was then withdrawn. Patient tolerated procedure well, was sent to recovery room in good condition. Follow up screening colonoscopy should be in 10 years, if patient remains in good health. CC: Ivan Ortega M.D. SHELIA
--- OUTSIDE RECORDS SUMMARY | 2025-09-06 06:28 | XMS_ITS | CCD ---
Author Organization [facility] Care Team Providers Care Cut In Station Operator Name Role Phone CORINA Thompson Attending Provider Lydia Thompson Attending Unavailable Lydia Thompson Admitting Unavailable NO FAMILY, PHYSICIAN Primary Care Unavailable KJ, DR REGAN Admitting Unavailable KJ, DR REGAN Primary Care Unavailable KJ, DR REGAN Attending Unavailable KJ, DR REGAN Admitting Unavailable KJ, DR REGAN Primary Care Unavailable KJ, DR REGAN Consulting Unavailable KJ, DR REGNA Attending Unavailable DARLINE, DR MEDHAT Asencio Consulting Unavailable KJ, DR RGEAN Admitting Unavailable KJ, DR REGAN Primary Care Unavailable KJ, DR REGAN Consulting Unavailable KJ, DR REGAN Attending Unavailable Jass Ortega Primary Care Physician [phone] Ashu KINNEY Attending Unavailable Jass Ortega Referring Unavailable Allergies Allergy ClassificationReported Allergen(s)Allergy TypeDate of OnsetReaction(s) Facility (1 source)Unable to obtain; Translations: [Unable to obtain]Propensity to adverse reactions (disorder)[facility] Medications Current Medications MedicationDrug Class(es)DatesSig (Normalized)Sig (Original)lactulose 667 mg/ml oral solution (1 source)Osmotic LaxativeStart: 33-85-8706jpzr 20 g by mouth four times daily as needed for constipationlactulose 10 g/15 mL Oral Syrup 20 gm = 30 mL, Oral, QID, PRN as needed for constipation, Refills(s) 0 Start Date: 07/12/25 Status: Ordered Medication Dispense Status: Completed Total Allowed Fills: 1 Fills Dispensed: 0simvastatin 20 mg oral tablet (1 source)HMG-CoA Reductase InhibitorStart: 62-07-7299vztd 1 tablet by mouth once daily in the eveningsimvastatin 20 mg Tab 20 mg = 1 tab(s), Oral, qPM, Refills(s) 0 Start Date: 07/12/25 Status: Ordered Medication Dispense Status: Completed Total Allowed Fills: 1 Fills Dispensed: 0Vitamin D2 2000 intl units oral capsule (1 source)Start: 81-28-2801lgdz 1 capsule by mouth once dailyVitamin D2 2000 intl units oral capsule 50 mcg = 1 cap(s), Oral, Daily, cap(s), Refills(s) 0 Start Date: 07/12/25 Status: Ordered Medication Dispense Status: Completed Total Allowed Fills: 1 Fills Dispensed: 0 Problems Active Problems Problem ClassificationProblemDateDocumented DateEpisodic/ChronicDisorders of lipid metabolism (2 sources)Hyperlipidemia, unspecified; Translations: [Hyperlipidemia]Onset: [id number] deficiencies (5 sources)Vitamin D deficiency, unspecified; Translations: [Vitamin D deficiency]Onset: 74-57-9861SylqlkcDlims gastrointestinal disorders (1 source)Other fecal abnormalitiesOnset: 38-36-0731YrcpxqnyUbvte gastrointestinal disorders (1 source)Chronic ovycqikbmelj34-91-2769ZptpqrwkIcsgi gastrointestinal disorders (2 sources)Occult blood in bdgixk56-90-6108UxdphgscQqjok screening for suspected conditions (not mental disorders or infectious disease) (4 sources)Encounter for screening mammogram for malignant neoplasm of breast; Translations: [ENC SCR MAMMO MALIG NEOPLASM BREAST]Onset: 35-41-2630Kqguxpkg Thyroid disorders (1 source)Lnrvuqxemgytgsm86-82-3731OezgsawQvcgaiibzovi (1 source)Frequency of micturition; Translations: [Frequency of micturition] Onset: 07-05-2022 Past or Other Problems Problem ClassificationProblemDateDocumented DateEpisodic/ChronicDeficiency and other anemia (1 source)Anemia, unspecified; Translations: [ANEMIA UNSPECIFIED]Onset: 34-54-6526CznitttiNqthdcpi mellitus without complication (1 source)Other abnormal glucose; Translations: [OTHER ABNORMAL GLUCOSE]Onset: 79-32-6357MxzwxrmnBzxjq gastrointestinal disorders (1 source)Constipation, unspecified; Translations: [CONSTIPATION UNSPECIFIED] Onset: 32-45-4120Ydnrshtu Results Test NameValueInterpretationReference RangeFacilityAmbulatory Visit Summaryon 37-00-1595Esprutbsjq Visit SummaryAmbulatory Visit Summary KEIKO ESCOBEDO :1955 [...] signed up for this yet, please contact [employer] at [phone] to get signed up today. Language Information Language assistance services are available as needed. [facility]D BEATRICE CADon 07-27-4886GZ MAMM SCREEN 3D BEATRICE CADPatient: KEIKO ESCOBEDO Exam Date: 09/18/2022 : 1955 Gender:F Ordering : DR JASS ORTEGA . Admission #: [id number] Family : Order #: [id number] CLICK HERE TO VIEW EXAM RADIOLOGY REPORT [...] Treatments None Family Cancers None LOCATION: [facility] BREAST COMPOSITION: Extremely dense, which lowers [...] by: Medhat Luciano M.D. on 09/18/2022 at 15:45[facility] Cultureon 66-91-2401Ughoesvh identified Cx Nom (U)Reason for Exam Urinary frequency Urine ORGANISM: Escherichia coli (O:ESCCOL) [place] Count >100,000 Aerobic LELAND Charge (NUC86) SUSCEPTIBILITY [...] RESISTANT TO ALL B-LACTAM DRUGS. PERFORMED BY: [facility] [address] [place] [address] PATHOLOGIST ENERGY CONTROL OFFICER EDI HARVEY M.D.[facility] Doctors HospitalComment on above: Performed By: #### CUU #### [facility] [address] [place] [address] USAINSULINon 14-22-9585Ymshvbi8.5 uIU/mLNormal2.6-24.9[facility] HospitalComment on above:Performed By: #### INSULIN #### [facility] [address] [place] [address] Dr. Chantel Rocha AUTO DIFFon 72-25-1306NSXD #0.0 103/ulNormal0.0-0.1St. [facility]'S HospitalComment on above:Performed By: #### CBC #### [facility] [address] [address] [address] Chantel Rosenbaumsophils/100 WBC (Bld)0.5 %Normal0.2-2.0[facility] Comment on above:Performed By: #### CBC #### [facility] [address] [address] [address] Chantel Romero #0.2 103/ulNormal0.0-0.7[facility] HospitalComment on above: Performed By: #### CBC #### [facility] [address] [address] [address] Chantel Francisosinophils/100 WBC (Bld)2.6 %Normal0.9-7.0[facility] Comment on above:Performed By: #### CBC #### [facility] [address] [place] [address] Dr. Chantel Francisrythrocyte distribution width (RBC) [Ratio]14.6 %Calfsj98.0-15.0 [facility] HospitalComment on above:Performed By: #### CBC #### [facility] [address] [place] [address] Dr. Chantel JamesHematocrit (Bld) [Volume fraction]39.4 %Rswbns70.0-48.0[facility] HospitalComment on above:Performed By: #### CBC #### [facility] [address] [place] [address] Dr. Chantel JamesHemoglobin (Bld) [Mass/Vol]12.6 g/aCWqzwmn44.0-16.0[facility] HospitalComment on above:Performed By: #### CBC #### [facility] [address] [place] [address] Dr. Chantel Marinelli #0.03 10e3/ulNormal0.00-0.03The [facility] HospitalComment on above:Performed By: #### CBC #### [facility] [address] [place] [address] Dr. Chantel Marinelli %0.4 %Normal0.0-0.5[facility] HospitalComment on above: Performed By: #### CBC #### [facility] [address] [place] [address] Dr. Chantel PorrasH #2.3 103/ulNormal1.2-3.8[facility] HospitalComment on above:Performed By: #### CBC #### [facility] [address] [place] [address] Dr. Chantel Mclainmphocytes/100 WBC (Bld)28.0 %Hgxjsl27.5-60.0[facility] HospitalComment on above:Performed By: #### CBC #### [facility] [address] [place] [address] Dr. Chantel Callahan DIFF REQNONormalThe [facility] HospitalComment on above: Performed By: #### CBC #### [facility] [address] [place] [address] Dr. Chantel Rodriguez (RBC) [Entitic mass]29.4 bgUiebik13.7-34.0[facility] HospitalComment on above:Performed By: #### CBC #### [facility] [address] [place] [address] Dr. Chantel Rodriguez (RBC) [Mass/Vol]32.0 g/fDJvmvvs55.9-35.2The [facility] HospitalComment on above:Performed By: #### CBC #### [facility] [address] [place] [address] Dr. Chantel Rodriguez (RBC) [Entitic vol]91.8 xBAinwqu87.0-99.0[facility] HospitalComment on above:Performed By: #### CBC #### [facility] [address] [place] [address] Dr. Chantel Vargas #0.6 103/ulNormal0.3-0.8[facility] HospitalComment on above:Performed By: #### CBC #### [facility] [address] [place] [address] Dr. Chantel Vegaocytes/100 WBC (Bld)7.7 %Normal1.7-12.0[facility] Comment on above:Performed By: #### CBC #### [facility] [address] [place] [address] Dr. Chantel Shelley #4.9 103/ulNormal1.4-6.5[facility] HospitalComment on above:Performed By: #### CBC #### [facility] [address] [place] [address] Dr. Chantel Desouzautrophils/100 WBC (Bld)60.8 %Tnmrrd16.0-75.0[facility] HospitalComment on above:Performed By: #### CBC #### [facility] [address] [place] [address] Dr. Chantel JamesPlatelet mean volume (Bld) [Entitic vol]10.5 fLNormal9.5-13.5The [facility] HospitalComuniversity of mich[facility] health on above:Performed By: #### CBC #### [facility] [address] [place] [address] Dr. Chantel JamesPLT261 103/esNfhuob570-134Omu [facility] HospitalComun[facility] on above: Performed By: #### CBC #### [facility] [address] [place] [address] Dr. Chantel JamesRBC4.29 106/ulNormal4.20-5.40[facility] on above:Performed By: #### CBC #### [facility] [address] [place] [address] Dr. Chantel JamesWBC8.1 103/ulNormal4.0-11.0[facility] on above: Performed By: #### CBC #### [facility] [address] [place] [address] Dr. Chantel JamesGLYCOHEMOGLOBIN A1Con 09-67-6540ETS RECOMMENDATIONSEE BELOWNormMercy Health West HospitalComuniversity of michigan health on above:Result Comment: ADA RECOMMENDED LIMIT 4.0 - 6.0 ADA THERAPEUTIC TARGET < 7.0 ACTION SUGGESTED > 7.0Performed By: #### A1C #### [facility] [address] [place] [address] Dr. Chantel JamesGlucose [Mass/Vol]105 mg/dLNormalThRegency Hospital Cleveland EastComuniversity of michigan health on above:Performed By: #### A1C #### [facility] [address] [place] [address] Dr. Chantel JamesHbA1c (Bld) [Mass fraction]5.3 %Normal4.5-6.2[facility] on above:Performed By: #### A1C #### [facility] [address] [place] [address] Dr. Chantel JamesIROAlisa 39-65-5938Dkzs [Mass/Vol]83.0 ug/zIYbszhj68.0-170.0[facility] on above:Performed By: #### VITAD, IRON #### [facility] [address] [address] [address] Chantel TamayoID PROFILEon 18-98-2787WTTT-HDL RATIO NORMSEE [facility] on above:Result Comment: 3.3 - 4.4 LOW RISK 4.4 - 7.1 AVERAGE RISK 7.1 - 11.0 MODERATE RISK >11.0 HIGH RISKPerformed By: #### LIPID, TSH, CMP #### [facility] [address] [address] [address] Chantel JamesCholesterol [Mass/Vol]250 mg/dLCritically high<=200[facility] on above:Performed By: #### LIPID, TSH, CMP #### [facility] [address] [address] [address] Chantel JamesCholesterol in HDL [Mass/Vol]49 mg/yQHvwfhf13-09TjiMemorial Health System on above:Performed By: #### LIPID, TSH, CMP #### [facility] [address] [address] [address] Chantel JamesCholesterol in LDL [Mass/Vol]173.8 mg/dLPremier Health Atrium Medical Center on above:Performed By: #### LIPID, TSH, CMP #### [facility] [address] [address] [address] Chantel Singletonestershayan.total/Cholesterol in HDL [Mass ratio]5.1 {ratio} NormalThe [facility] on above:Performed By: #### LIPID, TSH, CMP #### [facility] [address] [address] [address] Chantel JamesHDL NORMAL> or = 60 mg/dl - LOW CARDIOVASCULAR RISK <40 mg/dl - HIGH CARDIOVASCULAR RISKPremier Health Atrium Medical Center on above:Performed By: #### LIPID, TSH, CMP #### [facility] [address] [address] [address] Chantel JamesLDL CALC NORMALSEE BELOWNormalThe Chip HospitalComment on above:Result Comment: <100 mg/dl OPTIMAL 100 - 129 mg/dl NEAR OR ABOVE OPTIMAL 130 - 159 mg/dl BORDERLINE HIGH 160 - 189 mg/dl HIGH >190 mg/dl VERY HIGH Performed By: #### LIPID, TSH, CMP #### [facility] [address] [address] [address] Chantel JamesTriglyceride [Mass/Vol]136 mg/dLNormal<=150The [facility] Comment on above:Performed By: #### LIPID, TSH, CMP #### [facility] [address] [address] [address] Chantel JamesVLDL CALC27.2 mg/dLNormalThe [facility] HospitalComment on above: Performed By: #### LIPID, TSH, CMP #### [facility] [address] [place] [address] Dr. Chantel Chávez 14(COMP METB)on 24-44-3807Yrvwqyk [Mass/Vol]4.0 g/dLNormal 3.4-5.0[facility] HospitalComment on above:Performed By: #### LIPID, TSH, CMP #### [facility] [address] [address] [address] Chantel JamesAlbumin/Globulin [Mass ratio]1.1 {ratio}NormalThe [facility] HospitalComment on above:Performed By: #### LIPID, TSH, CMP #### [facility] [address] [place] [address] Dr. Chantel Rosario [Catalytic activity/Vol]75 U/PObnvma60-607Nfe [facility] HospitalComment on above:Performed By: #### LIPID, TSH, CMP #### [facility] [address] [address] [address] Chantel Santos [Catalytic activity/Vol]26 U/ULgvnxy08-38Wld [facility] HospitalComment on above:Performed By: #### LIPID, TSH, CMP #### [facility] [address] [place] [address] Dr. Chantel Valenzuela gap [Moles/Vol]13.3 mmol/LNormalThe [facility] Comment on above:Performed By: #### LIPID, TSH, CMP #### [facility] [address] [place] [address] Dr. Chantel JamesAST [Catalytic activity/Vol]25 U/SNqzljh73-96Icq [facility] HospitalComment on above:Performed By: #### LIPID, TSH, CMP #### [facility] [address] [place] [address] Dr. Chantel JamesBilirubin [Mass/Vol]0.5 mg/dLNormal0.2-1.0[facility] Comment on above:Performed By: #### LIPID, TSH, CMP #### [facility] [address] [place] [address] Dr. Chantel JamesCalcium [Mass/Vol]9.2 mg/dLNormal8.5-10.1The [facility] Comment on above:Performed By: #### LIPID, TSH, CMP #### [facility] [address] [place] [address] Dr. Chantel JamesChloride [Moles/Vol]104 mmol/POhxrfp36-908Jjn [facility] Comment on above:Performed By: #### LIPID, TSH, CMP #### [facility] [address] [place] [address] Dr. Chantel JamesCO2 [Moles/Vol]28.4 mmol/XFkthmq85.0-32.0[facility] Comment on above:Performed By: #### LIPID, TSH, CMP #### [facility] [address] [place] [address] Dr. Chantel JamesCreatinine [Mass/Vol]1.23 mg/dLCritically high0.55-1.02The [facility] HospitalComment on above:Performed By: #### LIPID, TSH, CMP #### [facility] [address] [place] [address] Dr. Chantel EucedaAF HXMCCJOX02 mL/min/1.74z6Aansufsbhz low>=60The [facility] HospitalComment on above:Performed By: #### LIPID, TSH, CMP #### [facility] [address] [place] [address] Dr. Yilan ChangEGFR-NON AF LTBCWOFI02 mL/min/1.93r7Kqtpxnqolx low>=60The [facility] HospitalComment on above:Performed By: #### LIPID, TSH, CMP #### [facility] [address] [address] [address] Chantel JamesGlobulin (S) [Mass/Vol]3.8 g/dLNormMcCullough-Hyde Memorial HospitalComment on above:Performed By: #### LIPID, TSH, CMP #### [facility] [address] [address] [address] Chantel JamesGlucose [Mass/Vol]99 mg/sOMmasmh04-332PgfSt. Anthony'S Hospital Comment on above:Performed By: #### LIPID, TSH, CMP #### [facility] [address] [place] [address] Dr. Chantel JamesPotassium [Moles/Vol]4.7 mmol/LNormal3.5-5.1The [facility] Comment on above:Performed By: #### LIPID, TSH, CMP #### [facility] [address] [place] [address] Dr. Chantel JamesProtein [Mass/Vol]7.8 g/dLNormal6.4-8.2The [facility] Comment on above:Performed By: #### LIPID, TSH, CMP #### [facility] [address] [place] [address] Dr. Chantel JamesSodium [Moles/Vol]141 mmol/IQakrzc288-471QfoSt. Anthony'S Hospital Comment on above:Performed By: #### LIPID, TSH, CMP #### [facility] [address] [place] [address] Dr. Chantel JamesUrea nitrogen [Mass/Vol]17.0 mg/dLNormal7.0-18.0The [facility] HospitalComment on above:Performed By: #### LIPID, TSH, CMP #### [facility] [address] [place] [address] Dr. Chantel JamesUrea nitrogen/Creatinine [Mass ratio]13.8 mg/mgNoParma Community General HospitalComment on above:Performed By: #### LIPID, TSH, CMP #### [facility] [address] [address] [address] Chantel Perry 19-24-0335VMH6.674 uIU/mLNormal0.358-3.740The [facility] HospitalComment on above:Performed By: #### LIPID, TSH, CMP #### [facility] [address] [address] [address] Chantel JamesVITAMIN D 25 OHon 79-97-0606IFQ D 25-OH29.9 ng/mLNormalThe [facility] HospitalComment on above:Performed By: #### VITAD, IRON #### [facility] [address] [place] [address] Dr. Chantel Matias [facility] HospitalComment on above: Result Comment: <20 ng/mL Vit D deficient 20 - <30 ng/mL Vit D insufficient 30 - 100 ng/mL Vit D sufficient >100 ng/mL Potential ToxicityPerformed By: #### VITAD, IRON #### [facility] [address] [place] [address] Dr. Chantel James Encounters Encounter DateEncounter TypeCare ProviderFacilityStart: 08-01-2025 End: 73-93-3017uvopvvcsegNxsxhwa R NILLFacility:[facility]utetart: 08-01-2025 End: 12-02-8370Ummciuy encounter procedureMichael R NILL [phone]-DyujeRiverview Health Institute [facility] [place] Start: 87-97-8176ulylykckhjKpnhsay NILLFacility:[facility] UnionueStart: 09-18-2022 End: 80-64-1240pmgujcmaicJL DOUGLAS HOYFacility:N8Fzqad: 07-05-2022 End: 67-52-9130aaafcuwztaKzniaheah BreaultFacility:[facility] Hospitaltart: 07-05-2022 End: 57-75-7925ohvkrmnrsvSXP-C Stephanie Breault Work Phone: [facility] Work Phone: Start: 07-05-2022 End: 69-98-9629Bsqppytf ReferredFNP-C Lydia Thompson Work Phone: [facility] Main CampusStart: 03-17-2022 End: 71-53-4237qvhtqyejwzXG JASS HOYFacility:X6Aepjf: 20-24-6346wfxrgnhbpvVP JASS HOYFacility:H1 Procedures DateProcedureProcedure DetailPerforming ClinicianStart: 23-31-2406Usfkmptelkq Ashu NILL Bilateral cataract extractionMichael NILL Biopsy of breastMichael NILL ColonoscopyMichael NILL Excision of cystMichael NILL Ligation of fallopian tubeMichael NILL Plan of Treatment DateCare ActivityDetailAuthorBacteria identified in Urine by CultureCleveland Clinic [facility]view [facility] Immunizations Immunization DateImmunizationNotesCare UkbitdgwKroqgtws83-88-6657llfwwcljp virus vaccine, unspecified formulationMichael NILL [phone]-GutgpRiverview Health Institute [facility] [place] 08-26-4606PHBN-CoV-2 (COVID-19) mRNA-1273 vaccineMichael NILL [phone]-YndumPeoples Hospital [facility] [place] Comment on above:Result Comment: 2025-07-12: KYQ2680-21-3550RCQY-BjD-3 (COVID- 19) mRNA-1273 vaccineMichael NILL [facility]Comment on above:Reason for Medication: Other (see comment)48-14-7446WSOW-CoV-2 (COVID-19) mRNA-1273 vaccineMichael NILL [facility]Comment on above:Reason for Medication: Other (see comment) Payers DatePayer CategoryPayerPolicy [id number] 1962Self-pay [id number] [id number] Social History DateTypeDetailFacilityTobacco smoking status NHISUnknown if ever smokedGalion Community Hospital Work Phone: Start: 31-64-9436Mof Assigned At [facility] Centertart: 75-09-7966Rxfgrpm smoking statusEx-smoker (finding)[facility] [place]vueTobacco smoking statusNeverRiverview Health Institute [facility] Surgery BellevueSexual OrientationRiverview Health Institute [facility] [place] Sex Assigned At [facility] Hospitaltart: 61-75-6254YktUexjui (finding)[facility] Clinical Note 08-01-2025 Note Date & MffwFykhAwyosedz09-75-2325 NoteGeneral Surgery Office/Clinic Note Chief Complaint consultation [...] mRNA-1273 vaccine 10/31/2020 Given Other (see comment) [facility] HealthComment on above:Result Comment: Electronically Signed By: GREGORIA GREENWOOD, Ashu Rodríguez\Date and Time Signed: 08/01/25 15:26 EST Evaluation note Note Date & TypeNoteFacilityEvaluation noteNo assessment information available [facility] Work Phone: Hospital course Narrative Note Date & TypeNoteFacilityHospital course Narrative No data available for this section [facility] [place] [facility] Discharge instructions Note Date & TypeNoteFacilityHospital Discharge instructions No data available for this section [facility] Progress note Note Date & TypeNoteFacilityProgress note No data available for this section [facility] Chief Complaint and Reason for Visit Chief [...] section and content) DATE CREATED AUTHOR 07/09/2022 [facility] DATE CREATED AUTHOR AUTHOR'S ORGANIZ ATION 09/25/2022 [facility] DATE CREATED AUTHOR AUTHOR'S ORGANIZ ATION 08/03/2025 [facility] FOR RECORDS PERTAINING TO PATIENTS WHO ARE [...] PRIMARY CLINICAL RECORDS. [facility] [employer] [facility]. provides no warranty or guarantee of the accuracy or completeness of information in this document.
[2025-09-06 06:30] VITALS: BP 130/80; PULSE 97; TEMP 36.2; O2SAT 97; BMI 20.1
[2025-09-06 07:53] VITALS: BP 119/71; PULSE 92; TEMP 36.3; O2SAT 100
[2025-09-06 08:08] VITALS: BP 124/70; PULSE 88; O2SAT 100
[2025-09-06 08:25] VITALS: BP 124/80; PULSE 84; O2SAT 100
== END 2025-09-06 08:27 | disposition home or self-care (01) ==
LOC: SURGOUT 06:26
PROVIDERS: PCP Family Medicine; Visit Provider Surgery
PROC: (CPT 45378; principal; 2025-09-06 07:30)
DX: R19.5 Other fecal abnormalities (principal); K57.30 Diverticulosis of large intestine without perforation or abscess without bleeding; E78.5 Hyperlipidemia, unspecified; E05.90 Thyrotoxicosis, unspecified without thyrotoxic crisis or storm; K59.09 Other constipation; Z98.51 Tubal ligation status; Z87.891 Personal history of nicotine dependence
CPT/HCPCS: 45378; J2704